=== PATIENT | male | born 1940 | race Caucasian/White ===

== ENCOUNTER 2016-10-07 12:46 | Observation (INO) ==
[2016-10-07] MEDS ORDERED: Furosemide 40 MG/4 ML VIAL IVP ONE (13:05)
--- NOTE | 2016-10-07 13:06 | Emergency Department Note ---
Disposition Clinical Impression: Atrial fibrillation with slow ventricular response, Acute on chronic renal failure Acute exacerbation of CHF (congestive heart failure) Qualifiers: Congestive heart failure type: unspecified congestive heart failure type Qualified Code(s): I50.9 - Heart failure, unspecified Disposition: Admitted As Inpatient Condition: Fair Time of Disposition: 15:02 SOB HPI - General Chief Complaint: ED Shortness of Breath/Dyspnea Stated Complaint: [place], retaining water Source: patient Limitations: no limitations Nursing Notes Reviewed: Yes Vital Signs Reviewed: Yes - History of Present Illness 76-year-old male with history of CAD status post double bypass in 1992, hypertension, hyperlipidemia, new diagnosis of atrial fibrillation, started on pelvic place on 09/12/2016 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 Patient states that he has had increased lower extremity swelling has some extra swelling on his abdomen as well. 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 History of CHF, CK D but is not on dialysis. 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 Denies fever or chills, approximately 10 pounds weight gain over the last month. Pt Subjective Complaint: shortness of breath Onset (ago): day(s) (3) Severity: moderate Consistency/Duration: intermittent Improves with: nothing Worsens with: lying flat, exertion Known history of: COPD, congestive heart failure Associated symptoms: Reports: denies other symptoms Treatment prior to arrival: none Cough present: Yes Cough Description: Voluntary Sputum production: No Sputum Amount: None - Related Data Home oxygen amount: none Previous Rx's Medication Instructions Recorded Albuterol Sulfate [Albuterol 1 puff IH Q4HR #1 hfa.aer.ad 09/12/16 Inhaler] Apixaban [Eliquis] 5 mg PO BID 30 Days 09/12/16 PredniSONE 40 mg PO DAILY 5 Days 09/12/16 Allergies Allergy/AdvReac Type Severity Reaction Status Date / Time No Known Allergies Allergy Verified 10/01/16 13:55 Review of Systems: A 14 point ROS was obtained and was negative except as per below or as documented in the HPI. Constitutional: Denies: fever, chills, weakness, weight change Eyes: Denies: eye pain, eye discharge, vision change ENT: Denies: ear pain, throat pain, hearing loss, epistaxis, congestion, Cardiovascular: Denies: chest pain, palpitations, dyspnea on exertion, edema, syncope Respiratory: dyspnea,Denies: cough, wheezes, hemoptysis, stridor Gastrointestinal: Denies: abdominal pain, nausea, vomiting. diarrhea, constipation, hematemesis, hematochezia Genitourinary: Denies: urgency, dysuria, frequency, hematuria Musculoskeletal: Denies: back pain, neck pain, arthralgia, myalgia Integumentary: leg swelling Denies: rash, abrasion, lesions Neurological: Denies: headache, weakness, numbness, paresthesias, confusion, abnormal gait Psychiatric: Denies: anxiety, depression, suicidal thoughts, homicidal thoughts , Endocrine: Denies: fatigue Hematological/Lymphatic: Denies: easy bleeding, easy bruising Allergic/Immunologic: Denies: facial swelling, urticaria All systems ED: reviewed and negative except as stated. Past Medical History - Past Medical History Attestation: Yes The following information was validated with the patient. Source: patient Medical history: Reports: coronary artery disease, diabetes, hyperlipidemia, hypertension, myocardial infarction Psychiatric history: Reports: no psych history - Social History Smoking Status: Current every day smoker Smokeless Tobacco Status: No Alcohol use: Reports: none Drug use: Reports: none Physical Exam General: alert and oriented, in NAD, appears stated age, is pleasant and cooperative to exam Head: NCAT, no lesions Eyes: sclera anicteric, conjunctiva normal, PERRLA bilaterally, EOMI Bilaterally Ears: normal inspection, external ear wnl Nose: nasal septum nondeviated, sinuses nontender Throat: good dentition, mucous membranes moist Neck: no lymphadenopathy, trachea midline no deviation, no JVD Resp: Crackles at the bases bilaterally CV: Bradycardia, diminished breaths heart sounds normal S1 and S2, no m/g/r, Pulses +2 Rad, +2 DP/PT Abdomen: Soft, NTND, no hepatosplenomegaly, no hernias, Negative Rovsing's sign , Negative Phelps's sign Back: normal inspection, no tenderness to palpation, Negative CVA tenderness bilaterally Neuro: A&O3, CN II-XII grossly intact bilaterally, no motor or sensory deficits bilaterally, gait normal, GCS 15 [id number] Ext: normal inspection, symmetric Active and Passive ROM UE and LE bilaterally , +3 pitting bilaterally Psych: normal mood, normal affect Skin: No rashes, skin warm, dry, intact - General Limitations: no limitations General appearance: alert, in no apparent distress Course Course Narrative: 76-year-old male history of CABG, nasal onset A. fib, his EKG shows A. fib with slow ventricular response rate of 49, ST segment changes relatively similar to his previous EKG last month, will get a full dyspnea workup including BNP, BMP CBC, troponin, chest x-ray and fluid diuresis Lasix, patient is on Lopressor but does not know his dose, and is compliant on his Eliquis Plan to diuresis admit to medicine for further workup. Vital Signs Temperature 98.3 F 10/07/16 12:49 Pulse Rate 51 10/07/16 12:49 Respiratory Rate 18 10/07/16 12:49 Blood Pressure 192/82 10/07/16 12:49 O2 Sat by Pulse Oximetry 96 10/07/16 12:49 Temperature 0 F L 10/07/16 15:31 Pulse Rate 51 10/07/16 14:59 Respiratory Rate 0 10/07/16 15:31 Blood Pressure 0/0 10/07/16 15:31 O2 Sat by Pulse Oximetry 98 10/07/16 14:59 Oxygen Delivery Oxygen Delivery Room Air Shortness of Breath/Dyspnea - [facility] Narrative Medical decision making narrative: Patient with atrial fibrillation, acute on chronic renal failure, acute CHF exacerbation, improved some with diuresis, added 0.4 sublingual nitroglycerin in the emergency department, patient is not on oxygen in the ED, is fairly stable. Plan for diuresis and admission hospitalist for further workup, Dr. Torres accepted, likely need echocardiography and cardiology consult - Differential Diagnosis Likely: acute exacerbation of chronic obstructive airways disease, congestive heart failure, pulmonary embolism - Medical Records Medical records reviewed: Yes I reviewed the patient's medical records. - Lab Data Lab results reviewed: Yes I reviewed the patient's lab results. Result diagrams: 10/07/16 13:39 10/07/16 13:39 Lab Results 10/07/16 10/07/16 10/07/16 Range/Units 13:39 13:39 13:39 WBC 9.3 (4.3-11.1) K/mcL RBC 4.00 L (4.19-5.50) M/mcL Hgb 12.9 (12.9-16.9) g/dL Hct 37.6 (37.5-50.1) % MCV 94.0 (83.0-100.0) fL MCH 32.3 (28.0-33.3) pg MCHC 34.3 (31.6-35.5) g/dL RDW 13.2 (11.5-14.5) % Plt Count 189 (140-400) K/mcL MPV 10.0 (9.4-12.4) fL Immature Gran % 0.2 (0-4) % Seg Neutrophils % 73.8 % Lymphocytes % 18.3 % Monocytes % 5.3 % Eosinophils % 1.6 % Basophils % 0.8 % Neutrophils # 6.8 (1.6-8.9) K/mcL Lymphocytes # 1.7 (0.6-4.6) K/mcL Monocytes # 0.5 (0.0-1.3) K/mcL Eosinophils # 0.2 (0.0-0.6) K/mcL Basophils # 0.1 (0.0-0.2) K/mcL Immature Plt Fraction 3.1 (1.1-6.1) % PT (9.4-12.1) Seconds INR APTT (26.0-36.0) Seconds Sodium 137 (136-145) mEq/L Potassium 4.2 (3.5-4.5) mEq/L Chloride 99 (98-109) mEq/L Carbon Dioxide 28 (19-29) mEq/L BUN 41 H (8-26) mg/dL Creatinine 2.80 H (0.72-1.25) mg/dL Est GFR ( Amer) 27 L (> 60) Est GFR (Non-Af Amer) 22 L (> 60) BUN/Creatinine Ratio 15 (6-26) Glucose 189 H (70-99) mg/dL Calculated Osmolality 299 (280-300) Calcium 9.5 (8.6-10.8) mg/dL Troponin I 0.02 (0-0.03) ng/mL B-Natriuretic Peptide (0-100) pg/mL Urine Color (Yellow) Urine Clarity (Clear) Urine pH (5.0-8.0) pH Units Ur Specific [place] (1.010-1.025) Urine Protein (Neg-Trace) mg/dL Urine Glucose (UA) (Normal) mg/dL Urine Ketones (Negative) mg/dL Urine Blood (Negative) Urine Nitrite (Negative) Urine Bilirubin (Negative) Urine Urobilinogen (Normal) mg/dL Ur Leukocyte Esterase (Negative) Urine Microscopic WBC (0-3) per hpf Ur Squamous Epith Cells (None-Few) per lpf Urine Bacteria (None-Few) per hpf Ur Culture Indicated? (NO) 10/07/16 10/07/16 10/07/16 Range/Units 13:39 13:39 14:12 WBC (4.3-11.1) K/mcL RBC (4.19-5.50) M/mcL Hgb (12.9-16.9) g/dL Hct (37.5-50.1) % MCV (83.0-100.0) fL MCH (28.0-33.3) pg MCHC (31.6-35.5) g/dL RDW (11.5-14.5) % Plt Count (140-400) K/mcL MPV (9.4-12.4) fL Immature Gran % (0-4) % Seg Neutrophils % % Lymphocytes % % Monocytes % % Eosinophils % % Basophils % % Neutrophils # (1.6-8.9) K/mcL Lymphocytes # (0.6-4.6) K/mcL Monocytes # (0.0-1.3) K/mcL Eosinophils # (0.0-0.6) K/mcL Basophils # (0.0-0.2) K/mcL Immature Plt Fraction (1.1-6.1) % PT 15.2 H (9.4-12.1) Seconds INR 1.4 APTT 37.0 H (26.0-36.0) Seconds Sodium (136-145) mEq/L Potassium (3.5-4.5) mEq/L Chloride (98-109) mEq/L Carbon Dioxide (19-29) mEq/L BUN (8-26) mg/dL Creatinine (0.72-1.25) mg/dL Est GFR ( Amer) (> 60) Est GFR (Non-Af Amer) (> 60) BUN/Creatinine Ratio (6-26) Glucose (70-99) mg/dL Calculated Osmolality (280-300) Calcium (8.6-10.8) mg/dL Troponin I (0-0.03) ng/mL B-Natriuretic Peptide 834 H (0-100) pg/mL Urine Color Yellow (Yellow) Urine Clarity Clear (Clear) Urine pH 7.0 (5.0-8.0) pH Units Ur Specific [place] 1.007 L (1.010-1.025) Urine Protein 100 H (Neg-Trace) mg/dL Urine Glucose (UA) Normal (Normal) mg/dL Urine Ketones Negative (Negative) mg/dL Urine Blood Negative (Negative) Urine Nitrite Negative (Negative) Urine Bilirubin Negative (Negative) Urine Urobilinogen Normal (Normal) mg/dL Ur Leukocyte Esterase Trace H (Negative) Urine Microscopic WBC 0-3 (0-3) per hpf Ur Squamous Epith Cells Few (None-Few) per lpf Urine Bacteria Few (None-Few) per hpf Ur Culture Indicated? YES A (NO) - Radiology Data Radiology results reviewed: Yes I reviewed the patient's radiology results. Chest X-Ray 10/07/16 13:05 IMPRESSION: 1. No acute cardiopulmonary disease. Specifically, no pulmonary edema. D/ / 10/07/2016 14:20:49 Bhumika Lan MD / Ayesha Turner Interpreting Provider: Bhumika Lan MD - EKG Data EKG attestation: Yes I reviewed and interpreted this EKG. Rate: Reports: bradycardia Rhythm: Reports: A.Fib (Ventricular rate 49 CT unseen, QRS 117 QTC 421) Interpretation: Reports: no acute changes (Previous EKG 09/12/2016) - Core Measures AMI Core Measures Followed: No Measure Exclusions: not indicated Critical Care Time Critical Care Time: Yes Total Critical Care Time: 30 Attestation: Critical care performed: Time is exclusive of separately billable procedures. Time includes: direct patient care, patient reassessment, coordination of patient care, interpretation of data (laboratory data, radiology data, and respiratory data), review of patient's medical records, medical consultation and documentation of patient care. Procedures included in critical care time: Procedures excluded from critical care time: Attestation Statement - Attestation Attestation: I examined this patient and my medical decision-making was reviewed with the BLEACHING MACHINE OPERATOR/PA/Advanced Practice Nurse/Resident Physician. I agree with the documented findings, disposition and treatment plan as described except to the extent set forth below. Patient presents to the emergency department with chief complaint of fluid overload. Patient has an extensive cardiac history. Recently diagnosed with A. fib and started on anticoagulation. States he has been gaining weight in his legs and swelling. He feels short of breath. On examination he appears well. He does have 3+ pitting edema bilaterally. Diffuse rails. Plan. Patient has clinically fluid overloaded. He has tried increasing his Lasix and outpatient with no success. New-onset A. fib that has not been worked up. We will admit.
[2016-10-07 13:49] LABS: Basophils # 0.1 K/mcL (0.0-0.2); Basophils % 0.8 %; Eosinophils # 0.2 K/mcL (0.0-0.6); Eosinophils % 1.6 %; Hematocrit 37.6 % (37.5-50.1); Hemoglobin 12.9 g/dL (12.9-16.9); Immature Granulocytes % 0.2 % (0-4); Immature Platelets 3.1 % (1.1-6.1); Lymphocytes # 1.7 K/mcL (0.6-4.6); Lymphocytes % 18.3 %; Mean Corpuscular HGB Conc 34.3 g/dL (31.6-35.5); Mean Corpuscular Hemoglobin 32.3 pg (28.0-33.3); Monocytes # 0.5 K/mcL (0.0-1.3); Monocytes % 5.3 %; Neutrophils # 6.8 K/mcL (1.6-8.9); Platelet Count 189 K/mcL (140-400); Red Cell Distribution Width 13.2 % (11.5-14.5); Segmented Neutrophils % 73.8 %
[2016-10-07 13:59] LABS: INR 1.4; Prothrombin Time 15.2 Seconds (9.4-12.1)
[2016-10-07 14:03] LABS: Calcium 9.5 mg/dL (8.6-10.8); Potassium 4.2 mEq/L (3.5-4.5)
[2016-10-07 14:18] LABS: Bilirubin,Urine Negative (Negative); Blood,Urine Negative (Negative); Clarity,Urine Clear (Clear); Color,Urine Yellow (Yellow); Glucose,Urine (UA) Normal (Normal); Ketones,Urine Negative (Negative); Leukocyte Esterase,Urine Trace (Negative); Nitrite,Urine Negative (Negative); Protein,Urine 100 mg/dL (Neg-Trace); Specific Gravity,Urine 1.007 (1.010-1.025); Urobilinogen,Urine Normal (Normal)
[2016-10-07 14:31] LABS: Squamous Epithelial Cell,Urine Few per lpf (None-Few)
[2016-10-07 14:33] LABS: Bacteria,Urine Few per hpf (None-Few); WBC,Urine 0-3 per hpf (0-3)
[2016-10-07] MEDS ORDERED: Nitroglycerin 0.4 MG TAB.SUBL SL PRN (14:59)
[2016-10-07 16:14] LABS: Albumin 3.4 g/dL (3.5-5.0); Bilirubin,Direct 0.2 mg/dL (0.0-0.5); Bilirubin,Indirect 0.3 mg/dL (0.0-1.2); Bilirubin,Total 0.5 mg/dL (0.2-1.2); Globulin 3.3 g/dL (2.4-3.5); Total Protein 6.7 g/dL (6.0-8.3)
[2016-10-07] MEDS ORDERED: Ondansetron 4 MG/2 ML VIAL IVP PRN (16:21)
[2016-10-07] MEDS ORDERED: Acetaminophen 325 MG TABLET PO PRN (16:21)
--- NOTE | 2016-10-07 16:21 | Internal Med History&Physical ---
<Doris Morales - Last Filed: 10/07/16 16:45> Date of Encounter: 10/07/16 Time of Encounter: 15:30 Assessment and Plan (1) Protein malnutrition Current visit: Yes Status: Chronic - Concern of protein malnutrition given reported poor appetite and proteinuria as seen on UA. - This likely causes third spacing and contributes to patient's persistent swelling of abdomen and bilateral lower extremities despite of aggressive diuresis. - Albumin 3.4. - Prealbumin pending. - Event Specialist Product Demonstrator consultation and appreciate nutrition recommendations. (2) CHF (congestive heart failure) Current visit: Yes Status: Chronic - I personally feel this is not acute exacerbation of CHF given patient has no shortness of breath, lungs don't sound wet and CXR doesn't suggest pulmonary edema. Patient's persistent swelling of abdomen and bilateral lower extremities are likely secondary third spacing associated with protein malnutrition. - BNP is relative stable compared to 4 weeks ago. - Will obtain medical records especially regarding latest echo result from [facility]. - Continue Lasix. - Fluid restriction 1.5 L. Qualifiers: Congestive heart failure type: unspecified congestive heart failure type Congestive heart failure chronicity: unspecified congestive heart failure chronicity Qualified Code(s): I50.9 - Heart failure, unspecified (3) CKD (chronic kidney disease) Current visit: Yes Status: Chronic - SCr 2.80 & eGFR 22 on initial presentation, relatively stable compared to SCr 2.56 & eGFR 24 on 09/12/16. - I personally don't think this is ABRAHAM given SCr increase less than 3 mg/dL and no decrease in urine output per patient. - Patient saw Dr. Steel in the past. - Continue to monitor renal function and electrolytes. Qualifiers: Chronic kidney disease stage: stage 4 (severe) Qualified Code(s): N18.4 - Chronic kidney disease, stage 4 (severe) (4) HTN (hypertension) Current visit: Yes Status: Chronic - BP as high as 192/82 on initial presentation. Likely rebound hypertension given patient reports not taking his BP medications yet. - Continue home regiment antihypertensive including clonidine, lisinopril and Norvasc. - Continue to monitor. Qualifiers: Hypertension type: essential hypertension Qualified Code(s): I10 - Essential (primary) hypertension (5) A-fib Current visit: Yes Status: Chronic - Likely status post ablation given constant bradycardia noted. - Continue Eliquis for anticoagulation. Qualifiers: Atrial fibrillation type: chronic Qualified Code(s): I48.2 - Chronic atrial fibrillation (6) CAD (coronary artery disease) Current visit: Yes Status: Chronic - Status post CABG. - Continue lisinopril and statin. Qualifiers: Coronary Disease-Associated Artery/Lesion type: [place] artery [place] vs. transplanted heart: [place] heart Associated angina: angina presence unspecified Qualified Code(s): I25.10 - Atherosclerotic heart disease of [place] coronary artery without angina pectoris (7) Diabetes mellitus Current visit: Yes Status: Acute - Basal and sliding scale insulin. - ADA diet. Qualifiers: Diabetes mellitus type: type 2 Diabetes mellitus complication status: with kidney complications Diabetes mellitus complication detail: with chronic kidney disease Diabetes mellitus middle or intermediate school principal insulin use: without jail use Chronic kidney disease stage: stage 4 (severe) Qualified Code(s): E11.22 - Type 2 diabetes mellitus with diabetic chronic kidney disease; N18.4 - Chronic kidney disease, stage 4 (severe) (8) DVT prophylaxis Current visit: Yes Status: Acute - Continue Eliquis. Internal Medicine - H&P: HPI Chief complaint: "I am retaining water" Admitted From: Emergency Dept Plans for Post Hospital Care: Home History of present illness: Mr. Bassett is a 76 year old male with PMH of CAD s/p CABG in 1992, CHF, A-fib on Eliquis, s/p pacemaker/defibrillator, DM on insulin, HTN, HLD, CKD. Patient presented with persistent swelling of abdomen and bilateral lower extremities for a month. Patient also reports 10-lb weight gain over a month. Patient saw his cardiology at [facility] last Saturday and his Lasix was changed from 40 mg PO BID to 80 mg BID. Patient thinks the medication change doesn't work since his urine output is about the same and "doesn't increase as he anticipated". He even tried to drink more water with the thinking that it will help him urinate more. Patient presented to ED today with concern of fluid overload and it potential effect on his breathing despite of he has been breathing without difficulty. Patient does have some nausea and poor appetite. Patient denies chest pain/discomfort, palpitation, lightheadedness, syncope, fever, chills, cough, shortness of breath. Patient was started on insulin one month ago and he states he is urinating protein. Patient states he has been compliant to all his medications. He admits drinking about 28 oz of fluid every day. Patient cannot recall when's his last echocardiogram done. Patient is full code. Past Med Surg Social Fam HX - Past Medical History Medical history: coronary artery disease (s/p CABG), diabetes, hyperlipidemia, hypertension, myocardial infarction Psychiatric history: no psych history - Past Surgical History Surgical History: coronary bypass (CABG), pacemaker/AICD - Social History Smoking Status: Current every day smoker Smokeless Tobacco Status: No Alcohol use: none Drug use: none - Family History Mother Hx Family Cardiac Disorders: Yes (HTN) Hx Family Endocrine Disorder: Yes (DM) Internal Medicine - H&P: Meds Albuterol Sulfate [Albuterol Inhaler] 1 puff IH Q4HR #1 hfa.aer.ad 09/12/16 [Rx] Apixaban [Eliquis] 5 mg PO BID 30 Days 09/12/16 [Rx] PredniSONE 40 mg PO DAILY 5 Days 09/12/16 [Rx] CloNIDine 0.1 mg PO BID 10/07/16 [History] Glimepiride 4 mg BID 10/07/16 [History] Lantus 10 units SQ DAILY 10/07/16 [History] Lasix 80 mg PO BID 10/07/16 [History] Lisinopril 40 mg PO DAILY 10/07/16 [History] Lovastatin 20 mg PO DAILY 10/07/16 [History] Norvasc 10 mg PO DAILY 10/07/16 [History] Allergies No Known Allergies Allergy (Verified 10/01/16 13:55) All Systems PM: A 10-system review of systems was performed and is negative for pertinent findings except as documented above in the HPI. - Constitutional Constitutional: anorexia, weight gain (10 lb over a month.), no chills, no fever (s) - EENT Eyes: no change in vision Ears: no decreased hearing Nose, mouth and throat: no dysphagia - Cardiovascular Cardiovascular ROS IM: as per HPI, edema, no chest pain, no lightheadedness, no palpitations, no syncope - Respiratory Respiratory: no cough, no dyspnea, no hemoptysis, no excessive phlegm production - Gastrointestinal Gastrointestinal: abdominal pain (Abdominal swelling/fullness), nausea, no diarrhea, no hematochezia, no melena, no vomiting - Genitourinary Genitourinary ROS male: no difficulty urinating, no dysuria, no hematuria - Musculoskeletal Musculoskeletal ROS IM: no arthralgias, no myalgias - Integumentary Integumentary IM: no pruritus, no rash - Neurological Neurological ROS: no focal weakness, no numbness, no tingling - Hematologic/Lymphatic Hematologic/Lymphatic: easy bruising, no easy bleeding - Constitutional Vitals: Temp Pulse Resp BP Pulse Ox 98.1 F 93 15 197/77 94 L 10/07/16 16:01 10/07/16 16:01 10/07/16 16:01 10/07/16 16:10/07/16 16:01 General appearance: Present: cooperative, A&O X 3, no acute distress, answers questions appropriately - Head Head exam: Present: atraumatic, normocephalic - Eye Eye exam: Present: PERRL, conjuntiva pink, sclera anicteric - Neck Neck exam general surgery: Present: supple, trachea midline. Absent: lymphadenopathy - Respiratory Respiratory exam: Absent: accessory muscle use, rales, rhonchi, wheezes Additional comments: Course breathing sounds - Cardiovascular Cardiovascular exam: Present: irregular rhythm, +S1, +S2. Absent: diastolic murmur, gallop, rubs, systolic murmur - GI/Abdominal GI/Abdominal exam: Present: normal bowel sounds, soft, no peritoneal signs. Absent: distended, tenderness - Extremities Exam Extremities exam: Present: pedal edema ([id number] BLE pitting edema), warm, radial pulses palpable and symetrical. Absent: calf tenderness, cyanotic - Neurological Exam Neurological exam: Present: CN II-XII intact, oriented X3, no focal deficits. Absent: pronater drift, facial droop, speech deficit - Skin Skin exam: Present: dry, intact, warm Internal Med - H&P Results - Labs CBC & Chem 7: 10/07/16 13:39 10/07/16 13:39 <Isreal Torres - Last Filed: 10/07/16 17:41> Date of Encounter: 10/07/16 Internal Medicine - H&P: HPI History of present illness: Mr. Bassett is a 76 year old male All Systems PM: A 10-system review of systems was performed and is negative for pertinent findings except as documented above in the HPI. - Constitutional Vitals: Temp Pulse Resp BP Pulse Ox 98.1 F 93 15 197/77 94 L 10/07/16 16:01 10/07/16 16:01 10/07/16 16:01 10/07/16 16:10/07/16 16:01 Internal Med - H&P Results - Labs CBC & Chem 7: 10/07/16 13:39 10/07/16 13:39 - Attending Attestation I saw and examined this patient independently. I have discussed this case with the resident Dr. Rufus Morales. I agree with the H&P, physical examination findings, assessment and plan as documented by the resident. Patient with history of CHF, has been lately no fluid retention. Additionally, the patient likely has a component of malnutrition. Proteinuria noted. We will continue with diuretic therapy and monitor electrolytes. Prealbumin levels have been requested. D/W patient.
[2016-10-07] MEDS ORDERED: Dextrose Gel 15 GM PO PRN ×2 (16:27)
[2016-10-07] MEDS ORDERED: D5% in Water 1,000 ML IV PRN (16:27)
[2016-10-07] MEDS ORDERED: *HR* Dextrose 50 % in Water (Syg) 50 ML SYRINGE IVP PRN (16:27)
[2016-10-07] MEDS: amLODIPine 5 MG TABLET PO SCH (17:49)
[2016-10-07] MEDS: Insulin LISPRO 300 UNITS/3 ML VIAL SQ SCH (17:49)
[2016-10-07] MEDS: Lisinopril 20 MG TABLET PO SCH (17:49)
[2016-10-07] MEDS: Furosemide 40 MG TABLET PO SCH (20:10)
[2016-10-07] MEDS: APIXABAN 5 MG TABLET PO SCH (20:11)
[2016-10-07] MEDS: cloNIDine HCl 0.1 MG TABLET PO SCH (20:11)
[2016-10-07] MEDS ORDERED: Insulin LISPRO 300 UNITS/3 ML VIAL SQ SCH (21:00)
[2016-10-08 05:46] LABS: Hematocrit 37.1 % (37.5-50.1); Hemoglobin 12.3 g/dL (12.9-16.9); Mean Corpuscular HGB Conc 33.2 g/dL (31.6-35.5); Mean Corpuscular Hemoglobin 31.5 pg (28.0-33.3); Mean Corpuscular Volume 94.9 fL (83.0-100.0); Mean Platelet Volume 10.6 fL (9.4-12.4); Neutrophils # 5.5 K/mcL (1.6-8.9); Platelet Count 178 K/mcL (140-400); Red Blood Count 3.91 M/mcL (4.19-5.50); Red Cell Distribution Width 13.2 % (11.5-14.5); Segmented Neutrophils % 63.4 %
[2016-10-08 05:47] LABS: Basophils # 0.1 K/mcL (0.0-0.2); Basophils % 0.6 %; Eosinophils # 0.2 K/mcL (0.0-0.6); Immature Granulocytes % 0.2 % (0-4); Lymphocytes # 2.3 K/mcL (0.6-4.6); Lymphocytes % 26.3 %; Monocytes # 0.7 K/mcL (0.0-1.3); Monocytes % 7.5 %
[2016-10-08 05:55] LABS: Calcium 8.9 mg/dL (8.6-10.8); Potassium 3.7 mEq/L (3.5-4.5)
[2016-10-08] MEDS: Furosemide 40 MG TABLET PO SCH (08:23)
[2016-10-08] MEDS: cloNIDine HCl 0.1 MG TABLET PO SCH (08:23)
[2016-10-08] MEDS: Lisinopril 20 MG TABLET PO SCH (08:23)
[2016-10-08] MEDS: amLODIPine 5 MG TABLET PO SCH (08:23)
[2016-10-08] MEDS: APIXABAN 5 MG TABLET PO SCH (08:23)
[2016-10-08] MEDS: Insulin LISPRO 300 UNITS/3 ML VIAL SQ SCH ×2 (08:24→11:30)
[2016-10-08] MEDS ORDERED: LANTUS 10 UNIT SQ SCH (09:00)
[2016-10-08] MEDS ORDERED: Insulin DETEMIR 100 UNIT/ML X5UNITS SQ SCH (09:00)
[2016-10-08 11:14] VITALS: BP 157/75
--- NOTE | 2016-10-08 14:14 | Discharge Summary ---
Date of Encounter: 10/08/16 Time of Encounter: 13:30 - Discharge Medications Prescriptions: Nitroglycerin 0.4 mg SL Q5MIN PRN #30 tab.subl PRN Reason: Chest Pain Acetaminophen [Tylenol] 650 mg PO Q6HR PRN #60 tablet PRN Reason: mild pain or fever Cyanocobalamin (B-12) [Vitamin B12] 1,000 mcg PO DAILY #90 tablet Ergocalciferol (VITAMIN D2) [Vitamin D2] 50,000 unit PO QWEEK #10 capsule Thiamine HCl 250 mg PO DAILY #90 tablet Home Medications: Albuterol Sulfate [Albuterol Inhaler] 1 puff IH Q4HR #1 hfa.aer.ad 09/12/16 [Rx] Amlodipine Besylate 10 mg PO DAILY 10/07/16 [History] CloNIDine HCl 0.1 mg PO BID 10/07/16 [History] Glimepiride [Amaryl] 4 mg PO BID 10/07/16 [History] Insulin Glargine,Hum.rec.anlog [Lantus Solostar] 10 unit SQ DAILY 10/07/16 [ History] Lisinopril [Zestril] 40 mg PO DAILY 10/07/16 [History] Lovastatin [Mevacor] 20 mg PO HS 10/07/16 [History] Acetaminophen [Tylenol] 650 mg PO Q6HR PRN #60 tablet 10/08/16 [Rx] Cyanocobalamin (B-12) [Vitamin B12] 1,000 mcg PO DAILY #90 tablet 10/08/16 [Rx] Ergocalciferol (VITAMIN D2) [Vitamin D2] 50,000 unit PO QWEEK #10 capsule [Rx] Furosemide [Lasix] 40 mg PO BID #0 10/08/16 [Rx] Metoprolol [Lopressor] 100 mg PO BID 10/08/16 [History] Nitroglycerin 0.4 mg SL Q5MIN PRN #30 tab.subl 10/08/16 [Rx] Thiamine HCl 250 mg PO DAILY #90 tablet 10/08/16 [Rx] Allergies/Adverse Reactions: Allergies No Known Allergies Allergy (Verified 10/01/16 13:55) Date of admission: 10/07/16 15:09 Primary care physician: Malik Roberts Consults: 10/07/16 16:42 Consult to Nutrition [CONS] Routine Comment: Protein malnutrit w/ proteinuria & poor PO intake Consulting Provider: NUTRITION Reason for Dietary Consult: Supplemental Nutrition - Patient Status Disposition: Home, Self-Care Condition: Good Functional capacity at discharge: independent ambulation Overall status at discharge: patient is back to baseline - Discharge Instructions Follow Up With: Malik Roberts DO [Primary Care Provider] - Additional Instructions: Follow-up with nephrology and cardiology in 1 week. Daily weight. Compression stocking lower extremities. Reported daily weight and vital sign to nephrology and cardiology. BMP checked in 1 week - Diet and Activity Activity: resume usual activities as tolerated Diet: low fat, low cholesterol, low salt diet Hospital course: Mr. Bassett is a 76 year old male - Time Spent with Patient Total time spent providing and/or coordinating discharge services: - Constitutional Vitals: Temp Pulse Resp BP Pulse Ox 97.3 F L 61 16 157/75 96 10/08/16 11:13 10/08/16 11:13 10/08/16 11:13 10/08/16 11:13 10/08/16 11:13 General appearance: Present: cooperative, A&O X 3, no acute distress, answers questions appropriately
--- NOTE | 2016-10-08 14:37 | Electrocardiograph Report ---
[facility] Test Date: 2016-10-07 Pat Name: Nino Bassett Department: 103 Room: 3B33 Gender: M Service Team Leader: [facility] [place] : 1940 Requested By: Tk Barrett Order Number: [id number] Reading MD: Michele Rosa MD Measurements Intervals [place] Rate: 49 P: TN: 0 QRS: 58 QRSD: 117 T: 209 QT: 451 QTc: 421 Interpretive Statements ATRIAL FIBRILLATION WITH SLOW VENTRICULAR RESPONSE POOR R WAVE PROGRESSION INCOMPLETE LBBB Electronically Signed On 10-08-16 14:36:16 EST by Michele Rosa MD
--- NOTE | 2016-12-29 09:34 | Event Note ---
Date of Encounter: 12/29/16 Time of Encounter: 09:31 76 y/o male placed in observation early this AM for presumed exac CHF. Pt admitted here 10/23 for similar symptoms. He normally follows with [facility]. Denies chest pain and dyspnea currently. Exam Alert. Conversant Heart reg - murmur heard Lungs clear at this time Edema bilateral lower extremities. Plan Echo results pending Creatinine monitoring Will use low dose lasix drip overnight Not sure this is overt CHF at this time Renal consult in AM
== END 2016-10-08 15:00 | disposition home or self-care (01) ==
LOC: 3BNU 12:46 → EMEROO 12:46 → 3BNU 15:50
PROVIDERS: ADMIT Internal Medicine; ATTEND Internal Medicine

== ENCOUNTER 2016-12-28 19:36 | Observation (INO) ==
[2016-12-28 21:35] LABS: Basophils # 0.1 K/mcL (0.0-0.2); Basophils % 0.9 %; Eosinophils # 0.2 K/mcL (0.0-0.6); Eosinophils % 1.8 %; Hematocrit 41.1 % (37.5-50.1); Hemoglobin 13.9 g/dL (12.9-16.9); Immature Granulocytes % 0.4 % (0-4); Lymphocytes # 2.7 K/mcL (0.6-4.6); Lymphocytes % 26.5 %; Mean Corpuscular HGB Conc 33.8 g/dL (31.6-35.5); Mean Corpuscular Hemoglobin 31.7 pg (28.0-33.3); Mean Corpuscular Volume 93.6 fL (83.0-100.0); Mean Platelet Volume 9.8 fL (9.4-12.4); Monocytes # 0.7 K/mcL (0.0-1.3); Monocytes % 6.7 %; Neutrophils # 6.5 K/mcL (1.6-8.9); Platelet Count 219 K/mcL (140-400); Red Blood Count 4.39 M/mcL (4.19-5.50); Red Cell Distribution Width 13.2 % (11.5-14.5); Segmented Neutrophils % 63.7 %
[2016-12-28 21:48] LABS: Calcium 10.2 mg/dL (8.6-10.8); Potassium 4.1 mEq/L (3.5-4.5)
--- NOTE | 2016-12-28 22:06 | Emergency Department Note ---
START Narrative - START START: I examined this patient and my medical decision-making was reviewed with the JAVA CORE DEVELOPER/PA/Advanced Practice Nurse/Resident Physician. I agree with the documented findings, disposition and treatment plan as described except to the extent set forth below. ED attending note: Patient seen with emergency medicine resident Dr. Henry. Please see a copy of his note for details of the H&P, evaluation, management and disposition of this patient. We independently had [id number] contact with the patient Briefly: Recently discharged from [facility] with CHF. Set 30 pound weight gain over the past month with dyspnea on exertion. He has atrial fibrillation and bibasilar rales. Patient did diuresis and screening labs. EKG shows A. fib with rate control. Provided 40 minutes critical care services to this patient. Disposition pending.
[2016-12-28] MEDS ORDERED: Furosemide 80 MG in 0.9 % Sodium Chloride 50 ML IVPB ONE (22:11)
[2016-12-28] MEDS ORDERED: Furosemide 100 MG/10 ML VIAL IVP ONE (22:15)
--- NOTE | 2016-12-28 22:31 | Emergency Department Note ---
Disposition Clinical Impression: CHF (congestive heart failure) Qualifiers: Congestive heart failure type: unspecified congestive heart failure type Congestive heart failure chronicity: acute on chronic Qualified Code(s): I50.9 - Heart failure, unspecified Fluid overload Qualifiers: Hypervolemia type: unspecified Qualified Code(s): E87.70 - Fluid overload, unspecified Chronic kidney disease Qualifiers: Chronic kidney disease stage: unspecified stage Qualified Code(s): N18.9 - Chronic kidney disease, unspecified Disposition: Admitted As Inpatient Condition: Good Time of Disposition: 00:38 SOB HPI - General Chief Complaint: ED Shortness of Breath/Dyspnea Stated Complaint: "LINWOOD/Swelling" Time Seen by Provider: 12/28/16 21:10 Source: patient Limitations: no limitations Nursing Notes Reviewed: Yes Vital Signs Reviewed: Yes - History of Present Illness Pt Subjective Complaint: shortness of breath Onset (ago): day(s) (3-4 days) Severity: moderate Consistency/Duration: constant Improves with: rest, upright position Worsens with: lying flat, movement Known history of: congestive heart failure - Related Data Home Medications Medication Instructions Recorded Confirmed Amlodipine Besylate 10 mg PO DAILY 10/07/16 12/28/16 CloNIDine HCl 0.1 mg PO TID 10/07/16 12/28/16 Glimepiride [Amaryl] 4 mg PO BID 10/07/16 12/28/16 Insulin Glargine,Hum.rec.anlog 10 unit SQ DAILY 10/07/16 12/28/16 [Lantus Solostar] Lisinopril [Zestril] 40 mg PO DAILY 10/07/16 12/28/16 Lovastatin [Mevacor] 20 mg PO HS 10/07/16 12/28/16 Metoprolol [Lopressor] 100 mg PO BID 10/08/16 12/28/16 Albuterol Sulfate [Albuterol 2 puff IH Q4HR PRN 12/28/16 12/28/16 Inhaler] Apixaban [Eliquis] 2.5 mg PO BID 12/28/16 12/28/16 Furosemide [Lasix] 80 mg PO BID 12/28/16 12/28/16 HydrALAZINE 25 mg PO BID 12/28/16 12/28/16 Omeprazole [PriLOSEC] 20 mg PO DAILY 12/28/16 12/28/16 Previous Rx's Medication Instructions Recorded Acetaminophen [Tylenol] 650 mg PO Q6HR PRN #60 tablet 10/08/16 Cyanocobalamin (B-12) [Vitamin B12] 1,000 mcg PO DAILY #90 tablet 10/08/16 Ergocalciferol (VITAMIN D2) 50,000 unit PO QWEEK #10 capsule 10/08/16 [Vitamin D2] Nitroglycerin 0.4 mg SL Q5MIN PRN #30 tab.subl 10/08/16 Thiamine HCl 250 mg PO DAILY #90 tablet 10/08/16 Allergies Allergy/AdvReac Type Severity Reaction Status Date / Time No Known Allergies Allergy Verified 12/28/16 19:49 All systems ED: reviewed and negative except as stated. Cardiovascular: Reports: dyspnea on exertion, orthopnea. Denies: chest pain, palpitations Respiratory: Reports: dyspnea. Denies: wheezes Gastrointestinal: Denies: nausea, vomiting, diarrhea Genitourinary: Denies: dysuria Musculoskeletal: Denies: back pain, neck pain Neurological: Denies: headache Past Medical History - Past Medical History Attestation: Yes The following information was validated with the patient. Source: patient Medical history: Reports: coronary artery disease, diabetes, hyperlipidemia, hypertension, myocardial infarction Surgical history: Reports: coronary bypass (CABG), pacemaker/AICD Psychiatric history: Reports: no psych history - Social History Smoking Status: Current every day smoker Smokeless Tobacco Status: No Alcohol use: Reports: none Drug use: Reports: none Physical Exam - General Limitations: no limitations General appearance: alert - Respiratory Respiratory exam: Present: normal lung sounds bilaterally. Absent: respiratory distress, wheezes, accessory muscle use - Cardiovascular Cardiovascular exam: Present: regular rate, normal rhythm, normal heart sounds - Abdominal Exam Abdominal exam: Present: soft, Non-Tender, normal bowel sounds. Absent: tenderness, distention, guarding, rebound, rigidity - Extremities Exam Extremities exam: Present: normal inspection, full ROM, pedal edema (Bilateral pitting edema up to the mid shaft of the thigh) - Neurological Exam Neurological exam: Present: alert, oriented X3, CN II-XII intact - Skin Skin exam: Present: warm, dry, intact, normal color Course Course Narrative: Patient seen and examined the time of arrival. See history of present illness. 76-year-old male presents here today with what he describes as 30 pound weight gain over the last week and a half. He was just discharged from the hospital within the last week for similar issue. He has a previous CABG and defibrillator in place. He does not have heart failure according to him. Patient was concerned and decided to come the emergency room because his legs were getting more swollen and is having shortness of breath with exertion. Patient denies any other significant medical history this time. He denies any medication changes. He has not had any fevers chills nausea vomiting or diarrhea. Denies chest pain headache vision changes. His main complaint is shortness of breath and swelling. Patient has +3 pitting edema up to the mid thigh. Lungs are clear. Mild anasarca in the abdomen. Patient also has history of poor nutritional status. Some of this could be secondary to poor oncotic pressure. Patient did have EKG chest x-ray labs including BNP and troponin ordered. Patient will also be provided a first dose of Lasix here in the emergency room. Disposition will most likely be admission to the hospital. Patient is in no distress at this time resting comfortably in the bed as long as he does not exert himself. - Reevaluation(s) Reevaluation #1: Patient showing focal signs of fluid overload secondary to poorly controlled congestive heart failure. He also has been on Lasix chronically. He might have resistance to this medication this time. Patient initially refused chest x -ray. Hospitalist did not feel comfortable admitting the patient had chest x- ray completed. We are waiting for that imaging study to be completed this time and he will have admission process completed that point. Patient stable resting comfortably in the bed Time: 00:38 Reevaluation #2: Chest x-ray stable. Patient to be admitted for failure of antibiotic regimen. No other acute issues at this time. Hospitalist accepted without any issue. Patient stable and in good medical condition of the time of admission process been completed. Time: 01:26 Vital Signs Temperature 98.7 F 12/28/16 19:49 Pulse Rate 69 12/28/16 19:49 Respiratory Rate 20 12/28/16 19:49 Blood Pressure 178/77 12/28/16 19:49 O2 Sat by Pulse Oximetry 96 12/28/16 19:49 Temperature 98.7 F 12/28/16 19:49 Pulse Rate 63 12/29/16 00:15 Respiratory Rate 20 12/29/16 01:17 Blood Pressure 167/89 12/29/16 01:17 O2 Sat by Pulse Oximetry 97 12/29/16 00:15 Oxygen Delivery Oxygen Delivery Room Air Shortness of Breath/Dyspnea - MDM Narrative Medical decision making narrative: Fluid overload, exertional dyspnea, CHF - Medical Records Medical records reviewed: Yes I reviewed the patient's medical records. - Lab Data Lab results reviewed: Yes I reviewed the patient's lab results. Result diagrams: 12/28/16 21:28 12/28/16 21:28 Lab Results 12/28/16 12/28/16 12/28/16 Range/Units 21:28 21:28 21:28 WBC 10.1 (4.3-11.1) K/mcL RBC 4.39 (4.19-5.50) M/mcL Hgb 13.9 (12.9-16.9) g/dL Hct 41.1 (37.5-50.1) % MCV 93.6 (83.0-100.0) fL MCH 31.7 (28.0-33.3) pg MCHC 33.8 (31.6-35.5) g/dL RDW 13.2 (11.5-14.5) % Plt Count 219 (140-400) K/mcL MPV 9.8 (9.4-12.4) fL Immature Gran % 0.4 (0-4) % Seg Neutrophils % 63.7 % Lymphocytes % 26.5 % Monocytes % 6.7 % Eosinophils % 1.8 % Basophils % 0.9 % Neutrophils # 6.5 (1.6-8.9) K/mcL Lymphocytes # 2.7 (0.6-4.6) K/mcL Monocytes # 0.7 (0.0-1.3) K/mcL Eosinophils # 0.2 (0.0-0.6) K/mcL Basophils # 0.1 (0.0-0.2) K/mcL Sodium 138 (136-145) mEq/L Potassium 4.1 (3.5-4.5) mEq/L Chloride 100 (98-109) mEq/L Carbon Dioxide 24 (19-29) mEq/L BUN 55 H (8-26) mg/dL Creatinine 3.44 H (0.72-1.25) mg/dL Est GFR ( Amer) 21 L (> 60) Est GFR (Non-Af Amer) 17 L (> 60) BUN/Creatinine Ratio 16 (6-26) Glucose 245 H (70-99) mg/dL Calculated Osmolality 309 H (280-300) Calcium 10.2 (8.6-10.8) mg/dL Troponin I 0.03 (0-0.03) ng/mL B-Natriuretic Peptide (0-100) pg/mL 12/28/16 Range/Units 21:28 WBC (4.3-11.1) K/mcL RBC (4.19-5.50) M/mcL Hgb (12.9-16.9) g/dL Hct (37.5-50.1) % MCV (83.0-100.0) fL MCH (28.0-33.3) pg MCHC (31.6-35.5) g/dL RDW (11.5-14.5) % Plt Count (140-400) K/mcL MPV (9.4-12.4) fL Immature Gran % (0-4) % Seg Neutrophils % % Lymphocytes % % Monocytes % % Eosinophils % % Basophils % % Neutrophils # (1.6-8.9) K/mcL Lymphocytes # (0.6-4.6) K/mcL Monocytes # (0.0-1.3) K/mcL Eosinophils # (0.0-0.6) K/mcL Basophils # (0.0-0.2) K/mcL Sodium (136-145) mEq/L Potassium (3.5-4.5) mEq/L Chloride (98-109) mEq/L Carbon Dioxide (19-29) mEq/L BUN (8-26) mg/dL Creatinine (0.72-1.25) mg/dL Est GFR ( Amer) (> 60) Est GFR (Non-Af Amer) (> 60) BUN/Creatinine Ratio (6-26) Glucose (70-99) mg/dL Calculated Osmolality (280-300) Calcium (8.6-10.8) mg/dL Troponin I (0-0.03) ng/mL B-Natriuretic Peptide 982 H (0-100) pg/mL - Radiology Data Radiology results reviewed: Yes I reviewed the patient's radiology results. - EKG Data EKG attestation: Yes I reviewed and interpreted this EKG. Rate: Reports: normal Rhythm: Reports: A.Fib Brethren/QRS: Reports: normal When compared to previous EKG there are: no significant changes (04/27/05) Interpretation: Reports: no acute changes, unchanged when compared to prior tracing (date)
--- NOTE | 2016-12-29 02:21 | Internal Med History&Physical ---
Date of Encounter: 12/29/16 Time of Encounter: 02:16 Assessment and Plan (1) Fluid overload Current visit: Yes Status: Acute Patient with history of CHF, he is non-tachycardic, no hypoxemic, chest x-ray did not reveal signs of pulmonary edema. However his BNP is elevated. Will check input and output and monitor the patient closely. We will obtain and monitor kidney function tests and electrolytes. Upon reviewing patient's medications he is on amlodipine which could potentially cause edema lower extremities. We will hold amlodipine for now. Oxygen therapy as needed. Trend troponin. Qualifiers: Hypervolemia type: unspecified Qualified Code(s): E87.70 - Fluid overload, unspecified (2) HTN (hypertension) Current visit: No Status: Chronic Uncontrolled hypertension, we will resume home medications. Avoid JAMAL inhibitor in the setting of acute kidney injury. Qualifiers: Hypertension type: essential hypertension Qualified Code(s): I10 - Essential (primary) hypertension (3) Acute on chronic renal failure Current visit: No Status: Acute Patient with history of chronic kidney disease. Avoid nephrotoxic agents. Monitor kidney function tests. (4) Diabetes mellitus Current visit: No Status: Acute Monitor fingerstick. Insulin therapy. Qualifiers: Diabetes mellitus type: type 2 Diabetes mellitus complication status: with kidney complications Diabetes mellitus complication detail: with chronic kidney disease Diabetes mellitus computer terminal operator insulin use: without computer terminal operator use Chronic kidney disease stage: stage 4 (severe) Qualified Code(s): E11.22 - Type 2 diabetes mellitus with diabetic chronic kidney disease; N18.4 - Chronic kidney disease, stage 4 (severe) (5) DVT prophylaxis Current visit: No Status: Acute Patient on eliquis due to history of atrial fibrillation (6) A-fib Current visit: No Status: Chronic Continue with rate control medications. Anticoagulation with eliquis. Qualifiers: Atrial fibrillation type: chronic Qualified Code(s): I48.2 - Chronic atrial fibrillation (7) CHF (congestive heart failure) Current visit: Yes Status: Chronic Obtain echo. Qualifiers: Congestive heart failure type: unspecified congestive heart failure type Congestive heart failure chronicity: acute on chronic Qualified Code(s): I50.9 - Heart failure, unspecified Internal Medicine - H&P: HPI Chief complaint: fluid retention Admitted From: Emergency Dept Plans for Post Hospital Care: Home History of present illness: Mr. Bassett is a 76 year old male with PMH of CAD s/p CABG in 1992, CHF, A-fib on Eliquis, s/p pacemaker/defibrillator, DM on insulin, HTN, HLD, CKD. The patient states that 3 months ago was started on insulin and has been gaining weight ever since. Additionally he is on Lasix 80 mg twice a day however he has gained around 30 pounds in the last 6 weeks. He went to see a primary care physician recently and was recommended to obtain a chest x-ray for further evaluation. The patient denies shortness of breath at rest, fever, chills, however has dyspnea on exertion. Recently, he has noticed swelling in both lower extremities and increase in abdominal girth. He was evaluated in our emergency department and his blood work was essentially unremarkable however he has some elevation in the brain natriuretic peptide and worsening kidney function. Chest x-ray did not reveal pulmonary edema. He has been hypertensive since he presented to our emergency department. He did receive a dose of 80 mg Lasix via IV in the ED. He was admitted for further management and workup. Initial troponin was negative. Past Med Surg Social Fam HX - Past Medical History Medical history: coronary artery disease, diabetes, hyperlipidemia, hypertension , myocardial infarction Psychiatric history: no psych history - Past Surgical History Surgical History: coronary bypass (CABG), pacemaker/AICD - Social History Smoking Status: Current every day smoker Smokeless Tobacco Status: No Alcohol use: none Drug use: none - Family History Mother Hx Family Cardiac Disorders: Yes (HTN) Hx Family Endocrine Disorder: Yes (DM) Internal Medicine - H&P: Meds Amlodipine Besylate 10 mg PO DAILY 10/07/16 [History] CloNIDine HCl 0.1 mg PO TID 10/07/16 [History] Glimepiride [Amaryl] 4 mg PO BID 10/07/16 [History] Insulin Glargine,Hum.rec.anlog [Lantus Solostar] 10 unit SQ DAILY 10/07/16 [ History] Lisinopril [Zestril] 40 mg PO DAILY 10/07/16 [History] Lovastatin [Mevacor] 20 mg PO HS 10/07/16 [History] Acetaminophen [Tylenol] 650 mg PO Q6HR PRN #60 tablet 10/08/16 [Rx] Cyanocobalamin (B-12) [Vitamin B12] 1,000 mcg PO DAILY #90 tablet 10/08/16 [Rx] Ergocalciferol (VITAMIN D2) [Vitamin D2] 50,000 unit PO QWEEK #10 capsule [Rx] Metoprolol [Lopressor] 100 mg PO BID 10/08/16 [History] Nitroglycerin 0.4 mg SL Q5MIN PRN #30 tab.subl 10/08/16 [Rx] Thiamine HCl 250 mg PO DAILY #90 tablet 10/08/16 [Rx] Albuterol Sulfate [Albuterol Inhaler] 2 puff IH Q4HR PRN 12/28/16 [History] Apixaban [Eliquis] 2.5 mg PO BID 12/28/16 [History] Furosemide [Lasix] 80 mg PO BID 12/28/16 [History] HydrALAZINE 25 mg PO BID 12/28/16 [History] Omeprazole [PriLOSEC] 20 mg PO DAILY 12/28/16 [History] Allergies No Known Allergies Allergy (Verified 12/28/16 19:49) All Systems PM: A 10-system review of systems was performed and is negative for pertinent findings except as documented above in the HPI. - Constitutional Constitutional: as per HPI, no chills, no fever(s), no night sweats - EENT Eyes: as per HPI, no change in vision, no discharge, no pain, no photophobia Ears: as per HPI, no ear discharge, no ear pain, no tinnitus Nose, mouth and throat: as per HPI, no dysphagia, no nasal discharge, no neck pain, no sore throat - Breasts Breasts: as per HPI - Cardiovascular Cardiovascular ROS IM: as per HPI, dyspnea, dyspnea on exertion, edema, irregular heart rhythm, no chest pain, no diaphoresis, no lightheadedness, no palpitations, no syncope - Respiratory Respiratory: as per HPI, cough, dyspnea, dyspnea on exertion, no wheezing, no excessive phlegm production - Gastrointestinal Gastrointestinal: as per HPI, no abdominal pain, no diarrhea, no hematemesis, no hematochezia, no melena, no nausea, no vomiting - Genitourinary Genitourinary ROS male: as per HPI - Musculoskeletal Musculoskeletal ROS IM: as per HPI, no numbness, no tingling - Integumentary Integumentary IM: as per HPI, no rash, no unusual bruising - Neurological Neurological ROS: as per HPI, no confusion, no convulsions, no focal weakness, no numbness, no tingling, no tremor(s) - Psychiatric Psychiatric: as per HPI - Endocrine Endocrine IM: as per HPI - Hematologic/Lymphatic Hematologic/Lymphatic: as per HPI, no easy bruising - Allergic/Immunologic Allergic/Immunologic: as per HPI - Constitutional Vitals: Temp Pulse Resp BP Pulse Ox 98.7 F 63 20 167/89 97 12/28/16 19:49 12/29/16 00:15 12/29/16 01:17 12/29/16 01:17 12/29/16 00:15 General appearance: Present: cooperative, A&O X 3, pleasant, no acute distress - Head Head exam: Present: atraumatic, normocephalic - Eye Eye exam: Present: PERRL, conjuntiva pink, sclera anicteric Pupils: Present: PERRL - Neck Neck exam general surgery: Present: supple, trachea midline. Absent: lymphadenopathy - Respiratory Respiratory exam: Present: CTAB. Absent: accessory muscle use, rales, rhonchi, wheezes - Cardiovascular Cardiovascular exam: Present: irregular rhythm, +S1, +S2. Absent: diastolic murmur, gallop, rubs, systolic murmur - GI/Abdominal GI/Abdominal exam: Present: normal bowel sounds, soft, no peritoneal signs. Absent: distended, tenderness - Extremities Exam Extremities exam: Present: pedal edema, warm, radial pulses palpable and symetrical. Absent: calf tenderness, cyanotic - Neurological Exam Neurological exam: Present: CN II-XII intact, oriented X3, no focal deficits. Absent: pronater drift, facial droop, speech deficit - Skin Skin exam: Present: dry, intact Internal Med - H&P Results - Labs CBC & Chem 7: 12/28/16 21:28 12/28/16 21:28 - Impressions ITS Impressions Chest X-Ray 12/29/16 22:47 IMPRESSION: 1. No active pulmonary disease. 2. Cardiomegaly without overt failure. D/ / Javier Mccollum MD / Javier Mccollum MD Interpreting Provider: Javier Mccollum MD
[2016-12-29] MEDS ORDERED: Naloxone 0.4 MG/ML INJ IVP PRN (02:29)
[2016-12-29] MEDS ORDERED: Acetaminophen 325 MG TABLET PO PRN ×2 (02:29→09:37)
[2016-12-29] MEDS ORDERED: Ondansetron 4 MG/2 ML VIAL IVP PRN (02:29)
[2016-12-29] MEDS ORDERED: Dextrose Gel 15 GM PO PRN ×2 (02:33)
[2016-12-29] MEDS ORDERED: *HR* Dextrose 50 % in Water (Syg) 50 ML SYRINGE IVP PRN (02:33)
[2016-12-29] MEDS ORDERED: D5% in Water 1,000 ML IVC PRN (02:33)
[2016-12-29] MEDS ORDERED: Insulin LISPRO 300 UNITS/3 ML VIAL SQ ONE (04:01)
[2016-12-29] MEDS: Metoprolol 100 MG TABLET PO SCH ×3 (04:35→20:14)
[2016-12-29] MEDS: Insulin LISPRO 300 UNITS/3 ML VIAL SQ SCH ×5 (04:35→20:13)
[2016-12-29 07:00] LABS: Basophils # 0.1 K/mcL (0.0-0.2); Basophils % 0.6 %; Eosinophils # 0.2 K/mcL (0.0-0.6); Eosinophils % 2.3 %; Hematocrit 36.9 % (37.5-50.1); Hemoglobin 12.5 g/dL (12.9-16.9); Immature Granulocytes % 0.4 % (0-4); Lymphocytes # 2.3 K/mcL (0.6-4.6); Lymphocytes % 24.3 %; Mean Corpuscular HGB Conc 33.9 g/dL (31.6-35.5); Mean Corpuscular Volume 94.4 fL (83.0-100.0); Mean Platelet Volume 10.1 fL (9.4-12.4); Monocytes # 0.8 K/mcL (0.0-1.3); Monocytes % 8.6 %; Neutrophils # 6.1 K/mcL (1.6-8.9); Platelet Count 182 K/mcL (140-400); Red Blood Count 3.91 M/mcL (4.19-5.50); Red Cell Distribution Width 13.4 % (11.5-14.5); Segmented Neutrophils % 63.8 %
[2016-12-29 07:16] LABS: Albumin 3.3 g/dL (3.5-5.0); Albumin/Globulin Ratio 0.9 (1.1-2.2); Bilirubin,Direct 0.2 mg/dL (0.0-0.5); Bilirubin,Indirect 0.1 mg/dL (0.0-1.2); Bilirubin,Total 0.3 mg/dL (0.2-1.2); Calcium 9.7 mg/dL (8.6-10.8); Globulin 3.5 g/dL (2.4-3.5); Magnesium 1.8 mg/dL (1.6-2.6); Potassium 3.5 mEq/L (3.5-4.5); Total Protein 6.8 g/dL (6.0-8.3)
[2016-12-29 07:36] LABS: Thyroid Stimulating Hormone 3.152 mcIU/mL (0.350-4.840)
[2016-12-29] MEDS ORDERED: hydrALAZINE 25 MG TABLET PO SCH ×2 (08:00→21:00)
[2016-12-29] MEDS ORDERED: Cyanocobalamin (B-12) 1,000 MCG TABLET PO SCH (09:00)
[2016-12-29] MEDS: APIXABAN 2.5 MG TABLET PO SCH ×2 (09:13→20:14)
[2016-12-29] MEDS: cloNIDine HCl 0.1 MG TABLET PO SCH ×3 (09:13→20:14)
[2016-12-29] MEDS ORDERED: Furosemide 240 MG in D5% in Water 96 ML IVC SCH (09:36)
[2016-12-29] MEDS ORDERED: Nitroglycerin 0.4 MG TAB.SUBL SL PRN (09:37)
[2016-12-29 09:58] LABS: Bilirubin,Urine Negative (Negative); Blood,Urine Trace (Negative); Clarity,Urine Cloudy (Clear); Color,Urine Yellow (Yellow); Glucose,Urine (UA) Normal (Normal); Ketones,Urine Negative (Negative); Leukocyte Esterase,Urine Small (Negative); Nitrite,Urine Negative (Negative); PH,Urine 6.5 pH Units (5.0-8.0); Protein,Urine 100 mg/dL (Neg-Trace); Specific Gravity,Urine 1.012 (1.010-1.025); Urobilinogen,Urine Normal (Normal)
[2016-12-29 10:01] LABS: Bacteria,Urine Many per hpf (None-Few); Hyaline Casts,Urine None Seen per lpf (None-Few); RBC,Urine 0-3 per hpf (0-3); Squamous Epithelial Cell,Urine None Seen per lpf (None-Few); WBC,Urine 15-30 per hpf (0-3)
--- NOTE | 2016-12-29 10:48 | ECHO - Doppler Report ---
Echocardiogram Name: Nino Bassett Date of Study: 12/29/2016 Date: 1940 Ht: 66.0 in Medical Record#: [id number] Age: 76 Wt: 165.0 lb Gender: Male BSA: 1.84 Order #: [id number] Location: [facility] Room #: 2A45 Reading Physician: Dre Lopez MD, [facility] Waiter/Waitress Take Out: Agueda Garcia Ordering Physician: Isreal Torres MD Primary Physician: Malik Roberts DO Indications: Congestive heart failure Impressions: Mild LV systolic dysfunction, LVEF 45%. There are regional wall motion abnormalities, see diagram below. Atypical septal motion consistent with prior cardiac surgery. Indeterminate diastolic function due to atrial fibrillation. Normal right ventricular size. Mild RV hypokinesis. A device lead was visualized in the right atrium and right ventricle. Mildly dilated left atrium. Mildly dilated right atrium. Mild tricuspid regurgitation. Mild pulmonary hypertension. Estimated RVSP =38 mmHg. Left Ventricular Wall Motion: Rest Echo Findings The mid inferior, basal inferior and basal inferior lateral carreon were hypokinetic. All other wall segments showed normal motion. Findings: Study Quality * Suboptimal echo windows. ECG Findings * Atrial fibrillation. Left Ventricle * Mild LV systolic dysfunction, LVEF 45%. There are regional wall motion abnormalities, see diagram below. * Atypical septal motion consistent with prior cardiac surgery. * Normal LV chamber size and wall thickness. * Indeterminate diastolic function due to atrial fibrillation. Right Ventricle * Normal right ventricular size. Mild RV hypokinesis. Device lead * A device lead was visualized in the right atrium and right ventricle. Left Atrium * Mildly dilated left atrium. Right Atrium * Mildly dilated right atrium. Aorta * Normally sized aortic root. Pericardium * There is no pericardial effusion present. IVC * The IVC is not dilated. Aortic Valve * Trileaflet aortic valve. * Moderately sclerotic aortic valve leaflets. * No aortic stenosis. * No aortic regurgitation. Mitral Valve * Mild mitral annular calcification * No mitral stenosis. * Trace mitral regurgitation. Tricuspid Valve * Normal tricuspid valve structure. * No tricuspid stenosis. * Mild tricuspid regurgitation. * Mild pulmonary hypertension. Estimated RVSP =38 mmHg. Pulmonic Valve * Pulmonic valve not well visualized. * No pulmonic stenosis. * Trace pulmonic regurgitation. History Hypertension Diabetes Hypercholesteremia History of Smoking Years 60 Packs 1 History of CAD/PTCA Myocardial Infarction Coronary Artery Bypass Graft Congestive Heart Failure Pacer/ICD Implant Measurements: BP: 164/ 64 2D Normal Values RVIDd: 2.80 cm IVSd: 1.00 cm 0.6 - 1.0 cm LVIDd: 4.60 cm 3.7 - 5.6 cm LVPWd: 1.00 cm 0.6 - 1.1 cm LVIDs: 3.50 cm 1.5 - 3.6 cm AO: 2.80 cm < 4.0 cm LA volume: 64 Tricuspid Valve TV Regurg Peak Grad: 33.00mmHg TV Regurg Peak Rafy: 2.88m/sec Updated by Dre Lopez MD, [facility] on 12/29/2016 10:41:30 AM electronically signed on 12/29/2016 10:42:13 AM with status of Final Wall Motion [place]: 1=Normal, 2=Hypokinesis, 3=Akinesis, 4=Dyskinesis, 5=Aneurysmal, 6=Hyperkinetic, X=Not Visualized (Blank)=Missing
[2016-12-29] MEDS ORDERED: Furosemide 40 MG/4 ML VIAL IVP ONE ×2 (11:05→15:29)
[2016-12-29 11:48] LABS: Protein/Creatinine Ratio,Urine 3.81 mg/mg (0-0.20)
[2016-12-29] MEDS ORDERED: Albumin 25% 12.5gm/50mL 12.5 GM/50 ML IV.SOLN IVPB ONE (15:29)
[2016-12-29] MEDS ORDERED: Furosemide 100 MG/10 ML VIAL IVP SCH (17:30)
[2016-12-29] MEDS ORDERED: levoFLOXacin 250 MG TABLET PO SCH (19:00)
[2016-12-29] MEDS ORDERED: Loratadine 10 MG TABLET PO PRN (23:09)
[2016-12-30 05:07] VITALS: BP 158/68
--- NOTE | 2016-12-30 08:36 | Discharge Summary ---
Date of Encounter: 12/30/16 Time of Encounter: 08:34 - Discharge Diagnosis (1) Acute exacerbation of CHF (congestive heart failure) Priority: Primary Status: Acute Qualifiers: Congestive heart failure type: systolic Qualified Code(s): I50.23 - Acute on chronic systolic (congestive) heart failure (2) CKD (chronic kidney disease) Priority: Primary Status: Chronic Qualifiers: Chronic kidney disease stage: stage 4 (severe) Qualified Code(s): N18.4 - Chronic kidney disease, stage 4 (severe) (3) Diabetes mellitus Priority: Secondary Status: Acute Qualifiers: Diabetes mellitus type: type 2 Diabetes mellitus complication status: with kidney complications Diabetes mellitus complication detail: with chronic kidney disease Diabetes mellitus long term care social worker insulin use: without fpc use Chronic kidney disease stage: stage 4 (severe) Qualified Code(s): E11.22 - Type 2 diabetes mellitus with diabetic chronic kidney disease; N18.4 - Chronic kidney disease, stage 4 (severe) (4) HTN (hypertension) Priority: Secondary Status: Chronic Qualifiers: Hypertension type: essential hypertension Qualified Code(s): I10 - Essential (primary) hypertension (5) A-fib Priority: Secondary Status: Chronic Qualifiers: Atrial fibrillation type: chronic Qualified Code(s): I48.2 - Chronic atrial fibrillation (6) CAD (coronary artery disease) Priority: Secondary Status: Chronic Qualifiers: Coronary Disease-Associated Artery/Lesion type: [place] artery [place] vs. transplanted heart: [place] heart Associated angina: angina presence unspecified Qualified Code(s): I25.10 - Atherosclerotic heart disease of [place] coronary artery without angina pectoris (7) Protein malnutrition Priority: Secondary Status: Chronic - Discharge Medications Home Medications: Amlodipine Besylate 10 mg PO DAILY 10/07/16 [History] CloNIDine HCl 0.1 mg PO TID 10/07/16 [History] Glimepiride [Amaryl] 4 mg PO BID 10/07/16 [History] Insulin Glargine,Hum.rec.anlog [Lantus Solostar] 10 unit SQ DAILY 10/07/16 [ History] Lisinopril [Zestril] 40 mg PO DAILY 10/07/16 [History] Lovastatin [Mevacor] 20 mg PO HS 10/07/16 [History] Acetaminophen [Tylenol] 650 mg PO Q6HR PRN #60 tablet 10/08/16 [Rx] Cyanocobalamin (B-12) [Vitamin B12] 1,000 mcg PO DAILY #90 tablet 10/08/16 [Rx] Ergocalciferol (VITAMIN D2) [Vitamin D2] 50,000 unit PO QWEEK #10 capsule [Rx] Metoprolol [Lopressor] 100 mg PO BID 10/08/16 [History] Nitroglycerin 0.4 mg SL Q5MIN PRN #30 tab.subl 10/08/16 [Rx] Thiamine HCl 250 mg PO DAILY #90 tablet 10/08/16 [Rx] Albuterol Sulfate [Albuterol Inhaler] 2 puff IH Q4HR PRN 12/28/16 [History] Apixaban [Eliquis] 2.5 mg PO BID 12/28/16 [History] Furosemide [Lasix] 80 mg PO BID 12/28/16 [History] HydrALAZINE 25 mg PO BID 12/28/16 [History] Omeprazole [PriLOSEC] 20 mg PO DAILY 12/28/16 [History] Allergies/Adverse Reactions: Allergies No Known Allergies Allergy (Verified 12/28/16 19:49) Procedures/tests Complete & Pending: Procedures Performed prior 72 hours Category Date Time Status EV echocardiogram Routine Y 12/29/16 02:33 Completed Date of admission: 12/29/16 00:46 Primary care physician: Malik Roberts Consults: 12/29/16 02:29 Consult to Nurse Navigator [CONS] Routine Comment: Discharging clinician: Alvin Medina Anticipated date of discharge: 12/30/16 - Patient Status Disposition: Left Against Medical Advice Condition: Fair Functional capacity at discharge: independent ambulation Overall status at discharge: patient is progressing back to baseline - Discharge Instructions Follow Up With: Malik Roberts DO [Primary Care Provider] - - Diet and Activity Activity: increase activity as tolerated Diet: advance to your usual diet Hospital course: Mr. Bassett is a 76 year old male with hx CKD 4 and systolic CHF presented to ED due to increased swelling. He was placed in observation. Mr Bassett was placed on observation on med tele. He originally received IV Lasix in ED and had little results. He was very upset that he did not have more frequent Lasix to increase output (despite worsening renal failure). He said she sees gastroenterology manager at [facility] and is being prepped for dialysis. After long discussion yesterday he was given IV albumin and Lasix. Today his weight is down 3.5kg and he was negative fluid balance. He was at the nurse's station dressed insisting on leaving at 0830 (while staff was dealing with another emergency on the floor). At that point in time he left AMA. He needs no new prescriptions and can follow up with his usual physicians. - Time Spent with Patient Total time spent providing and/or coordinating discharge services: - Constitutional Vitals: Temp Pulse Resp BP Pulse Ox 97.7 F 56 17 158/68 95 12/30/16 05:06 12/30/16 05:06 12/30/16 05:06 12/30/16 05:06 12/30/16 05:06 General appearance: Present: cooperative, A&O X 3, no acute distress - Head Head exam: Present: normocephalic - Eye Eye exam: Present: conjuntiva pink - Neurological Exam Neurological exam: Present: alert, oriented X3
[2016-12-30] MEDS ORDERED: Thiamine (B-1) 100 MG TABLET PO SCH (09:00)
[2016-12-30] MEDS ORDERED: Insulin DETEMIR 100 UNIT/ML X5UNITS SQ SCH (09:00)
--- NOTE | 2016-12-30 21:36 | Electrocardiograph Report ---
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
== END 2016-12-30 09:38 | disposition left against medical advice (07) ==
LOC: EMEROO 19:36 → 2ANU 19:36
PROVIDERS: ADMIT Internal Medicine; ATTEND Internal Medicine

== ENCOUNTER 2017-07-16 00:45 | Observation (INO) ==
[2017-07-16 01:12] LABS: Basophils % 0.5 %; Eosinophils # 0.1 K/mcL (0.0-0.6); Eosinophils % 2.1 %; Hematocrit 31.5 % (37.5-50.1); Hemoglobin 10.8 g/dL (12.9-16.9); Immature Granulocytes % 0.3 % (0-4); Lymphocytes # 1.7 K/mcL (0.6-4.6); Lymphocytes % 28.3 %; Mean Corpuscular HGB Conc 34.3 g/dL (31.6-35.5); Mean Corpuscular Hemoglobin 32.6 pg (28.0-33.3); Mean Corpuscular Volume 95.2 fL (83.0-100.0); Mean Platelet Volume 9.2 fL (9.4-12.4); Monocytes # 0.5 K/mcL (0.0-1.3); Monocytes % 8.5 %; Neutrophils # 3.7 K/mcL (1.6-8.9); Platelet Count 147 K/mcL (140-400); Red Blood Count 3.31 M/mcL (4.19-5.50); Segmented Neutrophils % 60.3 %
[2017-07-16 01:24] LABS: Bilirubin,Urine Negative (Negative); Blood,Urine Negative (Negative); Clarity,Urine Cloudy (Clear); Color,Urine Yellow (Yellow); Glucose,Urine (UA) Normal (Normal); Ketones,Urine Negative (Negative); Leukocyte Esterase,Urine Negative (Negative); Nitrite,Urine Negative (Negative); Protein,Urine 100 mg/dL (Neg-Trace); Specific Gravity,Urine 1.017 (1.010-1.025); Urobilinogen,Urine Normal (Normal)
[2017-07-16 01:26] LABS: Albumin 3.6 g/dL (3.5-5.0); Albumin/Globulin Ratio 0.9 (1.1-2.2); Bilirubin,Direct 0.1 mg/dL (0.0-0.5); Bilirubin,Indirect 0.3 mg/dL (0.0-1.2); Bilirubin,Total 0.4 mg/dL (0.2-1.2); Calcium 9.3 mg/dL (8.6-10.8); Globulin 3.8 g/dL (2.4-3.5); Potassium 4.2 mEq/L (3.5-4.5); Total Protein 7.4 g/dL (6.0-8.3)
[2017-07-16 01:35] LABS: Bacteria,Urine Moderate per hpf (None-Few); Squamous Epithelial Cell,Urine Moderate per lpf (None-Few)
--- NOTE | 2017-07-16 02:50 | Emergency Department Note ---
Disposition Clinical Impression: Diarrhea Qualifiers: Diarrhea type: unspecified type Qualified Code(s): R19.7 - Diarrhea, unspecified GI bleed Qualifiers: GI bleed type/associated pathology: unspecified gastrointestinal hemorrhage type Qualified Code(s): K92.2 - Gastrointestinal hemorrhage, unspecified Disposition: Admitted As Inpatient Condition: Fair Referrals: Malik Roberts DO [Primary Care Provider] - Forms: ED Satisfaction Letter, Work/School Release Time of Disposition: 05:28 Abdominal Pain HPI - General Chief Complaint: ED Abdominal Pain Stated Complaint: Constipation x1 wk Time Seen by Provider: 07/16/17 02:17 Source: patient Mode of arrival: private vehicle Limitations: no limitations Nursing Notes Reviewed: Yes Vital Signs Reviewed: Yes - History of Present Illness Pt Subjective Complaint: other (black stool) Onset (ago): day(s) (4) Consistency: intermittent Location: diffuse Pain Severity: none Pain Scale: 0 Quality: cramping Radiation: none Migration to: no migration Improves with: nothing Worsens with: nothing Context: other (on Eliquis, had urinary retention last week; went to [facility] and had a catheter placed. The next day he had several episodes of diarrhea which were black and. ) - Related Data Home Medications Medication Instructions Recorded Confirmed Amlodipine Besylate 10 mg PO DAILY 10/07/16 12/28/16 Glimepiride [Amaryl] 4 mg PO BID 10/07/16 12/28/16 Insulin Glargine,Hum.rec.anlog 10 unit SQ DAILY 10/07/16 12/28/16 [Lantus Solostar] Lisinopril [Zestril] 40 mg PO DAILY 10/07/16 12/28/16 Lovastatin [Mevacor] 20 mg PO HS 10/07/16 12/28/16 cloNIDine HCl [CloNIDine HCl] 0.1 mg PO TID 10/07/16 12/28/16 Metoprolol [Lopressor] 100 mg PO BID 10/08/16 12/28/16 Albuterol Sulfate [Albuterol 2 puff IH Q4HR PRN 12/28/16 12/28/16 Inhaler] Apixaban [Eliquis] 2.5 mg PO BID 12/28/16 12/28/16 Furosemide [Lasix] 80 mg PO BID 12/28/16 12/28/16 Omeprazole [PriLOSEC] 20 mg PO DAILY 12/28/16 12/28/16 hydrALAZINE [HydrALAZINE] 25 mg PO BID 12/28/16 12/28/16 Previous Rx's Medication Instructions Recorded Acetaminophen [Tylenol] 650 mg PO Q6HR PRN #60 tablet 10/08/16 Cyanocobalamin (B-12) [Vitamin B12] 1,000 mcg PO DAILY #90 tablet 10/08/16 Ergocalciferol (VITAMIN D2) 50,000 unit PO QWEEK #10 capsule 10/08/16 [Vitamin D2] Nitroglycerin 0.4 mg SL Q5MIN PRN #30 tab.subl 10/08/16 Thiamine HCl 250 mg PO DAILY #90 tablet 10/08/16 Allergies Allergy/AdvReac Type Severity Reaction Status Date / Time No Known Allergies Allergy Verified 12/28/16 19:49 Abdominal Pain PMH - Past Medical History Medical history: Reports: coronary artery disease, diabetes, hyperlipidemia, hypertension, myocardial infarction Male Surgical History: Reports: angioplasty/stent, coronary bypass (CABG) Psychiatric history: Reports: no psych history - Social History Smoking status: Current every day smoker Alcohol use: Reports: none Drug use: Reports: none Physical Exam - General Limitations: no limitations General appearance: alert, in no apparent distress - Head Head exam: atraumatic, normocephalic, normal inspection - Eye Eye exam: Present: normal appearance, PERRL. Absent: scleral icterus, conjunctival injection, periorbital swelling - ENT ENT exam: normal exam, normal oropharynx, mucous membranes moist - Neck Neck exam: Present: normal inspection, full ROM, trachea midline - Chest Chest inspection: Present: normal inspection - Respiratory Respiratory exam: Present: normal lung sounds bilaterally. Absent: respiratory distress - Cardiovascular Cardiovascular exam: Present: regular rate, normal rhythm - Abdominal Exam Abdominal exam: Present: soft, Non-Tender, hyperactive bowel sounds. Absent: distention, guarding, rebound, rigidity, organomegaly, Phelps's sign, tenderness at McBurney's Point, mass, pulsatile mass - Rectal Exam Patient Care Secretary present during exam: Yes (CASIE Fregoso) Rectal exam: Present: normal rectal tone, other (dark stool - sent to lab for occult blood testing) - Extremities Exam Extremities exam: Present: normal inspection, full ROM, normal capillary refill. Absent: pedal edema, calf tenderness - Expanded Lower Extremity Exam Neurovascular/Tendon exam: Present: normal capillary refill. Absent: pulse deficit, motor deficit, sensory deficit, extremity cold to touch, pallor Gait: observed and normal - Back Exam Back exam: Present: normal inspection - Neurological Exam Neurological exam: Present: alert, oriented X3, CN II-XII intact, normal gait - Psychiatric Psychiatric exam: Present: normal affect, normal mood - Skin Skin exam: Present: warm, dry, intact, normal color Course Course Narrative: Patient presents for evaluation of "black stool". He states that last week he had an episode of urinary retention, so he went to [facility]. A James catheter was placed to drain the bladder. The catheter was then removed and he was discharged to home. The next morning he had several loose bowel movements that were dark in color. This was concerning to him. However, he did not seek treatment at that time. He had no additional bowel movements until yesterday when he passed a very small amount of stool. It was solid and also black. This morning he did not have any additional bowel movements and was concerned about this, so he came in for evaluation. He denies lightheadedness, dizziness , vertigo, syncope, fever, chills, nausea or vomiting. He denies abdominal pain or distention, extremity weakness, numbness or tingling. On rectal exam he has dark colored stool. It is solid. This was sent to the lab for occult blood testing and was found to be negative. Patient had a CT of the abdomen and pelvis done. This was read by the radiologist as no acute abdominal or pelvic abnormality. Cholelithiasis without acute abnormality. Aortoiliac plaque causing stenosis which may be hemodynamically significant. Patient has no complaints of paresthesias or discoloration of the extremities. He is ambulatory without assistance. He has 2+ DP and PT pulses in the feet bilaterally. Repeat abdominal exam is still benign. He has no tenderness to palpation. Since the rectal exam, he has had three episodes of watery brown stool. He was able to provide a sample to send to the lab. A GI panel has been ordered. The patient has stable normal vitals with no abdominal pain and no abdominal tenderness. No acute abnormalities seen on the CT, no occult blood in the stool , no sign of, extremity ischemia. He is stable for outpatient follow-up with GI. The case was discussed with Dr. ARMENDARIZ. He has had [id number] him with the patient and agrees with the assessment and plan Prior to discharge, the GI panel results became available. This sample of stool is positive for occult blood. This is unusual as the previous sample was obtained just prior to the episode of diarrhea. The hospitalist was contacted for admission. Patient was accepted. No additional medications or orders were requested. This new plan was discussed with Dr. Armendariz. He agrees with the plan Vital Signs Temperature 98.0 F 07/16/17 00:47 Pulse Rate 64 07/16/17 00:47 Respiratory Rate 20 07/16/17 00:47 Blood Pressure 169/66 07/16/17 00:47 O2 Sat by Pulse Oximetry 100 07/16/17 00:47 Temperature 98.0 F 07/16/17 00:47 Pulse Rate 53 07/16/17 06:39 Respiratory Rate 20 07/16/17 06:39 Blood Pressure 156/70 07/16/17 06:39 O2 Sat by Pulse Oximetry 99 07/16/17 06:39 Oxygen Delivery Oxygen Delivery Room Air Abdominal Pain - Lab Data Result diagrams: 07/16/17 01:04 07/16/17 01:04 Lab Results 07/16/17 07/16/17 07/16/17 Range/Units 01:04 01:04 01:16 WBC 6.1 (4.3-11.1) K/mcL RBC 3.31 L (4.19-5.50) M/mcL Hgb 10.8 L (12.9-16.9) g/dL Hct 31.5 L (37.5-50.1) % MCV 95.2 (83.0-100.0) fL MCH 32.6 (28.0-33.3) pg MCHC 34.3 (31.6-35.5) g/dL RDW 15.0 H (11.5-14.5) % Plt Count 147 (140-400) K/mcL MPV 9.2 L (9.4-12.4) fL Immature Gran % 0.3 (0-4) % Seg Neutrophils % 60.3 % Lymphocytes % 28.3 % Monocytes % 8.5 % Eosinophils % 2.1 % Basophils % 0.5 % Neutrophils # 3.7 (1.6-8.9) K/mcL Lymphocytes # 1.7 (0.6-4.6) K/mcL Monocytes # 0.5 (0.0-1.3) K/mcL Eosinophils # 0.1 (0.0-0.6) K/mcL Basophils # 0.0 (0.0-0.2) K/mcL Sodium 138 (136-145) mEq/L Potassium 4.2 (3.5-4.5) mEq/L Chloride 98 (98-109) mEq/L Carbon Dioxide 28 (19-29) mEq/L BUN 40 H (8-26) mg/dL Creatinine 2.74 H (0.72-1.25) mg/dL Est GFR ( Amer) 27 L (> 60) Est GFR (Non-Af Amer) 23 L (> 60) BUN/Creatinine Ratio 15 (6-26) Glucose 102 H (70-99) mg/dL Calculated Osmolality 296 (280-300) Calcium 9.3 (8.6-10.8) mg/dL Total Bilirubin 0.4 (0.2-1.2) mg/dL Direct Bilirubin 0.1 (0.0-0.5) mg/dL Indirect Bilirubin 0.3 (0.0-1.2) mg/dL AST 26 (5-34) Units/L ALT 25 (0-55) Units/L Alkaline Phosphatase 106 (38-126) Units/L Serum Total Protein 7.4 (6.0-8.3) g/dL Albumin 3.6 (3.5-5.0) g/dL Globulin 3.8 H (2.4-3.5) g/dL Albumin/Globulin Ratio 0.9 L (1.1-2.2) Lipase 72 (8-78) Units/L Urine Color Yellow (Yellow) Urine Clarity Cloudy A (Clear) Urine pH 6.0 (5.0-8.0) pH Units Ur Specific [place] 1.017 (1.010-1.025) Urine Protein 100 H (Neg-Trace) mg/dL Urine Glucose (UA) Normal (Normal) mg/dL Urine Ketones Negative (Negative) mg/dL Urine Blood Negative (Negative) Urine Nitrite Negative (Negative) Urine Bilirubin Negative (Negative) Urine Urobilinogen Normal (Normal) mg/dL Ur Leukocyte Esterase Negative (Negative) Urine Microscopic RBC 5-15 H (0-3) per hpf Urine Microscopic WBC 3-5 H (0-3) per hpf Ur Squamous Epith Cells Moderate H (None-Few) per lpf Urine Bacteria Moderate H (None-Few) per hpf Ur Culture Indicated? NO (NO) Stool Occult Blood (Negative) Stl C. cayetanensis PCR (Not detect) Stool Rotavirus A PCR (Not detect) Stl Adenov F 40/41 PCR (Not detect) Stool Astrovirus (PCR) (Not detect) Stool Campylobacter PCR (Not detect) Stl C. diff Tox A/B PCR (Not detect) Stool Cryptosporidium PCR (Not detect) Stl Sh Tox Pr E STEC PCR (Not detect) Stool E coli O157 PCR (Not detect) Stl Enterotoxigenic E PCR (Not detect) Stool EPEC (PCR) (Not detect) Stool EAEC (PCR) (Not detect) Stl E. histolytica PCR (Not detect) Stool Giardia Lamblia PCR (Not detect) Stool Salmonella PCR (Not detect) Stool Sapovirus (PCR) (Not detect) Stl P. shigelloides PCR (Not detect) Stl Shigella/EIEC PCR (Not detect) St Y.enterocolitica PCR (Not detect) Stool Vibrio (PCR) (Not detect) Stl Vibrio cholerae PCR (Not detect) Stl Norovirus GI/GII PCR (Not detect) Stl GI Panel (PCR) Com Blood Type Antibody Screen 07/16/17 07/16/17 07/16/17 Range/Units 03:11 03:58 05:10 WBC (4.3-11.1) K/mcL RBC (4.19-5.50) M/mcL Hgb (12.9-16.9) g/dL Hct (37.5-50.1) % MCV (83.0-100.0) fL MCH (28.0-33.3) pg MCHC (31.6-35.5) g/dL RDW (11.5-14.5) % Plt Count (140-400) K/mcL MPV (9.4-12.4) fL Immature Gran % (0-4) % Seg Neutrophils % % Lymphocytes % % Monocytes % % Eosinophils % % Basophils % % Neutrophils # (1.6-8.9) K/mcL Lymphocytes # (0.6-4.6) K/mcL Monocytes # (0.0-1.3) K/mcL Eosinophils # (0.0-0.6) K/mcL Basophils # (0.0-0.2) K/mcL Sodium (136-145) mEq/L Potassium (3.5-4.5) mEq/L Chloride (98-109) mEq/L Carbon Dioxide (19-29) mEq/L BUN (8-26) mg/dL Creatinine (0.72-1.25) mg/dL Est GFR ( Amer) (> 60) Est GFR (Non-Af Amer) (> 60) BUN/Creatinine Ratio (6-26) Glucose (70-99) mg/dL Calculated Osmolality (280-300) Calcium (8.6-10.8) mg/dL Total Bilirubin (0.2-1.2) mg/dL Direct Bilirubin (0.0-0.5) mg/dL Indirect Bilirubin (0.0-1.2) mg/dL AST (5-34) Units/L ALT (0-55) Units/L Alkaline Phosphatase (38-126) Units/L Serum Total Protein (6.0-8.3) g/dL Albumin (3.5-5.0) g/dL Globulin (2.4-3.5) g/dL Albumin/Globulin Ratio (1.1-2.2) Lipase (8-78) Units/L Urine Color (Yellow) Urine Clarity (Clear) Urine pH (5.0-8.0) pH Units Ur Specific [place] (1.010-1.025) Urine Protein (Neg-Trace) mg/dL Urine Glucose (UA) (Normal) mg/dL Urine Ketones (Negative) mg/dL Urine Blood (Negative) Urine Nitrite (Negative) Urine Bilirubin (Negative) Urine Urobilinogen (Normal) mg/dL Ur Leukocyte Esterase (Negative) Urine Microscopic RBC (0-3) per hpf Urine Microscopic WBC (0-3) per hpf Ur Squamous Epith Cells (None-Few) per lpf Urine Bacteria (None-Few) per hpf Ur Culture Indicated? (NO) Stool Occult Blood Positive A (Negative) Stl C. cayetanensis PCR Not detected (Not detect) Stool Rotavirus A PCR Not detected (Not detect) Stl Adenov F 40/41 PCR Not detected (Not detect) Stool Astrovirus (PCR) Not detected (Not detect) Stool Campylobacter PCR Not detected (Not detect) Stl C. diff Tox A/B PCR Not detected (Not detect) Stool Cryptosporidium PCR Not detected (Not detect) Stl Sh Tox Pr E STEC PCR Not detected (Not detect) Stool E coli O157 PCR Not detected (Not detect) Stl Enterotoxigenic E PCR Not detected (Not detect) Stool EPEC (PCR) Not detected (Not detect) Stool EAEC (PCR) Not detected (Not detect) Stl E. histolytica PCR Not detected (Not detect) Stool Giardia Lamblia PCR Not detected (Not detect) Stool Salmonella PCR Not detected (Not detect) Stool Sapovirus (PCR) Not detected (Not detect) Stl P. shigelloides PCR Not detected (Not detect) Stl Shigella/EIEC PCR Not detected (Not detect) St Y.enterocolitica PCR Not detected (Not detect) Stool Vibrio (PCR) Not detected (Not detect) Stl Vibrio cholerae PCR Not detected (Not detect) Stl Norovirus GI/GII PCR Not detected (Not detect) Stl GI Panel (PCR) Com See below Blood Type A POSITIVE Antibody Screen NEGATIVE Attestation Statement - Attestation Attestation: I, Chester Armendariz, examined this patient and my medical decision-making was reviewed with the DIRECTOR OF NATIONAL SALES/PA/Advanced Practice Nurse/Resident Physician. I agree with the documented findings, disposition and treatment plan as described except to the extent set forth below. 77-year-old male presents with concerns of increasing weakness and multiple episodes of dark stool. Patient denies recent trauma. He takes Eliquis. Patient has a decreased hemoglobin compared to his baseline. Initial occults testing of his stool was negative for blood however stool sample was sent down for further evaluation which returned positive for occult blood. Patient will be admitted to the hospital for further care and evaluation.
--- NOTE | 2017-07-16 06:38 | Emergency Department Note ---
Disposition Clinical Impression: Diarrhea Qualifiers: Diarrhea type: unspecified type Qualified Code(s): R19.7 - Diarrhea, unspecified GI bleed Qualifiers: GI bleed type/associated pathology: unspecified gastrointestinal hemorrhage type Qualified Code(s): K92.2 - Gastrointestinal hemorrhage, unspecified Disposition: Admitted As Inpatient Condition: Fair Time of Disposition: 06:39 Abdominal Pain HPI - General Chief Complaint: ED Abdominal Pain Stated Complaint: Constipation x1 wk Time Seen by Provider: 07/16/17 02:17 Source: patient Mode of arrival: private vehicle - History of Present Illness Pt Subjective Complaint: other (black stool) Location: diffuse Pain Severity: none Pain Scale: 0 Quality: cramping Migration to: no migration Improves with: nothing Worsens with: nothing Context: other (on Eliquis, had urinary retention last week; went to [facility] and had a catheter placed. The next day he had several episodes of diarrhea which were black and. ) - Related Data Home Medications Medication Instructions Recorded Confirmed Amlodipine Besylate 10 mg PO DAILY 10/07/16 07/16/17 Glimepiride [Amaryl] 4 mg PO BID 10/07/16 07/16/17 Insulin Glargine,Hum.rec.anlog 10 unit SQ DAILY 10/07/16 07/16/17 [Lantus Solostar] Lisinopril [Zestril] 40 mg PO DAILY 10/07/16 07/16/17 Lovastatin [Mevacor] 20 mg PO HS 10/07/16 07/16/17 cloNIDine HCl [CloNIDine HCl] 0.1 mg PO TID 10/07/16 07/16/17 Metoprolol [Lopressor] 100 mg PO BID 10/08/16 07/16/17 Albuterol Sulfate [Albuterol 2 puff IH Q4HR PRN 12/28/16 07/16/17 Inhaler] Apixaban [Eliquis] 2.5 mg PO BID 12/28/16 07/16/17 Furosemide [Lasix] 80 mg PO TID 12/28/16 07/16/17 Omeprazole [PriLOSEC] 20 mg PO DAILY 12/28/16 07/16/17 hydrALAZINE [HydrALAZINE] 25 mg PO BID 12/28/16 07/16/17 Mirtazapine [Remeron] 15 mg PO HS 07/16/17 07/16/17 Previous Rx's Medication Instructions Recorded Acetaminophen [Tylenol] 650 mg PO Q6HR PRN #60 tablet 10/08/16 Cyanocobalamin (B-12) [Vitamin B12] 1,000 mcg PO DAILY #90 tablet 10/08/16 Ergocalciferol (VITAMIN D2) 50,000 unit PO QWEEK #10 capsule 10/08/16 [Vitamin D2] Nitroglycerin 0.4 mg SL Q5MIN PRN #30 tab.subl 10/08/16 Thiamine HCl 250 mg PO DAILY #90 tablet 10/08/16 Allergies Allergy/AdvReac Type Severity Reaction Status Date / Time No Known Allergies Allergy Verified 12/28/16 19:49 Abdominal Pain PMH - Past Medical History Medical history: Reports: coronary artery disease, diabetes, hyperlipidemia, hypertension, myocardial infarction Male Surgical History: Reports: angioplasty/stent, coronary bypass (CABG) Psychiatric history: Reports: no psych history - Social History Smoking status: Current every day smoker Alcohol use: Reports: none Drug use: Reports: none Physical Exam - General Limitations: no limitations General appearance: alert, in no apparent distress Course Course Narrative: 0600: I have assumed care of this patient from Gregoria Roberts PA-C due to mid- level shift change. Please see Gregoria's documentation for any care performed prior to my arrival. Briefly, this is a alert and oriented pleasant 77-year- old male who presented for evaluation of constipation and "black stool". Bedside guaiac stool was negative however the patient subsequently had 3 episodes of dark colored loose stool. A sample was sent to the lab, and found to be guaiac positive. He is on Eliquis, and for this reason, we will admit to the hospitalist service for further evaluation. 0635: I spoke with Dr. Cole of the hospitalist service, who has accepted the patient for admission to his service. 0720: The patient was concerned because he has a 2:[address] Maki regarding lower extremity edema. I spoke with Dr. Maki, he states that he will likely not see the patient in the hospital unless there is an acute issue that arises. He requests that he be notified by the hospitalist should such an instance occur. Vital Signs Temperature 98.0 F 07/16/17 00:47 Pulse Rate 64 07/16/17 00:47 Respiratory Rate 20 07/16/17 00:47 Blood Pressure 169/66 07/16/17 00:47 O2 Sat by Pulse Oximetry 100 07/16/17 00:47 Temperature 98.0 F 07/16/17 00:47 Pulse Rate 53 07/16/17 06:39 Respiratory Rate 20 07/16/17 07:04 Blood Pressure 156/72 07/16/17 07:04 O2 Sat by Pulse Oximetry 99 07/16/17 06:39 Oxygen Delivery Oxygen Delivery Room Air Abdominal Pain - Medical Records Medical records reviewed: Yes I reviewed the patient's medical records. - Lab Data Lab results reviewed: Yes I reviewed the patient's lab results. Lab results narrative: Laboratory Last Values WBC 6.1 K/mcL (4.3-11.1) 07/16/17 01:04 RBC 3.31 M/mcL (4.19-5.50) L 07/16/17 01:04 Hgb 10.8 g/dL (12.9-16.9) L 07/16/17 01:04 Hct 31.5 % (37.5-50.1) L 07/16/17 01:04 MCV 95.2 fL (83.0-100.0) 07/16/17 01:04 MCH 32.6 pg (28.0-33.3) 07/16/17 01:04 MCHC 34.3 g/dL (31.6-35.5) 07/16/17 01:04 RDW 15.0 % (11.5-14.5) H 07/16/17 01:04 Plt Count 147 K/mcL (140-400) 07/16/17 01:04 MPV 9.2 fL (9.4-12.4) L 07/16/17 01:04 Immature Gran % 0.3 % (0-4) 07/16/17 01:04 Seg Neutrophils % 60.3 % 07/16/17 01:04 Lymphocytes % 28.3 % 07/16/17 01:04 Monocytes % 8.5 % 07/16/17 01:04 Eosinophils % 2.1 % 07/16/17 01:04 Basophils % 0.5 % 07/16/17 01:04 Neutrophils # 3.7 K/mcL (1.6-8.9) 07/16/17 01:04 Lymphocytes # 1.7 K/mcL (0.6-4.6) 07/16/17 01:04 Monocytes # 0.5 K/mcL (0.0-1.3) 07/16/17 01:04 Eosinophils # 0.1 K/mcL (0.0-0.6) 07/16/17 01:04 Basophils # 0.0 K/mcL (0.0-0.2) 07/16/17 01:04 Sodium 138 mEq/L (136-145) 07/16/17 01:04 Potassium 4.2 mEq/L (3.5-4.5) 07/16/17 01:04 Chloride 98 mEq/L (98-109) 07/16/17 01:04 Carbon Dioxide 28 mEq/L (19-29) 07/16/17 01:04 BUN 40 mg/dL (8-26) H 07/16/17 01:04 Creatinine 2.74 mg/dL (0.72-1.25) H 07/16/17 01:04 Est GFR ( Amer) 27 (> 60) L 07/16/17 01:04 Est GFR (Non-Af Amer) 23 (> 60) L 07/16/17 01:04 BUN/Creatinine Ratio 15 (6-26) 07/16/17 01:04 Glucose 102 mg/dL (70-99) H 07/16/17 01:04 Calculated Osmolality 296 (280-300) 07/16/17 01:04 Calcium 9.3 mg/dL (8.6-10.8) 07/16/17 01:04 Total Bilirubin 0.4 mg/dL (0.2-1.2) 07/16/17 01:04 Direct Bilirubin 0.1 mg/dL (0.0-0.5) 07/16/17 01:04 Indirect Bilirubin 0.3 mg/dL (0.0-1.2) 07/16/17 01:04 AST 26 Units/L (5-34) 07/16/17 01:04 ALT 25 Units/L (0-55) 07/16/17 01:04 Alkaline Phosphatase 106 Units/L (38-126) 07/16/17 01:04 Serum Total Protein 7.4 g/dL (6.0-8.3) 07/16/17 01:04 Albumin 3.6 g/dL (3.5-5.0) 07/16/17 01:04 Globulin 3.8 g/dL (2.4-3.5) H 07/16/17 01:04 Albumin/Globulin Ratio 0.9 (1.1-2.2) L 07/16/17 01:04 Lipase 72 Units/L (8-78) 07/16/17 01:04 Urine Color Yellow (Yellow) 07/16/17 01:16 Urine Clarity Cloudy (Clear) A 07/16/17 01:16 Urine pH 6.0 pH Units (5.0-8.0) 07/16/17 01:16 Ur Specific [place] 1.017 (1.010-1.025) 07/16/17 01:16 Urine Protein 100 mg/dL (Neg-Trace) H 07/16/17 01:16 Urine Glucose (UA) Normal mg/dL (Normal) 07/16/17 01:16 Urine Ketones Negative mg/dL (Negative) 07/16/17 01:16 Urine Blood Negative (Negative) 07/16/17 01:16 Urine Nitrite Negative (Negative) 07/16/17 01:16 Urine Bilirubin Negative (Negative) 07/16/17 01:16 Urine Urobilinogen Normal mg/dL (Normal) 07/16/17 01:16 Ur Leukocyte Esterase Negative (Negative) 07/16/17 01:16 Urine Microscopic RBC 5-15 per hpf (0-3) H 07/16/17 01:16 Urine Microscopic WBC 3-5 per hpf (0-3) H 07/16/17 01:16 Ur Squamous Epith Cells Moderate per lpf (None-Few) H 07/16/17 01:16 Urine Bacteria Moderate per hpf (None-Few) H 07/16/17 01:16 Ur Culture Indicated? NO (NO) 07/16/17 01:16 Stool Occult Blood Positive (Negative) A 07/16/17 03:58 Blood Type A POSITIVE 07/16/17 03:11 Antibody Screen NEGATIVE 07/16/17 03:11 Result diagrams: 07/16/17 01:04 07/16/17 01:04 Lab Results 07/16/17 07/16/17 07/16/17 Range/Units 01:04 01:04 01:16 WBC 6.1 (4.3-11.1) K/mcL RBC 3.31 L (4.19-5.50) M/mcL Hgb 10.8 L (12.9-16.9) g/dL Hct 31.5 L (37.5-50.1) % MCV 95.2 (83.0-100.0) fL MCH 32.6 (28.0-33.3) pg MCHC 34.3 (31.6-35.5) g/dL RDW 15.0 H (11.5-14.5) % Plt Count 147 (140-400) K/mcL MPV 9.2 L (9.4-12.4) fL Immature Gran % 0.3 (0-4) % Seg Neutrophils % 60.3 % Lymphocytes % 28.3 % Monocytes % 8.5 % Eosinophils % 2.1 % Basophils % 0.5 % Neutrophils # 3.7 (1.6-8.9) K/mcL Lymphocytes # 1.7 (0.6-4.6) K/mcL Monocytes # 0.5 (0.0-1.3) K/mcL Eosinophils # 0.1 (0.0-0.6) K/mcL Basophils # 0.0 (0.0-0.2) K/mcL Sodium 138 (136-145) mEq/L Potassium 4.2 (3.5-4.5) mEq/L Chloride 98 (98-109) mEq/L Carbon Dioxide 28 (19-29) mEq/L BUN 40 H (8-26) mg/dL Creatinine 2.74 H (0.72-1.25) mg/dL Est GFR ( Amer) 27 L (> 60) Est GFR (Non-Af Amer) 23 L (> 60) BUN/Creatinine Ratio 15 (6-26) Glucose 102 H (70-99) mg/dL Calculated Osmolality 296 (280-300) Calcium 9.3 (8.6-10.8) mg/dL Total Bilirubin 0.4 (0.2-1.2) mg/dL Direct Bilirubin 0.1 (0.0-0.5) mg/dL Indirect Bilirubin 0.3 (0.0-1.2) mg/dL AST 26 (5-34) Units/L ALT 25 (0-55) Units/L Alkaline Phosphatase 106 (38-126) Units/L Serum Total Protein 7.4 (6.0-8.3) g/dL Albumin 3.6 (3.5-5.0) g/dL Globulin 3.8 H (2.4-3.5) g/dL Albumin/Globulin Ratio 0.9 L (1.1-2.2) Lipase 72 (8-78) Units/L Urine Color Yellow (Yellow) Urine Clarity Cloudy A (Clear) Urine pH 6.0 (5.0-8.0) pH Units Ur Specific [place] 1.017 (1.010-1.025) Urine Protein 100 H (Neg-Trace) mg/dL Urine Glucose (UA) Normal (Normal) mg/dL Urine Ketones Negative (Negative) mg/dL Urine Blood Negative (Negative) Urine Nitrite Negative (Negative) Urine Bilirubin Negative (Negative) Urine Urobilinogen Normal (Normal) mg/dL Ur Leukocyte Esterase Negative (Negative) Urine Microscopic RBC 5-15 H (0-3) per hpf Urine Microscopic WBC 3-5 H (0-3) per hpf Ur Squamous Epith Cells Moderate H (None-Few) per lpf Urine Bacteria Moderate H (None-Few) per hpf Ur Culture Indicated? NO (NO) Stool Occult Blood (Negative) Stl C. cayetanensis PCR (Not detect) Stool Rotavirus A PCR (Not detect) Stl Adenov F 40/41 PCR (Not detect) Stool Astrovirus (PCR) (Not detect) Stool Campylobacter PCR (Not detect) Stl C. diff Tox A/B PCR (Not detect) Stool Cryptosporidium PCR (Not detect) Stl Sh Tox Pr E STEC PCR (Not detect) Stool E coli O157 PCR (Not detect) Stl Enterotoxigenic E PCR (Not detect) Stool EPEC (PCR) (Not detect) Stool EAEC (PCR) (Not detect) Stl E. histolytica PCR (Not detect) Stool Giardia Lamblia PCR (Not detect) Stool Salmonella PCR (Not detect) Stool Sapovirus (PCR) (Not detect) Stl P. shigelloides PCR (Not detect) Stl Shigella/EIEC PCR (Not detect) St Y.enterocolitica PCR (Not detect) Stool Vibrio (PCR) (Not detect) Stl Vibrio cholerae PCR (Not detect) Stl Norovirus GI/GII PCR (Not detect) Stl GI Panel (PCR) Com Blood Type Antibody Screen 07/16/17 07/16/17 07/16/17 Range/Units 03:11 03:58 05:10 WBC (4.3-11.1) K/mcL RBC (4.19-5.50) M/mcL Hgb (12.9-16.9) g/dL Hct (37.5-50.1) % MCV (83.0-100.0) fL MCH (28.0-33.3) pg MCHC (31.6-35.5) g/dL RDW (11.5-14.5) % Plt Count (140-400) K/mcL MPV (9.4-12.4) fL Immature Gran % (0-4) % Seg Neutrophils % % Lymphocytes % % Monocytes % % Eosinophils % % Basophils % % Neutrophils # (1.6-8.9) K/mcL Lymphocytes # (0.6-4.6) K/mcL Monocytes # (0.0-1.3) K/mcL Eosinophils # (0.0-0.6) K/mcL Basophils # (0.0-0.2) K/mcL Sodium (136-145) mEq/L Potassium (3.5-4.5) mEq/L Chloride (98-109) mEq/L Carbon Dioxide (19-29) mEq/L BUN (8-26) mg/dL Creatinine (0.72-1.25) mg/dL Est GFR ( Amer) (> 60) Est GFR (Non-Af Amer) (> 60) BUN/Creatinine Ratio (6-26) Glucose (70-99) mg/dL Calculated Osmolality (280-300) Calcium (8.6-10.8) mg/dL Total Bilirubin (0.2-1.2) mg/dL Direct Bilirubin (0.0-0.5) mg/dL Indirect Bilirubin (0.0-1.2) mg/dL AST (5-34) Units/L ALT (0-55) Units/L Alkaline Phosphatase (38-126) Units/L Serum Total Protein (6.0-8.3) g/dL Albumin (3.5-5.0) g/dL Globulin (2.4-3.5) g/dL Albumin/Globulin Ratio (1.1-2.2) Lipase (8-78) Units/L Urine Color (Yellow) Urine Clarity (Clear) Urine pH (5.0-8.0) pH Units Ur Specific [place] (1.010-1.025) Urine Protein (Neg-Trace) mg/dL Urine Glucose (UA) (Normal) mg/dL Urine Ketones (Negative) mg/dL Urine Blood (Negative) Urine Nitrite (Negative) Urine Bilirubin (Negative) Urine Urobilinogen (Normal) mg/dL Ur Leukocyte Esterase (Negative) Urine Microscopic RBC (0-3) per hpf Urine Microscopic WBC (0-3) per hpf Ur Squamous Epith Cells (None-Few) per lpf Urine Bacteria (None-Few) per hpf Ur Culture Indicated? (NO) Stool Occult Blood Positive A (Negative) Stl C. cayetanensis PCR Not detected (Not detect) Stool Rotavirus A PCR Not detected (Not detect) Stl Adenov F 40/41 PCR Not detected (Not detect) Stool Astrovirus (PCR) Not detected (Not detect) Stool Campylobacter PCR Not detected (Not detect) Stl C. diff Tox A/B PCR Not detected (Not detect) Stool Cryptosporidium PCR Not detected (Not detect) Stl Sh Tox Pr E STEC PCR Not detected (Not detect) Stool E coli O157 PCR Not detected (Not detect) Stl Enterotoxigenic E PCR Not detected (Not detect) Stool EPEC (PCR) Not detected (Not detect) Stool EAEC (PCR) Not detected (Not detect) Stl E. histolytica PCR Not detected (Not detect) Stool Giardia Lamblia PCR Not detected (Not detect) Stool Salmonella PCR Not detected (Not detect) Stool Sapovirus (PCR) Not detected (Not detect) Stl P. shigelloides PCR Not detected (Not detect) Stl Shigella/EIEC PCR Not detected (Not detect) St Y.enterocolitica PCR Not detected (Not detect) Stool Vibrio (PCR) Not detected (Not detect) Stl Vibrio cholerae PCR Not detected (Not detect) Stl Norovirus GI/GII PCR Not detected (Not detect) Stl GI Panel (PCR) Com See below Blood Type A POSITIVE Antibody Screen NEGATIVE - Radiology Data Radiology results reviewed: Yes I reviewed the patient's radiology results. Abdomen/Pelvis CT 07/16/17 02:41 IMPRESSION: 1. Mild diffuse colonic stool burden. No evidence of obstruction or significant inflammatory process. No CT evidence of appendicitis. 2. Cholelithiasis with no acute features. 3. Nonobstructive left-sided nephrolithiasis. 4. Mild prostatomegaly. 5. Severe aortoiliac plaque disease. Narrowing of the distal aortic lumen probably hemodynamically significant. D/ / Aaron Isaac MD / Aaron Isaac MD Interpreting Provider: Aaron Isaac MD
[2017-07-16 06:42] LABS: Adenovirus F 40/41 PCR Not detected (Not detect); Astrovirus PCR Not detected (Not detect); C.difficile Toxin A/B by PCR Not detected (Not detect); Campylobacter by PCR Not detected (Not detect); Cryptosporidium by PCR Not detected (Not detect); Cyclospora cayetanensis PCR Not detected (Not detect); E. coli O157 by PCR Not detected (Not detect); Entamoeba histolytica PCR Not detected (Not detect); Enteroaggregative E.coli(EAEC) Not detected (Not detect); Enteropathogenic E.coli(EPEC) Not detected (Not detect); Enterotoxigenic E.coli (ETEC) Not detected (Not detect); Giardia lamblia PCR Not detected (Not detect); Norovirus GI/GII PCR Not detected (Not detect); Plesiomonas shigelloides PCR Not detected (Not detect); Rotavirus A PCR Not detected (Not detect); Salmonella PCR Not detected (Not detect); Sapovirus PCR Not detected (Not detect); Shig/EnteroinvasiveE coli EIEC Not detected (Not detect); Shigalike tox-prod E coli STEC Not detected (Not detect); Vibrio PCR Not detected (Not detect); Vibrio cholerae PCR Not detected (Not detect); Yersinia enterocolitica PCR Not detected (Not detect)
[2017-07-16] MEDS ORDERED: *HR* Propofol 200 MG/20 ML VIAL IVP ONE (06:50)
[2017-07-16] MEDS ORDERED: Lidocaine -MPF 2% 5 ML VIAL INFILT ONE (06:50)
[2017-07-16] MEDS ORDERED: Naloxone 0.4 MG/ML INJ IVP PRN (07:31)
[2017-07-16] MEDS ORDERED: D5% in Water 1,000 ML IVC PRN (07:34)
[2017-07-16] MEDS ORDERED: *HR* Dextrose 50 % in Water (Syg) 50 ML SYRINGE IVP PRN (07:34)
[2017-07-16] MEDS ORDERED: Dextrose Gel 15 GM PO PRN ×2 (07:34)
--- NOTE | 2017-07-16 07:55 | Internal Med History&Physical ---
Date of Encounter: 07/16/17 Time of Encounter: 07:52 Assessment and Plan (1) Melena Current visit: Yes Status: Acute Mr. Bassett is a 77 year old male with PMH CAD, end-stage renal disease, diabetes , A. fib on Eliquis and hypertension presented to [facility] on 07/16/2017 with complaints of black stool. He was placed in observation status for monitoring of Hgb and GI evaluation. 1. Melena: patient reports black stool for 2-3 days prior to presentation. With intermittent bradycardia but hemodynamically stable. Hgb 10.8; baseline appears to be between 12-13. No previous history of GI bleeding. Occult stool positive and ER. Keep nothing by mouth, monitor H&H, transfuse for Hgb less than 8, hold home Eliquis, IV PPI, IV fluids, consult GI 2. A-fib: per hx; s/p pacemaker/defibrillator. Telemetry showing A. fib with HRs in 40s-50s. Holding eliquis with possible GI bleed. Hold home BB. May need reduction in BB. Will order pacer interrogation. Cardiology consulted 3. Loose stool: Patient reports 5-6 loose stools and ER. Recently treated with ATB for UTI. Stool for C. difficile pending. 4. CAD: hx CABG 1992. Asymptomatic, denies chest pain. EKG without acute ST changes. Holding Eliquis with possible GI bleed and holding BB with bradycardia. ABD CT showed severe aortoiliac plaque disease, narrowing of the distal aortic lumen, probably hemodynamically significant (new finding since 2015). Vascular Surgery consulted. Continue statin 5. History of urinary retention: Patient reports being recently admitted at [facility] for urinary retention; had a James catheter placed at that time which has since been removed. ABD CT with mild prostatomegaly. Not oliguric. Check PVR with bladder scan. 6. ESRD: on HD. Cr 2.7. Nephrology consulted 7. Hypertension: per hx. On multiple BP medications. SBPs in 150s on arrival. Continue home amlodipine, hold home clonidine, hydralazine as to not drop blood pressure too low with possible GI bleed. Holding BB with bradycardia. Monitor BP and titrate/resume home BP medication PRN and as BP allows. 8. Diabetes: per hx. holding home oral hypoglycemics. SSI. Monitor blood sugar and titrate PRN 9. CHF: per hx. Has PPM/defibrillator. 12/2016 TTE with EF 45%. Appears compensated. Continue JAMAL, Lasix. 10. DVT prophylaxis: SCDs (2) ESRD (end stage renal disease) on dialysis Current visit: Yes Status: Acute (3) H/O urinary retention Current visit: Yes Status: Acute (4) Atrial fibrillation with slow ventricular response Current visit: No Status: Acute (5) CAD (coronary artery disease) Current visit: No Status: Chronic Qualifiers: Coronary Disease-Associated Artery/Lesion type: [place] artery [place] vs. transplanted heart: [place] heart Associated angina: angina presence unspecified Qualified Code(s): I25.10 - Atherosclerotic heart disease of [place] coronary artery without angina pectoris (6) Diabetes mellitus Current visit: No Status: Acute Qualifiers: Diabetes mellitus type: type 2 Diabetes mellitus complication status: with kidney complications Diabetes mellitus complication detail: with chronic kidney disease Diabetes mellitus solid die cutter insulin use: without solid die cutter use Chronic kidney disease stage: stage 4 (severe) Qualified Code(s): E11.22 - Type 2 diabetes mellitus with diabetic chronic kidney disease; N18.4 - Chronic kidney disease, stage 4 (severe); N18.4 - Chronic kidney disease, stage 4 ( severe); N18.4 - Chronic kidney disease, stage 4 (severe); N18.4 - Chronic kidney disease, stage 4 (severe) (7) DVT prophylaxis Current visit: No Status: Acute (8) HTN (hypertension) Current visit: No Status: Chronic Qualifiers: Hypertension type: essential hypertension Qualified Code(s): I10 - Essential (primary) hypertension Internal Medicine - H&P: HPI Chief complaint: black stools Admitted From: Home History of present illness: Mr. Bassett is a 77 year old male with PMH CAD, end-stage renal disease, diabetes , A. fib on Eliquis and hypertension presented to [facility] on 07/16/2017 with complaints of black stool. He was placed in observation status for monitoring of Hgb and GI evaluation. Information obtained from chart review and patient report. Patient says he was recently admitted to [facility] and was found to have urinary retention and UTI. He was treated with antibiotic and James catheter placement. James catheter was removed a few days later. He has been doing well since then until the past couple days when he noticed black stools. Stools initially solid and formed now he reports loose stool. Says he had 5-6 bowel movements in the emergency room. Denies abdominal pain, has an appetite wants to eat. No SOB, no chest pain, no lightheadedness or dizziness. Past Med Surg Social Fam HX - Past Medical History Medical history: coronary artery disease, diabetes, hyperlipidemia, hypertension , myocardial infarction Psychiatric history: no psych history - Past Surgical History Surgical History: coronary bypass (CABG), pacemaker/AICD - Social History Smoking Status: Current every day smoker Smokeless Tobacco Status: No Alcohol use: none Drug use: none - Family History Mother Hx Family Cardiac Disorders: Yes (HTN) Hx Family Endocrine Disorder: Yes (DM) Internal Medicine - H&P: Meds Amlodipine Besylate 10 mg PO DAILY 10/07/16 [History] Glimepiride [Amaryl] 4 mg PO BID 10/07/16 [History] Insulin Glargine,Hum.rec.anlog [Lantus Solostar] 10 unit SQ DAILY 10/07/16 [ History] Lisinopril [Zestril] 40 mg PO DAILY 10/07/16 [History] Lovastatin [Mevacor] 20 mg PO HS 10/07/16 [History] cloNIDine HCl [CloNIDine HCl] 0.1 mg PO TID 10/07/16 [History] Acetaminophen [Tylenol] 650 mg PO Q6HR PRN #60 tablet 10/08/16 [Rx] Cyanocobalamin (B-12) [Vitamin B12] 1,000 mcg PO DAILY #90 tablet 10/08/16 [Rx] Ergocalciferol (VITAMIN D2) [Vitamin D2] 50,000 unit PO QWEEK #10 capsule [Rx] Metoprolol [Lopressor] 100 mg PO BID 10/08/16 [History] Nitroglycerin 0.4 mg SL Q5MIN PRN #30 tab.subl 10/08/16 [Rx] Thiamine HCl 250 mg PO DAILY #90 tablet 10/08/16 [Rx] Albuterol Sulfate [Albuterol Inhaler] 2 puff IH Q4HR PRN 12/28/16 [History] Apixaban [Eliquis] 2.5 mg PO BID 12/28/16 [History] Furosemide [Lasix] 80 mg PO TID 12/28/16 [History] Omeprazole [PriLOSEC] 20 mg PO DAILY 12/28/16 [History] hydrALAZINE [HydrALAZINE] 25 mg PO BID 12/28/16 [History] Mirtazapine [Remeron] 15 mg PO HS 07/16/17 [History] 3 Allergy/AdvReac Type Severity Reaction Status Date / Time No Known Allergies Allergy Verified 12/28/16 19:49 All Systems PM: A 10-system review of systems was performed and is negative for pertinent findings except as documented above in the HPI. - Constitutional Constitutional: no chills, no fever(s), no night sweats - EENT Eyes: no change in vision, no discharge, no pain, no photophobia Ears: no ear discharge, no ear pain, no tinnitus Nose, mouth and throat: no dysphagia, no nasal discharge, no neck pain, no sore throat - Cardiovascular Cardiovascular ROS IM: no chest pain, no diaphoresis, no dyspnea, no lightheadedness, no palpitations, no syncope - Respiratory Respiratory: no cough, no dyspnea, no wheezing, no excessive phlegm production - Gastrointestinal Gastrointestinal: loose stools, melena, no abdominal pain, no diarrhea, no hematemesis, no hematochezia, no nausea, no vomiting - Musculoskeletal Musculoskeletal ROS IM: no numbness, no tingling - Integumentary Integumentary IM: no rash, no unusual bruising - Neurological Neurological ROS: no confusion, no convulsions, no focal weakness, no numbness, no tingling, no tremor(s) - Hematologic/Lymphatic Hematologic/Lymphatic: no easy bruising - Constitutional Vitals: Temp Pulse Resp BP Pulse Ox 98.0 F 55 16 158/69 98 07/16/17 00:47 07/16/17 07:37 07/16/17 07:37 07/16/17 07:37 07/16/17 07:37 General appearance: Present: A&O X 3, no acute distress - Head Head exam: Present: atraumatic, normocephalic - Eye Eye exam: Present: PERRL, conjuntiva pink, sclera anicteric Pupils: Present: PERRL - Neck Neck exam general surgery: Present: supple, trachea midline. Absent: lymphadenopathy - Respiratory Respiratory exam: Present: rhonchi. Absent: accessory muscle use, rales, wheezes - Cardiovascular Cardiovascular exam: Present: bradycardia, irregular rhythm, +S1, +S2. Absent: diastolic murmur, gallop, rubs, systolic murmur - GI/Abdominal GI/Abdominal exam: Present: normal bowel sounds, soft, no peritoneal signs. Absent: distended, tenderness - Extremities Exam Extremities exam: Present: pedal edema, warm, radial pulses palpable and symmetrical. Absent: calf tenderness, cyanotic Additional comments: Bilateral lower extremity edema - Neurological Exam Neurological exam: Present: CN II-XII intact, oriented X3, no focal deficits. Absent: pronater drift, facial droop, speech deficit - Skin Skin exam: Present: dry, intact Internal Med - H&P Results - Labs CBC & Chem 7: 07/16/17 01:04 07/16/17 01:04
[2017-07-16] MEDS: Pantoprazole 40 MG VIAL IVP SCH (09:23)
[2017-07-16] MEDS: Thiamine (B-1) 100 MG TABLET PO SCH (09:23)
[2017-07-16] MEDS: amLODIPine 5 MG TABLET PO SCH (09:23)
[2017-07-16] MEDS: 0.9 % Sodium Chloride 1,000 ML IVC SCH ×2 (09:24→23:17)
--- NOTE | 2017-07-16 10:13 | Anesthesia Evaluation PreOp ---
Date of Encounter: 07/16/17 Time of Encounter: 10:11 - Past History Planned Operation: EGD Cardiac History: CHF, HTN, Arrhythmia (afib), Cardiac Surgery (CABG 1992), Pacemaker/ICD, Other (CAD) Pulmonary History: Smoker Other Medical History: Renal (ESRD on HD), Diabetes Type II, Other (Melana) Anesthesia History: No Prior Anesthetic Complications, Past Anesthesia (CABG 93) Alcohol Use: none Drug use: none Medications and Allergies Amlodipine Besylate 10 mg PO DAILY 10/07/16 [History] Glimepiride [Amaryl] 4 mg PO BID 10/07/16 [History] Insulin Glargine,Hum.rec.anlog [Lantus Solostar] 10 unit SQ DAILY 10/07/16 [ History] Lisinopril [Zestril] 40 mg PO DAILY 10/07/16 [History] Lovastatin [Mevacor] 20 mg PO HS 10/07/16 [History] cloNIDine HCl [CloNIDine HCl] 0.1 mg PO TID 10/07/16 [History] Acetaminophen [Tylenol] 650 mg PO Q6HR PRN #60 tablet 10/08/16 [Rx] Cyanocobalamin (B-12) [Vitamin B12] 1,000 mcg PO DAILY #90 tablet 10/08/16 [Rx] Ergocalciferol (VITAMIN D2) [Vitamin D2] 50,000 unit PO QWEEK #10 capsule [Rx] Metoprolol [Lopressor] 100 mg PO BID 10/08/16 [History] Nitroglycerin 0.4 mg SL Q5MIN PRN #30 tab.subl 10/08/16 [Rx] Thiamine HCl 250 mg PO DAILY #90 tablet 10/08/16 [Rx] Albuterol Sulfate [Albuterol Inhaler] 2 puff IH Q4HR PRN 12/28/16 [History] Apixaban [Eliquis] 2.5 mg PO BID 12/28/16 [History] Furosemide [Lasix] 80 mg PO TID 12/28/16 [History] Omeprazole [PriLOSEC] 20 mg PO DAILY 12/28/16 [History] hydrALAZINE [HydrALAZINE] 25 mg PO BID 12/28/16 [History] Mirtazapine [Remeron] 15 mg PO HS 07/16/17 [History] 3 Allergy/AdvReac Type Severity Reaction Status Date / Time No Known Allergies Allergy Verified 12/28/16 19:49 Anesthesia Results - Labs 07/16/17 01:04 07/16/17 01:04 - Imaging EKG: report reviewed (ATRIAL FIBRILLATION MODERATE IVCD POOR R-WAVE PROGRESSION MODERATE T-WAVE ABNORMALITY, CONSIDER INFEROLATERAL ISCHEMIA) Additional studies: echo: Impressions: Mild LV systolic dysfunction, LVEF 45%. There are regional wall motion abnormalities, see diagram below. Atypical septal motion consistent with prior cardiac surgery. Indeterminate diastolic function due to atrial fibrillation. Normal right ventricular size. Mild RV hypokinesis. A device lead was visualized in the right atrium and right ventricle. Mildly dilated left atrium. Mildly dilated right atrium. Mild tricuspid regurgitation. Mild pulmonary hypertension. Estimated RVSP =38 mmHg. Anesthesia Exam Selected Entries 07/16/17 07:37 Pulse Rate 55 Respiratory Rate 16 Blood Pressure 158/69 O2 Sat by Pulse Oximetry 98 Oxygen Delivery Method Room Air Weight: 65kg - HEENT Pupil (Motor): EOMI Mallampati: II Teeth: Missing, Edentulous (upper), Poor dentition (lower) Oral Opening: Greater than 3 - CAR ATTENDANT LOC: Oriented CAR ATTENDANT Motor: Normal RUE, Normal LUE, Normal RLE, Normal LLE, Normal Face CAR ATTENDANT Sensory: Normal: RUE, LUE, RLE, LLE, Face - Cardiac Rhythm: Irregular Murmur: None - Pulmonary Breath Sounds: bilateral Clear Respiratory Effort: Symmetrical Anesthesia Assess/Plan ASA Score: 4 Modified Sherron Scale for Level of Consciousness: Cooperative, oriented, and tranquil Anesthetic Plan: MAC Monitoring Plan: Standard Monitors Recovery Plan: Other (discussed MAC agrees to proceed)
--- NOTE | 2017-07-16 10:33 | Gastroenterology Consult Note ---
<Cheryl Blackburn - Last Filed: 07/16/17 11:18> Date of Encounter: 07/16/17 Time of Encounter: 09:30 - Assessment and plan (1) Melena Current Visit: Yes Status: Acute Assessment and plan: Pt presents with 6 month history of black stools. Hemoglobin is 10.8, baseline ~ 13. He is on eliquis for CAD. He needs EGD to rule out upper GI bleed as cause for anemia. (2) ESRD (end stage renal disease) on dialysis Current Visit: Yes Status: Acute Assessment and plan: Pt had hemodialysis yesterday. Request for nephrology progress note sent. (3) CAD (coronary artery disease) Current Visit: No Status: Chronic Assessment and plan: Pt on eliquis, followed by cardiology. Qualifiers: Coronary Disease-Associated Artery/Lesion type: [place] artery [place] vs. transplanted heart: [place] heart Associated angina: angina presence unspecified Qualified Code(s): I25.10 - Atherosclerotic heart disease of [place] coronary artery without angina pectoris - Time Spent With Patient Total time spent is greater than 50% in coordination of care (as documented) at patient's floor/unit and/or counseling patient: GI History of Present Illness - Data of Consult Patient: new to practice Consult date: 07/16/17 Requesting Physician: Tova Bullock MD - Consult Narrative Reason for consult: melena History of present illness: Mr. Bassett is a 77 year old male who originally presented with constipation for approximately 5 days. While in the ER he had 5-6 bowel movements, black in color and hemoccult was positive. He reports intermittent black stools for the past 6 months. He has a PMH of CAD, end-stage renal disease, diabetes, and hypertension. He has a surgical history of CABG and AICD/pacemaker placement. He denies any abdominal pain, nausea or vomiting, or fever. He denies weight loss or loss of appetite. He reports has recently been started on hemodialysis and had treatment yesterday. He denies SOB, no chest pain, no lightheadedness or dizziness. Labs show a HGB 10.8, plt, 147, BUN 40, CREAT 2.74, T bili 0.4, albumin 3.6, AST 26, ALT 25. Stool studies negative exceppt for occult blood. CT abdomen showed1. Mild diffuse colonic stool burden. No evidence of obstruction or significant inflammatory process. No CT evidence of appendicitis.2. Cholelithiasis with no acute features.3. Nonobstructive left- sided nephrolithiasis.4. Mild prostatomegaly.5. Severe aortoiliac plaque disease. Narrowing of the distal aortic lumen probably hemodynamically significant. Colonoscopy: 5-6 years ago EGD: never NSAIDS/ASA: none Anticoagulants: eliquis Past Med Surg Social Fam HX - Past Medical History Medical history: coronary artery disease, diabetes, hyperlipidemia, hypertension , myocardial infarction Psychiatric history: no psych history - Past Surgical History Surgical History: coronary bypass (CABG), pacemaker/AICD - Social History Smoking Status: Current every day smoker Packs per day: 1-2 CIGS Smokeless Tobacco Status: No Alcohol use: none Drug use: none - Family History Mother Adopted: [place]: ANA PAULA Family Member Ethnicity: Non- Living Status: Age at : 69 Cause of : HEART FAILURE Hx Family Cardiac Disorders: Yes (HTN) Hx Family Respiratory Disorders: No Hx Family Cancer: Yes Hx Family Genitourinary Disorders: No Hx Family Endocrine Disorder: Yes (DM) Hx Family Musculoskeletal Disorders: No Hx Family Neuromuscular Disorders: No Hx Family Neurologic Disorders: No Hx Family HEENT Disorders: No Hx Family Autoimmune Disorders: No Hx Family Reproductive Disorders: No Hx Family Psychosocial Disorders: No Hx Family Medical Disorders: No Review of Systems: GI: as per MANZANITA GENERAL: denies fever or chills EYES: denies yellow discoloration ENT: denies pain with swallowing or difficulty swallowing CARDIO: denies chest pain, palpitations RESP: mild Shortness of breath with exertion : denies change in color of urine NEURO: denies any weakness HEME: Denies any bruising MS: chronic joint pain, DERM: denies rash or itching PSYCH: Denies history of anxiety or depression - Constitutional Vitals: Temp Pulse Resp BP Pulse Ox 98.0 F 55 16 158/69 98 07/16/17 00:47 07/16/17 07:37 07/16/17 07:37 07/16/17 07:37 07/16/17 07:37 Exam: CONSTITUTIONAL:~alert, no acute distress.~HEAD:~normocephalic.~EYES:~no jaundice.~NECK:~no obvious swelling.~HEART:~regular rate and rhythm, murmur noted.~LUNGS:~fair air exchange bilaterally~ABDOMEN:~non distended, soft, minimal tenderness bilateral lower quadrantes, no masses pulpable, no organomegaly.~RECTAL EXAM:~Deferred.~EXTREMITIES:~no clubbing, cyanosis, trace BLE edema.~SKIN:~ pallor noted, no stigmata of chronic liver disease.~NEUROLOGIC :~no obvious focal defect.~~~~ Results - Labs CBC & Chem 7: 07/16/17 01:04 07/16/17 01:04 Labs: Last Result Calcium 9.3 mg/dL (8.6-10.8) 07/16/17 01:04 Stool Occult Blood Positive (Negative) A 07/16/17 03:58 Entire Visit Hgb 10.8 g/dL (12.9-16.9) L 07/16/17 01:04 Hct 31.5 % (37.5-50.1) L 07/16/17 01:04 Total Bilirubin 0.4 mg/dL (0.2-1.2) 07/16/17 01:04 AST 26 Units/L (5-34) 07/16/17 01:04 ALT 25 Units/L (0-55) 07/16/17 01:04 Lipase 72 Units/L (8-78) 07/16/17 01:04 Consult Discharge Plan - Plan Referrals: Malik Roberts DO [Primary Care Provider] - 07/25/17 1:30 pm <Anuj Thomas - Last Filed: 07/17/17 11:51> Date of Encounter: 07/16/17 Time of Encounter: 13:00 - Time Spent With Patient Total time spent is greater than 50% in coordination of care (as documented) at patient's floor/unit and/or counseling patient: GI History of Present Illness - Data of Consult Requesting Physician: Christa Alvarez MD - Consult Narrative History of present illness: Mr. Bassett is a 77 year old male - Constitutional Vitals: Temp Pulse Resp BP Pulse Ox 97.3 F L 64 16 151/56 96 07/17/17 11:23 07/17/17 11:23 07/17/17 11:23 07/17/17 11:23 07/17/17 11:23 Results - Labs CBC & Chem 7: 07/17/17 01:21 07/17/17 01:21 Labs: Last Result Calcium 9.0 mg/dL (8.6-10.8) 07/17/17 01:21 Stool Occult Blood Positive (Negative) A 07/16/17 03:58 Entire Visit Hgb 9.4 g/dL (12.9-16.9) L 07/17/17 01:21 Hct 28.2 % (37.5-50.1) L 07/17/17 01:21 Total Bilirubin 0.5 mg/dL (0.2-1.2) 07/17/17 01:21 AST 24 Units/L (5-34) 07/17/17 01:21 ALT 24 Units/L (0-55) 07/17/17 01:21 Lipase 72 Units/L (8-78) 07/16/17 01:04 - Attending Attestation 77 year old male with intermittent black stools over the past 6 months. No past history of peptic ulcer disease or family hx of GI malignancy. Will plan EGD today and colonoscopy tomorrow. Further recommendations after EGD. I personally examined and interviewed Mr. Bassett. Anuj Thomas MD
--- NOTE | 2017-07-16 11:42 | Cardiology Consult Note ---
Date of Encounter: 07/16/17 Time of Encounter: 11:45 Assessment and Plan (1) Melena Current Visit: Yes Status: Acute (2) Atrial fibrillation with slow ventricular response Current Visit: No Status: Acute (3) CHF (congestive heart failure) Current Visit: No Status: Chronic Per Cardiology: Echo 12/2016: Impressions: Mild LV systolic dysfunction, LVEF 45%. There are regional wall motion abnormalities, see diagram below. Atypical septal motion consistent with prior cardiac surgery. Indeterminate diastolic function due to atrial fibrillation. Normal right ventricular size. Mild RV hypokinesis. A device lead was visualized in the right atrium and right ventricle. Mildly dilated left atrium. Mildly dilated right atrium. Mild tricuspid regurgitation. Mild pulmonary hypertension. Estimated RVSP =38 mmHg. Left Ventricular Wall Motion: Rest Echo Findings The mid inferior, basal inferior and basal inferior lateral carreon were hypokinetic. All other wall segments showed normal motion. Qualifiers: Congestive heart failure type: unspecified congestive heart failure type Congestive heart failure chronicity: acute on chronic Qualified Code(s): I50.9 - Heart failure, unspecified (4) Chronic kidney disease Current Visit: No Status: Acute Qualifiers: Chronic kidney disease stage: unspecified stage Qualified Code(s): N18.9 - Chronic kidney disease, unspecified Discussion w patient/family: The assessment and plan as outlined above was discussed with the patient and/or family members who expressed understanding and agreement. All questions were answered. Thank you for involving us in the care of your patient. Please call with any questions. History of Present Illness Consult date: 07/16/17 Requesting physician: Sheela Dhaliwal Consult reason: Bradycardia, Pacer malfunction? History of present illness: Mr. Bassett is a 77 year old male Past Med Surg Social Fam HX - Past Medical History Attestation: Yes The following information was validated with the patient. Source: patient, old records reviewed Medical history: coronary artery disease, diabetes, hyperlipidemia, hypertension , myocardial infarction Psychiatric history: no psych history - Past Surgical History Surgical History: coronary bypass (CABG), pacemaker/AICD - Social History Smoking Status: Current every day smoker Packs per day: 1-2 CIGS Smokeless Tobacco Status: No Alcohol use: none Drug use: none - Family History Mother Adopted: [place]: ANA PAULA Family Member Ethnicity: Non- Living Status: Age at : 69 Cause of : HEART FAILURE Hx Family Cardiac Disorders: Yes (HTN) Hx Family Respiratory Disorders: No Hx Family Cancer: Yes Hx Family Genitourinary Disorders: No Hx Family Endocrine Disorder: Yes (DM) Hx Family Musculoskeletal Disorders: No Hx Family Neuromuscular Disorders: No Hx Family Neurologic Disorders: No Hx Family HEENT Disorders: No Hx Family Autoimmune Disorders: No Hx Family Reproductive Disorders: No Hx Family Psychosocial Disorders: No Hx Family Medical Disorders: No Medications and Allergies Amlodipine Besylate 10 mg PO DAILY 10/07/16 [History] Glimepiride [Amaryl] 4 mg PO BID 10/07/16 [History] Insulin Glargine,Hum.rec.anlog [Lantus Solostar] 10 unit SQ DAILY 10/07/16 [ History] Lisinopril [Zestril] 40 mg PO DAILY 10/07/16 [History] Lovastatin [Mevacor] 20 mg PO HS 10/07/16 [History] cloNIDine HCl [CloNIDine HCl] 0.1 mg PO TID 10/07/16 [History] Acetaminophen [Tylenol] 650 mg PO Q6HR PRN #60 tablet 10/08/16 [Rx] Cyanocobalamin (B-12) [Vitamin B12] 1,000 mcg PO DAILY #90 tablet 10/08/16 [Rx] Ergocalciferol (VITAMIN D2) [Vitamin D2] 50,000 unit PO QWEEK #10 capsule [Rx] Metoprolol [Lopressor] 100 mg PO BID 10/08/16 [History] Nitroglycerin 0.4 mg SL Q5MIN PRN #30 tab.subl 10/08/16 [Rx] Thiamine HCl 250 mg PO DAILY #90 tablet 10/08/16 [Rx] Albuterol Sulfate [Albuterol Inhaler] 2 puff IH Q4HR PRN 12/28/16 [History] Apixaban [Eliquis] 2.5 mg PO BID 12/28/16 [History] Furosemide [Lasix] 80 mg PO TID 12/28/16 [History] Omeprazole [PriLOSEC] 20 mg PO DAILY 12/28/16 [History] hydrALAZINE [HydrALAZINE] 25 mg PO BID 12/28/16 [History] Mirtazapine [Remeron] 15 mg PO HS 07/16/17 [History] 3 Allergy/AdvReac Type Severity Reaction Status Date / Time No Known Allergies Allergy Verified 12/28/16 19:49 All Systems Review: A 10-system review of systems was performed and is negative for pertinent findings except as documented above in the HPI. - Cardiovascular Cardiovascular: as per HPI Physical Examination Vital Signs, Last 4 Hours Temp Pulse Resp BP Pulse Ox 07/16/17 11:04 97.7 F 62 17 146/82 91 07/16/17 10:13 50 16 146/66 94 07/16/17 08:04 46 Results 07/16/17 01:04 07/16/17 01:04 Laboratory Tests 12/29/16 12/29/16 07/16/17 06:30 06:30 01:04 Hgb 12.5 L 10.8 L Hct 36.9 L 31.5 L Creatinine 3.31 H Est GFR (Non-Af Amer) 18 L AST ALT Stool Occult Blood 07/16/17 07/16/17 01:04 03:58 Hgb Hct Creatinine 2.74 H Est GFR (Non-Af Amer) 23 L AST 26 ALT 25 Stool Occult Blood Positive A ITS Impressions Abdomen/Pelvis CT 07/16/17 02:41 IMPRESSION: 1. Mild diffuse colonic stool burden. No evidence of obstruction or significant inflammatory process. No CT evidence of appendicitis. 2. Cholelithiasis with no acute features. 3. Nonobstructive left-sided nephrolithiasis. 4. Mild prostatomegaly. 5. Severe aortoiliac plaque disease. Narrowing of the distal aortic lumen probably hemodynamically significant. D/ : / 07/16/2017 07:44:24 Aaron Isaac MD / corrina Interpreting Provider: Aaron Isaac MD Active Medications Albuterol Sulfate (Albuterol Inhaler) 2 puff IH [id number] PRN PRN Reason: Shortness Of Breath Stop: 01/15/18 08:01 Amlodipine Besylate (Norvasc) 10 mg PO DAILY SANDRA Stop: 01/15/18 09:01 Last Admin: 07/16/17 09:23 Dose: 10 mg Dextrose/Water (Dextrose 50% (Syg)) 25 ml IVP AD PRN PRN Reason: Hypoglycemia Stop: 01/15/18 07:35 Furosemide (Lasix) 80 mg PO TID SANDRA Stop: 01/16/18 09:01 Glucagon (Glucagen) 1 mg IM ONCE PRN PRN Reason: Hypoglycemia Stop: 01/15/18 07:35 Glucose (Gluctose) 15 gm PO ONCE PRN PRN Reason: Hypoglycemia Stop: 01/15/18 07:35 Glucose (Gluctose) 30 gm PO ONCE PRN PRN Reason: Hypoglycemia Stop: 01/15/18 07:35 Sodium Chloride (0.9 % Sodium Chloride) 1,000 mls @ 75 mls/hr IVC .[id number] SANDRA Stop: 01/15/18 07:46 Last Admin: 07/16/17 09:24 Dose: 75 mls/hr Dextrose (Dextrose 5%) 1,000 mls @ 100 mls/hr IVC .Q10H PRN PRN Reason: HYPOGLYCEMIA Stop: 01/15/18 07:35 Insulin Human Lispro (Humalog) 0 units SQ TIDAC SANDRA PRN Reason: Protocol Stop: 01/15/18 11:31 Insulin Human Lispro (Humalog) 0 units SQ HS SANDRA PRN Reason: Protocol Stop: 01/15/18 21:01 Lisinopril (Zestril) 40 mg PO DAILY [facility] Stop: 01/16/18 09:01 Mirtazapine (Remeron) 15 mg PO HS [facility] Stop: 01/15/18 21:01 Naloxone HCl (Narcan) 0.4 mg IVP Q2MIN PRN PRN Reason: Opioid Reversal Stop: 01/15/18 07:32 Pantoprazole Sodium (Protonix) 40 mg IVP DAILY [facility] Stop: 01/15/18 09:01 Last Admin: 07/16/17 09:23 Dose: 40 mg Simvastatin (Zocor) 10 mg PO HS [facility] Stop: 01/15/18 21:01 Thiamine HCl (Vitamin B-1) 250 mg PO DAILY [facility] Stop: 01/15/18 09:01 Last Admin: 07/16/17 09:23 Dose: 250 mg - Imaging and Cardiology Echo: report reviewed - EKG Interpretation EKG results cardiology: other Consult Discharge Plan - Plan Referrals: Malik Roberts DO [Primary Care Provider] - 07/25/17 1:30 pm
[2017-07-16] MEDS: Insulin LISPRO 300 UNITS/3 ML VIAL SQ SCH ×3 (12:00→21:40)
--- NOTE | 2017-07-16 12:22 | Event Note ---
Date of Encounter: 07/16/17 Time of Encounter: 12:15 - Cardiology Event Note Cardiology initially consulted for concerns of pacemaker malfunction and request for interrogation. Per patient, he does not have pacemaker and has ICD only. Previous records reviewed from outside facility noted in [facility] and no history of pacemaker noted. 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 Appears to be admitted for melena and pending EGD today (on Eliquis for afib-- on hold). Has Hx CAD and CABG. Discussed with primary service, consult cancelled for now. Please consult cardiology if needed.
[2017-07-16] MEDS ORDERED: Tetracaine/Benzocaine/Butamben 200MG/SPRAY (100SPY/BOT) MM ONE (12:48)
--- NOTE | 2017-07-16 12:58 | Event Note ---
Date of Encounter: 07/16/17 Time of Encounter: 12:57 I attempted to see the patient for a renal consult. Medical record was reviewed. The patient is not in his room. Currently he is away for testing. I will try to see him later today.
[2017-07-16] MEDS ORDERED: Polyethylene Glycol 3350 255 GM POWDER PO ONE (15:08)
[2017-07-16 15:27] LABS: Hematocrit 32.8 % (37.5-50.1); Hemoglobin 10.7 g/dL (12.9-16.9)
[2017-07-16] MEDS ORDERED: Melatonin 3 MG TABLET PO PRN (15:56)
--- NOTE | 2017-07-16 16:54 | Electrocardiograph Report ---
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
[2017-07-16] MEDS ORDERED: SODIUM CHLORIDE/NAHCO3/KCL/PEG 4,000 ML SOLN.RECON PO ONE (18:00)
[2017-07-16] MEDS: Mirtazapine 15 MG TABLET PO SCH (21:34)
--- NOTE | 2017-07-16 22:22 | Vascular/Endovasc Consult Note ---
Date of Encounter: 07/16/17 Time of Encounter: 10:30 Assessment and Plan (1) Atherosclerosis of [place] arteries of extremities with intermittent claudication, bilateral legs Status: Chronic The patient reports bilateral lower extremity calf claudication. He denies rest pain, ulceration or gangrene. He has a diminished pulse exam. His CT reveals evidence of distal aortic stenosis. The pathophysiology and natural history of peripheral vascular disease was discussed with the patient and all questions were answered. The patient has no evidence of limb threatening ischemia. The patient will be scheduled for an ankle brachial index. (2) Diabetes mellitus Status: Chronic Qualifiers: Diabetes mellitus type: type 2 Diabetes mellitus complication status: with kidney complications Diabetes mellitus complication detail: with chronic kidney disease Diabetes mellitus project asst insulin use: without project asst use Chronic kidney disease stage: stage 4 (severe) Qualified Code(s): E11.22 - Type 2 diabetes mellitus with diabetic chronic kidney disease; N18.4 - Chronic kidney disease, stage 4 (severe); N18.4 - Chronic kidney disease, stage 4 ( severe); N18.4 - Chronic kidney disease, stage 4 (severe); N18.4 - Chronic kidney disease, stage 4 (severe) (3) A-fib Status: Chronic Qualifiers: Atrial fibrillation type: chronic Qualified Code(s): I48.2 - Chronic atrial fibrillation (4) CAD (coronary artery disease) Status: Chronic Qualifiers: Coronary Disease-Associated Artery/Lesion type: [place] artery [place] vs. transplanted heart: [place] heart Associated angina: angina presence unspecified Qualified Code(s): I25.10 - Atherosclerotic heart disease of [place] coronary artery without angina pectoris (5) Chronic kidney disease Status: Acute Qualifiers: Chronic kidney disease stage: on chronic dialysis Qualified Code(s): N18.6 - End stage renal disease; Z99.2 - Dependence on renal dialysis; Z99.2 - Dependence on renal dialysis; Z99.2 - Dependence on renal dialysis; Z99.2 - Dependence on renal dialysis (6) GI bleed Status: Acute Qualifiers: GI bleed type/associated pathology: unspecified gastrointestinal hemorrhage type Qualified Code(s): K92.2 - Gastrointestinal hemorrhage, unspecified - History of Present Illness Consult date: 07/16/17 Requesting physician: Sheela Dhaliwal Consult reason: Aortic Stenosis Chief complaint: Claudication History of present illness: Mr. Bassett is a 77 year old male with a history of atrial fibrillation, coronary artery disease, chronic kidney disease, hypertension and diabetes who reports several days of melena. He was seen in the ER and admitted to [facility] for further evaluation. The patient is chronically anticoagulate with Eliquis. As part of his evaluation, he underwent a CT scan which revealed aortic stenosis. Vascular surgery was consulted for further evaluation. The patient reports symptoms of bilateral calf pain with ambulation. He denies rest pain, ulceration or gangrene. He denies chest pain or shortness of breath. Past Med Surg Social Fam HX - Past Medical History Medical history: coronary artery disease, diabetes, hyperlipidemia, hypertension , myocardial infarction Psychiatric history: no psych history - Past Surgical History Surgical History: coronary bypass (CABG), pacemaker/AICD - Social History Smoking Status: Current every day smoker Packs per day: 1-2 CIGS Smokeless Tobacco Status: No Alcohol use: none Drug use: none - Family History Mother Adopted: [place]: ANA PAULA Family Member Ethnicity: Non- Living Status: Age at : 69 Cause of : HEART FAILURE Hx Family Cardiac Disorders: Yes (HTN) Hx Family Respiratory Disorders: No Hx Family Cancer: Yes Hx Family Genitourinary Disorders: No Hx Family Endocrine Disorder: Yes (DM) Hx Family Musculoskeletal Disorders: No Hx Family Neuromuscular Disorders: No Hx Family Neurologic Disorders: No Hx Family HEENT Disorders: No Hx Family Autoimmune Disorders: No Hx Family Reproductive Disorders: No Hx Family Psychosocial Disorders: No Hx Family Medical Disorders: No Medications and Allergies Amlodipine Besylate 10 mg PO DAILY 10/07/16 [History] Glimepiride [Amaryl] 4 mg PO BID 10/07/16 [History] Insulin Glargine,Hum.rec.anlog [Lantus Solostar] 10 unit SQ DAILY 10/07/16 [ History] Lisinopril [Zestril] 40 mg PO DAILY 10/07/16 [History] Lovastatin [Mevacor] 20 mg PO HS 10/07/16 [History] cloNIDine HCl [CloNIDine HCl] 0.1 mg PO TID 10/07/16 [History] Acetaminophen [Tylenol] 650 mg PO Q6HR PRN #60 tablet 10/08/16 [Rx] Cyanocobalamin (B-12) [Vitamin B12] 1,000 mcg PO DAILY #90 tablet 10/08/16 [Rx] Ergocalciferol (VITAMIN D2) [Vitamin D2] 50,000 unit PO QWEEK #10 capsule [Rx] Metoprolol [Lopressor] 100 mg PO BID 10/08/16 [History] Nitroglycerin 0.4 mg SL Q5MIN PRN #30 tab.subl 10/08/16 [Rx] Thiamine HCl 250 mg PO DAILY #90 tablet 10/08/16 [Rx] Albuterol Sulfate [Albuterol Inhaler] 2 puff IH Q4HR PRN 12/28/16 [History] Furosemide [Lasix] 80 mg PO TID 12/28/16 [History] Omeprazole [PriLOSEC] 20 mg PO DAILY 12/28/16 [History] hydrALAZINE [HydrALAZINE] 25 mg PO BID 12/28/16 [History] Mirtazapine [Remeron] 15 mg PO HS 07/16/17 [History] 3 Allergy/AdvReac Type Severity Reaction Status Date / Time No Known Allergies Allergy Verified 12/28/16 19:49 All Systems Review: A 10-system review of systems was performed and is negative for pertinent findings except as documented above in the HPI. - Constitutional Constitutional: no chills, no fatigue, no fever(s) - Cardiovascular Cardiovascular: palpitations, no chest pain at rest, no dyspnea at rest Exam Vital Signs, Last 4 Hours Temp Pulse Resp BP Pulse Ox 07/16/17 19:04 97.6 F 55 16 172/67 97 General: Present: Conversant, No Apparent Distress HEENT: Present: Atraumatic, Trachea midline, Pupils equal Neck: Absent: JVD, Lymphadenopathy, Left Carotid bruit, Right Carotid bruit Cardiac: Present: Irregular Rhythm Lungs: Present: Normal Breath Sounds, No Wheeze, Rales, Rhonchi Neuro: Present: Alert and responsive, No focal deficits noted, Motor nerves grossly intact, Sensory nerves grossly intact Abdomen: Present: Soft, Non-tender. Absent: Masses Vascular: Present: Normal capillary refill, Pulse, absent (pedal pulses absent bilaterally), Edema (trace bilateral lower extremity). Absent: Cyanosis Skin: Present: No rashes noted on visualized skin Consult Discharge Plan - Plan Additional Instructions: Follow up with your primary care physician within five days after your discharge from the hospital. continue to hold your home dose of Eliquis until your follow up with your primary care physician. continue all other medications as prescribed by your primary care physician. Referrals: Malik Roberts, [Primary Care Provider] - 07/22/17 1:30 pm
[2017-07-17] MEDS ORDERED: Acetaminophen 325 MG TABLET PO PRN
[2017-07-17 01:37] LABS: Hematocrit 28.2 % (37.5-50.1); Hemoglobin 9.4 g/dL (12.9-16.9); Mean Corpuscular HGB Conc 33.3 g/dL (31.6-35.5); Mean Corpuscular Hemoglobin 31.6 pg (28.0-33.3); Mean Corpuscular Volume 94.9 fL (83.0-100.0); Platelet Count 133 K/mcL (140-400); Red Blood Count 2.97 M/mcL (4.19-5.50); Red Cell Distribution Width 14.8 % (11.5-14.5)
[2017-07-17 01:51] LABS: Albumin 3.4 g/dL (3.5-5.0); Albumin/Globulin Ratio 1.2 (1.1-2.2); Bilirubin,Total 0.5 mg/dL (0.2-1.2); Globulin 2.8 g/dL (2.4-3.5); Potassium 3.9 mEq/L (3.5-4.5); Total Protein 6.2 g/dL (6.0-8.3)
[2017-07-17] MEDS: Insulin LISPRO 300 UNITS/3 ML VIAL SQ SCH ×4 (07:44→21:01)
[2017-07-17] MEDS: Thiamine (B-1) 100 MG TABLET PO SCH (07:53)
[2017-07-17] MEDS: Lisinopril 20 MG TABLET PO SCH (07:54)
[2017-07-17] MEDS: amLODIPine 5 MG TABLET PO SCH (07:54)
[2017-07-17] MEDS: Pantoprazole 40 MG VIAL IVP SCH (07:54)
--- NOTE | 2017-07-17 08:41 | Nephrology Consult Note ---
Date of Encounter: 07/17/17 Time of Encounter: 08:39 Assessment and Plan (1) ESRD (end stage renal disease) on dialysis Current Visit: Yes Status: Acute Patient will undergo usual dialysis today. I believe is also scheduled for a colonoscopy today. Hemoglobin is 9.4. Go ahead and get him started on Aranesp and also check some iron studies. 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; Z79.4 - care home (current) use of insulin; 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 He receives dialysis in [place] every Saturday. He is cared for by one of the [facility] nephrologists. Patient was admitted with a several week history of melena and dark colored stools. He says in general he has not been feeling well. Hemoglobin was 10.7 and today is down to 9.4. He is scheduled for a colonoscopy later today. Stool guaiacs have been positive. Patient does have intermittent shortness of breath especially when he gains too much fluid. He denies any chest pain. He does note a decrease in energy level and overall decrease in his sense of well-being. Past Med Surg Social Fam HX - Past Medical History Medical history: coronary artery disease, diabetes, hyperlipidemia, hypertension , myocardial infarction Psychiatric history: no psych history - Past Surgical History Surgical History: coronary bypass (CABG), pacemaker/AICD - Social History Smoking Status: Current every day smoker Packs per day: 1-2 CIGS Smokeless Tobacco Status: No Alcohol use: none Drug use: none - Family History Mother Adopted: [place]: ANA PAULA Family Member Ethnicity: Non- Living Status: Age at : 69 Cause of : HEART FAILURE Hx Family Cardiac Disorders: Yes (HTN) Hx Family Respiratory Disorders: No Hx Family Cancer: Yes Hx Family Genitourinary Disorders: No Hx Family Endocrine Disorder: Yes (DM) Hx Family Musculoskeletal Disorders: No Hx Family Neuromuscular Disorders: No Hx Family Neurologic Disorders: No Hx Family HEENT Disorders: No Hx Family Autoimmune Disorders: No Hx Family Reproductive Disorders: No Hx Family Psychosocial Disorders: No Hx Family Medical Disorders: No Medications and Allergies Amlodipine Besylate 10 mg PO DAILY 10/07/16 [History] Glimepiride [Amaryl] 4 mg PO BID 10/07/16 [History] Insulin Glargine,Hum.rec.anlog [Lantus Solostar] 10 unit SQ DAILY 10/07/16 [ History] Lisinopril [Zestril] 40 mg PO DAILY 10/07/16 [History] Lovastatin [Mevacor] 20 mg PO HS 10/07/16 [History] cloNIDine HCl [CloNIDine HCl] 0.1 mg PO TID 10/07/16 [History] Acetaminophen [Tylenol] 650 mg PO Q6HR PRN #60 tablet 10/08/16 [Rx] Cyanocobalamin (B-12) [Vitamin B12] 1,000 mcg PO DAILY #90 tablet 10/08/16 [Rx] Ergocalciferol (VITAMIN D2) [Vitamin D2] 50,000 unit PO QWEEK #10 capsule [Rx] Metoprolol [Lopressor] 100 mg PO BID 10/08/16 [History] Nitroglycerin 0.4 mg SL Q5MIN PRN #30 tab.subl 10/08/16 [Rx] Thiamine HCl 250 mg PO DAILY #90 tablet 10/08/16 [Rx] Albuterol Sulfate [Albuterol Inhaler] 2 puff IH Q4HR PRN 12/28/16 [History] Apixaban [Eliquis] 2.5 mg PO BID 12/28/16 [History] Furosemide [Lasix] 80 mg PO TID 12/28/16 [History] Omeprazole [PriLOSEC] 20 mg PO DAILY 12/28/16 [History] hydrALAZINE [HydrALAZINE] 25 mg PO BID 12/28/16 [History] Mirtazapine [Remeron] 15 mg PO HS 07/16/17 [History] 3 Allergy/AdvReac Type Severity Reaction Status Date / Time No Known Allergies Allergy Verified 12/28/16 19:49 Review of Systems Constitutional: as per HPI, weakness Eyes: bilateral: blurred vision (patient denies), diplopia (patient denies) Nose, mouth and throat: no dizziness, no headache(s) Cardiovascular: dyspnea on exertion Respiratory: dyspnea on exertion Gastrointestinal: melena, no abdominal pain, no change in bowel habits Musculoskeletal: no muscle weakness, no numbness Integumentary: no hirsutism, no striae Neurological: as per HPI, weakness Psychiatric: no depression, no difficulty concentrating Endocrine: as per HPI Hematologic/Lymphatic: no easy bruising, no lymphadenopathy Exam - Vital Signs Vital signs: Initial Vital Signs Temp Pulse Resp BP Pulse Ox 98.0 F 64 20 169/66 100 07/16/17 00:47 07/16/17 00:47 07/16/17 00:47 07/16/17 00:47 07/16/17 00:47 Vital Signs - Last 8 Hours Temp Pulse Resp BP Pulse Ox 07/17/17 07:39 97.4 F L 65 17 180/76 95 07/17/17 05:11 97.5 F L 65 16 159/60 96 Intake and Output 07/16/17 07/17/17 07/17/17 23:59 07:59 15:59 Intake Total 2550 / 2550 750 / 750 Output Total 300 / 300 Balance 2250 / 2250 750 / 750 Intake: IV Fluids 1000 / 1000 600 / 600 0.9 % Sodium Chloride 1,000 ML 1000 / 1000 600 / 600 @ 75 mls/hr IVC .[id number] [facility] Rx #:[id number] Oral 1550 / 1550 150 / 150 Output: Urine 300 / 300 Other: Meal Clear liquid diet Stool Size Moderate Small Stool Consistency liquid liquid Stool Color Yellow Yellow Pale Pale # Voids 1 1 # Bowel Movements 2 1 Weight 65.3 kg Blood Glucose* 218 85 Patient Weight 07/17/17 23:59 Weight 65.3 kg - General Appearance Exam: Patient is alert and oriented. He is in no acute distress. Lungs breath sounds otherwise clear. Heart regular rhythm. Abdomen demonstrates several bowel sounds abridge masses or megaly tenderness. There is some mild lower extremity swelling. There is a tunnel dialysis catheter in the right chest. Results - Lab Results 07/17/17 01:21 07/17/17 01:21 Most recent lab results Calcium 9.0 mg/dL (8.6-10.8) 07/17/17 01:21 Consult Discharge Plan - Plan Referrals: Malik Roberts DO [Primary Care Provider] - 07/25/17 1:30 pm
[2017-07-17] MEDS ORDERED: 0.9 % Sodium Chloride 250 ML IVC PRN (08:43)
[2017-07-17] MEDS ORDERED: cloNIDine HCl 0.1 MG TABLET PO SCH (09:00)
[2017-07-17] MEDS ORDERED: Furosemide 40 MG TABLET PO SCH (09:00)
[2017-07-17] MEDS: cloNIDine HCl 0.1 MG TABLET PO SCH ×3 (10:38→21:00)
[2017-07-17] MEDS ORDERED: *HR* Propofol 200 MG/20 ML VIAL IVP ONE (10:45)
[2017-07-17] MEDS ORDERED: Lidocaine -MPF 2% 5 ML VIAL INFILT ONE (10:45)
[2017-07-17 11:50] LABS: Hepatitis B Surface Antibody 0.63 mIU/mL; Hepatitis B Surface Antigen Nonreactive (Nonreactive)
[2017-07-17] MEDS: 0.9 % Sodium Chloride 1,000 ML IVC SCH (11:59)
--- NOTE | 2017-07-17 12:41 | Internal Med Progress Note ---
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 Treated with Argon Plasma coagulation Scheduled for Colonoscopy today (07/17/17) H&H low but acceptable Holding Eliquis will continue to closely monitor continue IV PPI (2) GI bleed Current Visit: Yes Status: Acute Assessment and plan: as listed above Qualifiers: GI bleed type/associated pathology: unspecified gastrointestinal hemorrhage type Qualified Code(s): K92.2 - Gastrointestinal hemorrhage, unspecified (3) A-fib Current Visit: No Status: Chronic Assessment and plan: Noted to be bradycardic holding BB holding anticoagulation given GI Bleed continue tele monitoring Qualifiers: Atrial fibrillation type: chronic Qualified Code(s): I48.2 - Chronic atrial fibrillation (4) Atherosclerosis of [place] arteries of extremities with intermittent claudication, bilateral legs Current Visit: Yes Status: Chronic Assessment and plan: Vascular consultation appreciated awaiting JONATHAN studies (5) CAD (coronary artery disease) Current Visit: No Status: Chronic Assessment and plan: holding ASA continue statin no signs of angina present at this time Qualifiers: Coronary Disease-Associated Artery/Lesion type: [place] artery [place] vs. transplanted heart: [place] heart Associated angina: angina presence unspecified Qualified Code(s): I25.10 - Atherosclerotic heart disease of [place] coronary artery without angina pectoris (6) CHF (congestive heart failure) Current Visit: No Status: Chronic Assessment and plan: No signs of acute exacerbation present will continue home medications Qualifiers: Congestive heart failure type: unspecified congestive heart failure type Congestive heart failure chronicity: acute on chronic Qualified Code(s): I50.9 - Heart failure, unspecified (7) Diabetes mellitus Current Visit: No Status: Chronic Assessment and plan: Holding oral antihyperglycemic agents continue sliding scale insulin algorithm as needed monitor FS and BG Qualifiers: Diabetes mellitus type: type 2 Diabetes mellitus complication status: with kidney complications Diabetes mellitus complication detail: with chronic kidney disease Diabetes mellitus rn advanced insulin use: without rn advanced use Chronic kidney disease stage: stage 4 (severe) Qualified Code(s): E11.22 - Type 2 diabetes mellitus with diabetic chronic kidney disease; N18.4 - Chronic kidney disease, stage 4 (severe); N18.4 - Chronic kidney disease, stage 4 ( severe); N18.4 - Chronic kidney disease, stage 4 (severe); N18.4 - Chronic kidney disease, stage 4 (severe) (8) ESRD (end stage renal disease) on dialysis Current Visit: Yes Status: Chronic Assessment and plan: Nephrology on board and consultation appreciated continue HD as per outpatient schedule (MWF) scheduled for HD today (07/17/17) (9) HTN (hypertension) Current Visit: No Status: Chronic Assessment and plan: Noted to be hypertensive this morning Restarted pt's home dose of clonidine continue Amlodipine and Lisinopril will closely monitor BP Qualifiers: Hypertension type: essential hypertension Qualified Code(s): I10 - Essential (primary) hypertension (10) DVT prophylaxis Current Visit: No Status: Acute Assessment and plan: SCD - Subjective Interval history: Patient seen and examined at bedside. Resting in bed and denies any pain at this time. Scheduled for colonoscopy today. 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 Treated with Argon Plasma coagulation Scheduled for HD today (history of ESRD on HD MWF) - Constitutional Vitals: Temp Pulse Resp BP Pulse Ox 97.3 F L 64 16 151/56 96 07/17/17 11:23 07/17/17 11:23 07/17/17 11:23 07/17/17 11:23 07/17/17 11:23 General appearance: Present: cooperative, A&O X 3, pleasant, no acute distress - Head Head exam: Present: atraumatic, normocephalic - Eye Eye exam: Present: conjuntiva pink, sclera anicteric - Respiratory Respiratory exam: Present: CTAB. Absent: accessory muscle use, rales, rhonchi, wheezes - Cardiovascular Cardiovascular exam: Present: RRR, +S1, +S2. Absent: diastolic murmur, gallop, rubs, systolic murmur - GI/Abdominal GI/Abdominal exam: Present: normal bowel sounds, soft, no peritoneal signs. Absent: distended, tenderness - Extremities Exam Extremities exam: Present: pedal edema (trace pedal edema bilaterally), warm, radial pulses palpable and symmetrical. Absent: calf tenderness - Neurological Exam Neurological exam: Present: alert, oriented X3 - Psychiatric Psychiatric exam: Present: normal affect, normal mood Internal Medicine: Result - Labs CBC & Chem 7: 07/17/17 01:21 07/17/17 01:21 Labs: Short CBC 07/16/17 07/17/17 Range/Units 15:10 01:21 WBC 6.5 (4.3-11.1) K/mcL Hgb 10.7 L 9.4 L (12.9-16.9) g/dL Hct 32.8 L 28.2 L (37.5-50.1) % Plt Count 133 L (140-400) K/mcL BMP 07/17/17 01:21 Sodium 136 Potassium 3.9 Chloride 104 Carbon Dioxide 23 BUN 40 H Creatinine 2.59 H Glucose 78 Calcium 9.0 Liver Function 07/17/17 Range/Units 01:21 Total Bilirubin 0.5 (0.2-1.2) mg/dL AST 24 (5-34) Units/L ALT 24 (0-55) Units/L Alkaline Phosphatase 84 (38-126) Units/L Albumin 3.4 L (3.5-5.0) g/dL - VTE Documentation of Mechanical Device: Intermittent pneumatic compression device Consult Discharge Plan - Plan Referrals: aMlik Roberts DO [Primary Care Provider] - 07/25/17 1:30 pm
[2017-07-17] MEDS ORDERED: 0.9 % Sodium Chloride 500 ML IVC SCH (13:15)
[2017-07-17 15:33] LABS: Hematocrit 30.2 % (37.5-50.1); Hemoglobin 10.2 g/dL (12.9-16.9)
[2017-07-17] MEDS: Furosemide 40 MG TABLET PO SCH (18:58)
[2017-07-17] MEDS ORDERED: 0.9 % Sodium Chloride 2,000 ML ONE (19:06)
[2017-07-17] MEDS: Mirtazapine 15 MG TABLET PO SCH (21:00)
[2017-07-17 21:28] LABS: % Iron Saturation 12 % (20-55); Iron 42 mcg/dL (65-175); Transferrin 247 mg/dL (174-364)
[2017-07-17 21:54] LABS: Ferritin 320 ng/ml (22-275)
--- NOTE | 2017-07-18 00:53 | Arterial Study Report ---
LE Arterial Physiologic Study Patient Name:Nino Bassett Order Number:[id number] Procedure Date:07/17/2017 Date:1940ge:77 yrs Gender:Male Lt BP:162 / mmHg Location:[facility] Room #: 2A48 [employer]:Agueda Garcia RDCS Referring MD:Nino aMki MD Reading MD:Bogdan Duke MD , FACS Primary Indications:PVD w/claudication Risk Factors Yes/No Hypertension Diabetes Smoking Current Hx of CAD/PTCA Impressions: 1) Right lower extremity waveform demonstrates normal hemodynamics. 2) Right Ankle Brachial Index is normal. 3) Overall Impression: Arterial hemodynamics are well maintained at rest. 1) Left lower extremity waveform demonstrates mildly diminished hemodynamics. 2) Left Ankle Brachial Index demonstrates mildly occlusive disease. Recommendations: After imaging the patient returned to their room. Findings LE Arterial Physiologic Exam: PVR: Right: The PVR waveforms are mildly diminished in the right . Left: The PVR waveforms are mildly diminished in the left . Prior Study: No prior study available for comparison. Segmental Pressures Side Location Pressure Index Result Right Posterior Tibial 157 0.97 Normal Right Dorsalis Pedis 147 0.91 Mildly Diminished Left Posterior Tibial 136 0.84 Mildly Diminished Left Dorsalis Pedis 111 0.69 Moderately Diminished Ankle Brachial Index Right Systolic Diastolic JONATHAN Brachial 0.97 Dorsalis Pedis 147 0.91 Posterior Tibial 157 0.97 Left Systolic Diastolic JONATHAN Brachial 162 0.84 Dorsalis Pedis 111 0.69 Posterior Tibial 136 0.84 Updated by Bogdan Duke MD, FACS on 07/18/2017 12:45:18 AM with Status of Final Bogdan Duke MD electronically signed on 07/18/2017 12:45:47 AM with status of Final
--- NOTE | 2017-07-18 06:30 | Vascular/Endovas Progress Note ---
Date of Encounter: 07/17/17 Time of Encounter: 17:10 - Assessment and plan (1) Atherosclerosis of [place] arteries of extremities with intermittent claudication, bilateral legs Current Visit: Yes Status: Chronic The patient has a history of peripheral vascular disease. He reports bilateral lower extremity calf claudication. He denies rest pain, ulceration or gangrene. He has a diminished pulse exam. His CT revealed evidence of distal aortic stenosis. He has no signs of acute limb ischemia. His ABIs were rescheduled today because he was in dialysis. (2) Diabetes mellitus Current Visit: No Status: Chronic Qualifiers: Diabetes mellitus type: type 2 Diabetes mellitus complication status: with kidney complications Diabetes mellitus complication detail: with chronic kidney disease Diabetes mellitus termite treater helper insulin use: without termite treater helper use Chronic kidney disease stage: stage 4 (severe) Qualified Code(s): E11.22 - Type 2 diabetes mellitus with diabetic chronic kidney disease; N18.4 - Chronic kidney disease, stage 4 (severe); N18.4 - Chronic kidney disease, stage 4 ( severe); N18.4 - Chronic kidney disease, stage 4 (severe); N18.4 - Chronic kidney disease, stage 4 (severe) (3) A-fib Current Visit: No Status: Chronic Qualifiers: Atrial fibrillation type: chronic Qualified Code(s): I48.2 - Chronic atrial fibrillation (4) CAD (coronary artery disease) Current Visit: No Status: Chronic Qualifiers: Coronary Disease-Associated Artery/Lesion type: [place] artery [place] vs. transplanted heart: [place] heart Associated angina: angina presence unspecified Qualified Code(s): I25.10 - Atherosclerotic heart disease of [place] coronary artery without angina pectoris (5) Chronic kidney disease Current Visit: No Status: Acute Qualifiers: Chronic kidney disease stage: on chronic dialysis Qualified Code(s): N18.6 - End stage renal disease; Z99.2 - Dependence on renal dialysis; Z99.2 - Dependence on renal dialysis; Z99.2 - Dependence on renal dialysis; Z99.2 - Dependence on renal dialysis (6) GI bleed Current Visit: Yes Status: Acute Qualifiers: GI bleed type/associated pathology: unspecified gastrointestinal hemorrhage type Qualified Code(s): K92.2 - Gastrointestinal hemorrhage, unspecified - Subjective Interval history: The patient is seen in dialysis today. He states that he is feeling better today. He denies any acute leg pain or swelling. He denies chest pain or shortness of breath. Vital Signs, Last 4 Hours Temp Pulse Resp BP Pulse Ox 07/18/17 03:34 98.3 F 76 16 167/78 97 - Physical Examination General: Present: Conversant, No Apparent Distress HEENT: Present: Pupils equal Cardiac: Present: Irregular Rhythm Lungs: Present: Normal Breath Sounds, No Wheeze, Rales, Rhonchi Neuro: Present: Alert and responsive Vascular: Present: Normal capillary refill, Pulse, diminished. Absent: Cyanosis , Edema Abdomen: Present: Soft, Non-tender - VTE Documentation of Mechanical Device: Intermittent pneumatic compression device Results 07/17/17 15:08 07/17/17 01:21 Lab Results, Last 24 hours 07/17/17 15:08 Hgb 10.2 L Hct 30.2 L Consult Discharge Plan - Plan Referrals: Malik Roberts DO [Primary Care Provider] - 07/25/17 1:30 pm
[2017-07-18 08:00] VITALS: BP 163/70
[2017-07-18] MEDS: Thiamine (B-1) 100 MG TABLET PO SCH (08:36)
[2017-07-18] MEDS: Furosemide 40 MG TABLET PO SCH (08:36)
[2017-07-18] MEDS: cloNIDine HCl 0.1 MG TABLET PO SCH (08:36)
[2017-07-18] MEDS: Insulin LISPRO 300 UNITS/3 ML VIAL SQ SCH (08:36)
[2017-07-18] MEDS: Pantoprazole 40 MG VIAL IVP SCH (08:36)
[2017-07-18] MEDS: Lisinopril 20 MG TABLET PO SCH (08:37)
[2017-07-18] MEDS: amLODIPine 5 MG TABLET PO SCH (08:37)
--- NOTE | 2017-07-18 09:51 | Nephrology Progress Note ---
Date of Encounter: 07/18/17 Time of Encounter: 09:30 - Assessment and Plan (1) ESRD (end stage renal disease) on dialysis Current Visit: Yes Status: Chronic S/P colonoscopy with negative findings. Will dialyze tomorrow in [facility] unit, keeping MWF schedule. Subjective Interval history: Sleeping. Easily arousable. Denies abdominal discomfort. States to be discharged home today. Objective - Vital Signs Vital signs: Vital Signs Temp Pulse Resp BP Pulse Ox 07/18/17 07:59 98.2 F 89 17 163/70 98 07/18/17 03:34 98.3 F 76 16 167/78 97 07/18/17 00:32 98.3 F 72 16 169/69 96 07/17/17 19:11 99.8 F H 105 16 170/72 95 07/17/17 18:50 98.4 F 18 163/71 07/17/17 18:30 169/71 07/17/17 18:00 141/75 07/17/17 17:30 148/68 07/17/17 17:00 152/61 07/17/17 16:30 152/53 07/17/17 16:00 157/79 07/17/17 15:30 171/68 07/17/17 15:00 97.5 F L 17 178/69 07/17/17 13:04 98 F 59 18 142/76 96 07/17/17 11:23 97.3 F L 64 16 151/56 96 07/17/17 10:35 60 163/64 Intake and Output 07/17/17 07/18/17 07/18/17 23:59 07:59 15:59 Intake Total 0 / 0 240 / 240 Output Total 3600 / 3600 Balance -3600 / -3600 240 / 240 Intake: Oral 0 / 0 240 / 240 Output: Urine 0 / 0 Total Dialysis (HD) Output 3600 / 3600 Other: Weight 65.2 kg Blood Glucose* 283 166 Hemodialysis Net Fluid Removed 3000 (mL) Patient Weight 07/18/17 23:59 Weight 65.2 kg - General Appearance General appearance: Present: well-developed, well-nourished, appears started age EENT: Present: mucous membranes moist Neck: Present: no JVD Respiratory: Present: clear Cardiology: Present: no edema, regular rate, regular rhythm Gastrointestinal: Present: normoactive bowel sounds, no tenderness Integumentary: Present: warm and dry Neurologic: Present: alert and oriented x3 Psychiatric: Present: mood/affect appropriate, cooperative - Lab 07/17/17 15:08 07/17/17 01:21 Most recent lab results Calcium 9.0 mg/dL (8.6-10.8) 07/17/17 01:21 - VTE Documentation of Mechanical Device: Intermittent pneumatic compression device Consult Discharge Plan - Plan Referrals: Malik Roberts DO [Primary Care Provider] - 07/25/17 1:30 pm
--- NOTE | 2017-07-18 10:44 | Discharge Summary ---
Date of Encounter: 07/18/17 Time of Encounter: 10:41 - Discharge Diagnosis (1) Melena Priority: Primary Status: Acute (2) GI bleed Priority: Primary Status: Acute Qualifiers: GI bleed type/associated pathology: unspecified gastrointestinal hemorrhage type Qualified Code(s): K92.2 - Gastrointestinal hemorrhage, unspecified (3) A-fib Priority: Secondary Status: Chronic Qualifiers: Atrial fibrillation type: chronic Qualified Code(s): I48.2 - Chronic atrial fibrillation (4) Atherosclerosis of [place] arteries of extremities with intermittent claudication, bilateral legs Priority: Secondary Status: Chronic (5) CAD (coronary artery disease) Priority: Secondary Status: Chronic Qualifiers: Coronary Disease-Associated Artery/Lesion type: [place] artery [place] vs. transplanted heart: [place] heart Associated angina: angina presence unspecified Qualified Code(s): I25.10 - Atherosclerotic heart disease of [place] coronary artery without angina pectoris (6) CHF (congestive heart failure) Priority: Secondary Status: Chronic Qualifiers: Congestive heart failure type: unspecified congestive heart failure type Congestive heart failure chronicity: acute on chronic Qualified Code(s): I50.9 - Heart failure, unspecified (7) Diabetes mellitus Priority: Secondary Status: Chronic Qualifiers: Diabetes mellitus type: type 2 Diabetes mellitus complication status: with kidney complications Diabetes mellitus complication detail: with chronic kidney disease Diabetes mellitus jail insulin use: without termite control service representative use Chronic kidney disease stage: stage 4 (severe) Qualified Code(s): E11.22 - Type 2 diabetes mellitus with diabetic chronic kidney disease; N18.4 - Chronic kidney disease, stage 4 (severe); N18.4 - Chronic kidney disease, stage 4 ( severe); N18.4 - Chronic kidney disease, stage 4 (severe); N18.4 - Chronic kidney disease, stage 4 (severe) (8) ESRD (end stage renal disease) on dialysis Priority: Secondary Status: Chronic (9) HTN (hypertension) Priority: Secondary Status: Chronic Qualifiers: Hypertension type: essential hypertension Qualified Code(s): I10 - Essential (primary) hypertension (10) DVT prophylaxis Priority: Secondary Status: Acute - Discharge Medications Home Medications: Amlodipine Besylate 10 mg PO DAILY 10/07/16 [History] Glimepiride [Amaryl] 4 mg PO BID 10/07/16 [History] Insulin Glargine,Hum.rec.anlog [Lantus Solostar] 10 unit SQ DAILY 10/07/16 [ History] Lisinopril [Zestril] 40 mg PO DAILY 10/07/16 [History] Lovastatin [Mevacor] 20 mg PO HS 10/07/16 [History] cloNIDine HCl [CloNIDine HCl] 0.1 mg PO TID 10/07/16 [History] Acetaminophen [Tylenol] 650 mg PO Q6HR PRN #60 tablet 10/08/16 [Rx] Cyanocobalamin (B-12) [Vitamin B12] 1,000 mcg PO DAILY #90 tablet 10/08/16 [Rx] Ergocalciferol (VITAMIN D2) [Vitamin D2] 50,000 unit PO QWEEK #10 capsule [Rx] Metoprolol [Lopressor] 100 mg PO BID 10/08/16 [History] Nitroglycerin 0.4 mg SL Q5MIN PRN #30 tab.subl 10/08/16 [Rx] Thiamine HCl 250 mg PO DAILY #90 tablet 10/08/16 [Rx] Albuterol Sulfate [Albuterol Inhaler] 2 puff IH Q4HR PRN 12/28/16 [History] Furosemide [Lasix] 80 mg PO TID 12/28/16 [History] Omeprazole [PriLOSEC] 20 mg PO DAILY 12/28/16 [History] hydrALAZINE [HydrALAZINE] 25 mg PO BID 12/28/16 [History] Mirtazapine [Remeron] 15 mg PO HS 07/16/17 [History] Allergies/Adverse Reactions: 3 Allergy/AdvReac Type Severity Reaction Status Date / Time No Known Allergies Allergy Verified 12/28/16 19:49 Procedures/tests Complete & Pending: Procedures Performed prior 72 hours Category Date Time Status ECG 12 lead ECG [ECG] Routine Y 07/16/17 07:59 Completed EV ankle brachial index Routine Y 07/17/17 06:40 Completed Date of admission: 07/16/17 06:49 Primary care physician: Malik Roberts Consults: 07/16/17 07:57 Consult to Gastroenterology [CONS] Routine Consulting Provider: Gastroenterology Tonya Reason for Consult: melena Call Completed: Yes Consult to Nephrology [CONS] Routine Consulting Provider: Kidney & HTN Spclst YESY Reason for Consult: ESRD on HD Call Completed: Yes 07/16/17 10:36 Consult to Vascular Surgery [CONS] Routine Consulting Provider: Vascular Surgery Tonya Reason for Consult: CAD with severe aortoiliac plaque disease on ABD CT Call Completed: Yes 07/17/17 08:45 Consult to Dialysis [CONS] ONCE Discharging clinician: Christa Alvarez Anticipated date of discharge: 07/18/17 - Patient Status Disposition: Home, Self-Care Condition: Good Functional capacity at discharge: independent ambulation Overall status at discharge: patient is back to baseline - Discharge Instructions Follow Up With: Malik Roberts DO [Primary Care Provider] - 07/22/17 1:30 pm Additional Instructions: Follow up with your primary care physician within five days after your discharge from the hospital. continue to hold your home dose of Eliquis until your follow up with your primary care physician. continue all other medications as prescribed by your primary care physician. - Diet and Activity Activity: resume usual activities as tolerated Diet: diabetic diet, low salt diet Hospital course: Mr. Bassett is a 77 year old male with PMH of ESRD on HD, DM, Afib, HTN, CAD who was admitted for melena. He had EGD and colonoscopy which was negative for any acute bleed. 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 Treated with Argon Plasma coagulation. Colonoscopy was negative for any bleed. Pt also had HD as per his outpatient HD schedule. He was agitated this morning and rushing to leave the hospital. Pt was educated to hold his eliquis until his follow up with his PCP. Pt demonstrates understanding of his diagnosis and agrees with the discharge care and plan. - Time Spent with Patient Total time spent providing and/or coordinating discharge services: Less than 30 minutes - Constitutional Vitals: Temp Pulse Resp BP Pulse Ox 98.2 F 89 17 163/70 98 07/18/17 07:59 07/18/17 07:59 07/18/17 07:59 07/18/17 07:59 07/18/17 07:59 General appearance: Present: cooperative, A&O X 3, pleasant, no acute distress - VTE Documentation of Mechanical Device: Intermittent pneumatic compression device
== END 2017-07-18 10:46 | disposition home or self-care (01) ==
LOC: EMEROO 00:45 → 2NNU 00:45 → SUATTDRO 06:49 → 2NNU 07:23 → 2ANU 11:11
PROVIDERS: ADMIT Family Medicine; ATTEND Internal Medicine

== ENCOUNTER 2017-11-23 09:40 | Observation (INO) ==
--- NOTE | 2017-11-23 10:00 | Emergency Department Note ---
Disposition Clinical Impression: NSTEMI (non-ST elevated myocardial infarction), UTI (urinary tract infection), Acute pyelonephritis, [id number] kidney injury Disposition: Admitted As Inpatient Condition: Fair General Adult HPI - General Chief complaint: ED Chest Pain Stated complaint: "chest feels hot" Time Seen by Provider: 11/23/17 09:52 Source: patient Limitations: no limitations - History of Present Illness Pain Scale: 0 - Related Data Home Medications Medication Instructions Recorded Confirmed Amlodipine Besylate 10 mg PO DAILY 10/07/16 07/16/17 Glimepiride [Amaryl] 4 mg PO BID 10/07/16 07/16/17 Insulin Glargine,Hum.rec.anlog 10 unit SQ DAILY 10/07/16 07/16/17 [Lantus Solostar] Lisinopril [Zestril] 40 mg PO DAILY 10/07/16 07/16/17 Lovastatin [Mevacor] 20 mg PO HS 10/07/16 07/16/17 cloNIDine HCl [CloNIDine HCl] 0.1 mg PO TID 10/07/16 07/16/17 Metoprolol [Lopressor] 100 mg PO BID 10/08/16 07/16/17 Albuterol Sulfate [Albuterol 2 puff IH Q4HR PRN 12/28/16 07/16/17 Inhaler] Furosemide [Lasix] 80 mg PO TID 12/28/16 07/16/17 Omeprazole [PriLOSEC] 20 mg PO DAILY 12/28/16 07/16/17 hydrALAZINE [HydrALAZINE] 25 mg PO BID 12/28/16 07/16/17 Mirtazapine [Remeron] 15 mg PO HS 07/16/17 07/16/17 Previous Rx's Medication Instructions Recorded Acetaminophen [Tylenol] 650 mg PO Q6HR PRN #60 tablet 10/08/16 Cyanocobalamin (B-12) [Vitamin B12] 1,000 mcg PO DAILY #90 tablet 10/08/16 Ergocalciferol (VITAMIN D2) 50,000 unit PO QWEEK #10 capsule 10/08/16 [Vitamin D2] Nitroglycerin 0.4 mg SL Q5MIN PRN #30 tab.subl 10/08/16 Thiamine HCl 250 mg PO DAILY #90 tablet 10/08/16 Allergies Allergy/AdvReac Type Severity Reaction Status Date / Time No Known Allergies Allergy Verified 12/28/16 19:49 Past Medical History - Past Medical History Medical history: Reports: coronary artery disease, diabetes, hyperlipidemia, hypertension, myocardial infarction, renal disease Surgical history: Reports: coronary bypass (CABG), pacemaker/AICD Psychiatric history: Reports: no psych history - Social History Smoking Status: Current every day smoker Smokeless Tobacco Status: No Alcohol use: Reports: none Drug use: Reports: none Physical Exam - General Limitations: no limitations General appearance: alert Course Vital Signs Temperature 98 F 11/23/17 09:47 Pulse Rate 68 11/23/17 09:47 Respiratory Rate 18 11/23/17 09:47 Blood Pressure 173/73 11/23/17 09:47 O2 Sat by Pulse Oximetry 96 11/23/17 09:47 Temperature 98 F 11/23/17 09:47 Pulse Rate 62 11/23/17 11:05 Respiratory Rate 14 11/23/17 11:05 Blood Pressure 151/94 11/23/17 11:05 O2 Sat by Pulse Oximetry 94 11/23/17 11:05 Oxygen Delivery Oxygen Delivery Room Air Medical Decision Making - Lab Data Result diagrams: 11/23/17 10:21 11/23/17 10:21 Lab Results 11/23/17 11/23/17 11/23/17 Range/Units 10:20 10:21 10:21 WBC (4.3-11.1) K/mcL RBC (4.19-5.50) M/mcL Hgb (12.9-16.9) g/dL Hct (37.5-50.1) % MCV (83.0-100.0) fL MCH (28.0-33.3) pg MCHC (31.6-35.5) g/dL RDW (11.5-14.5) % Plt Count (140-400) K/mcL MPV (9.4-12.4) fL Immature Gran % (0-4) % Seg Neutrophils % % Lymphocytes % % Monocytes % % Eosinophils % % Basophils % % Neutrophils # (1.6-8.9) K/mcL Lymphocytes # (0.6-4.6) K/mcL Monocytes # (0.0-1.3) K/mcL Eosinophils # (0.0-0.6) K/mcL Basophils # (0.0-0.2) K/mcL APTT 33.4 (26.0-36.0) Seconds Sodium (136-145) mEq/L Potassium (3.5-5.1) mEq/L Chloride (98-107) mEq/L Carbon Dioxide (23-29) mEq/L BUN (8-23) mg/dL Creatinine (0.70-1.30) mg/dL Est GFR ( Amer) (> 60) Est GFR (Non-Af Amer) (> 60) BUN/Creatinine Ratio (6-26) Glucose (70-105) mg/dL Calculated Osmolality (280-300) Lactic Acid 1.0 (0.5-2.2) mmol/L Calcium (8.6-10.3) mg/dL Troponin I (< 0.04) ng/mL Urine Color Yellow (Yellow) Urine Clarity Cloudy A (Clear) Urine pH 7.5 (5.0-8.0) pH Units Ur Specific [place] 1.012 (1.010-1.025) Urine Protein 100 H (Neg-Trace) mg/dL Urine Glucose (UA) Normal (Normal) mg/dL Urine Ketones Negative (Negative) mg/dL Urine Blood Small H (Negative) Urine Nitrite Negative (Negative) Urine Bilirubin Negative (Negative) Urine Urobilinogen Normal (Normal) mg/dL Ur Leukocyte Esterase Large H (Negative) Urine Microscopic RBC 3-5 H (0-3) per hpf Urine Microscopic WBC 50-100 H (0-3) per hpf Ur Squamous Epith Cells Many H (None-Few) per lpf Urine Bacteria Many H (None-Few) per hpf Hyaline Casts None Seen (None-Few) per lpf Ur Culture Indicated? NO. (NO) 11/23/17 11/23/17 11/23/17 Range/Units 10:21 10:21 10:21 WBC 7.5 (4.3-11.1) K/mcL RBC 3.69 L (4.19-5.50) M/mcL Hgb 12.0 L (12.9-16.9) g/dL Hct 36.9 L (37.5-50.1) % MCV 100.0 (83.0-100.0) fL MCH 32.5 (28.0-33.3) pg MCHC 32.5 (31.6-35.5) g/dL RDW 14.7 H (11.5-14.5) % Plt Count 228 (140-400) K/mcL MPV 9.9 (9.4-12.4) fL Immature Gran % 0.4 (0-4) % Seg Neutrophils % 74.3 % Lymphocytes % 16.5 % Monocytes % 7.4 % Eosinophils % 0.9 % Basophils % 0.5 % Neutrophils # 5.5 (1.6-8.9) K/mcL Lymphocytes # 1.2 (0.6-4.6) K/mcL Monocytes # 0.6 (0.0-1.3) K/mcL Eosinophils # 0.1 (0.0-0.6) K/mcL Basophils # 0.0 (0.0-0.2) K/mcL APTT (26.0-36.0) Seconds Sodium 136 (136-145) mEq/L Potassium 4.1 (3.5-5.1) mEq/L Chloride 97 L (98-107) mEq/L Carbon Dioxide 28 (23-29) mEq/L BUN 29 H (8-23) mg/dL Creatinine 3.05 H (0.70-1.30) mg/dL Est GFR ( Amer) 24 L (> 60) Est GFR (Non-Af Amer) 20 L (> 60) BUN/Creatinine Ratio 10 (6-26) Glucose 62 L (70-105) mg/dL Calculated Osmolality 286 (280-300) Lactic Acid (0.5-2.2) mmol/L Calcium 9.2 (8.6-10.3) mg/dL Troponin I 0.11 H* (< 0.04) ng/mL Urine Color (Yellow) Urine Clarity (Clear) Urine pH (5.0-8.0) pH Units Ur Specific [place] (1.010-1.025) Urine Protein (Neg-Trace) mg/dL Urine Glucose (UA) (Normal) mg/dL Urine Ketones (Negative) mg/dL Urine Blood (Negative) Urine Nitrite (Negative) Urine Bilirubin (Negative) Urine Urobilinogen (Normal) mg/dL Ur Leukocyte Esterase (Negative) Urine Microscopic RBC (0-3) per hpf Urine Microscopic WBC (0-3) per hpf Ur Squamous Epith Cells (None-Few) per lpf Urine Bacteria (None-Few) per hpf Hyaline Casts (None-Few) per lpf Ur Culture Indicated? (NO) Attestation Statement - Attestation Attestation: I examined this patient and my medical decision-making was reviewed with the Resident Physician. I agree with the documented findings, disposition and treatment plan as described except to the extent set forth below. [id number] time provided Patient seen upon arrival to the treatment area in conjunction with the resident physician Dr. Gatica. He does not appear in any acute distress. Home medication list reviewed by me. Triage note reviewed by me. ECG ordered and reviewed by me 11:39: Patient admitted to the medicine service for NSTEMI in the setting of CKD. Also has a UTI.
--- NOTE | 2017-11-23 10:16 | Emergency Department Note ---
Disposition Clinical Impression: NSTEMI (non-ST elevated myocardial infarction), History of renal dialysis UTI (urinary tract infection) Qualifiers: Urinary tract infection type: acute pyelonephritis Qualified Code(s): N10 - Acute pyelonephritis Disposition: Admitted As Inpatient Condition: Fair Time of Disposition: 10:57 General Adult HPI - General Chief complaint: ED Chest Pain Stated complaint: "chest feels hot" Time Seen by Provider: 11/23/17 09:52 Source: patient Limitations: no limitations Nursing Notes Reviewed: Yes Vital Signs Reviewed: Yes - History of Present Illness HPI Narrative: 77-year-old male complains of having frequent intermittent periods of sensation of heat to skin of his chest back, and face. Patient denies any pain or pressure. He states he feels clammy afterwards but is not sweating. Patient was seen at [facility] ED 3 days ago and placed on Macrobid for UTI after he was given a dose of levofloxacin in the department. He had worsening leg swelling at that time and was given Lasix. He was told that his urinary tract infection could be the source of the sensation. Patient's history of A. fib, CHF, MD status post CABG, Pain Scale: 0 - Related Data Home Medications Medication Instructions Recorded Confirmed Amlodipine Besylate 10 mg PO DAILY 10/07/16 07/16/17 Glimepiride [Amaryl] 4 mg PO BID 10/07/16 07/16/17 Insulin Glargine,Hum.rec.anlog 10 unit SQ DAILY 10/07/16 07/16/17 [Lantus Solostar] Lisinopril [Zestril] 40 mg PO DAILY 10/07/16 07/16/17 Lovastatin [Mevacor] 20 mg PO HS 10/07/16 07/16/17 cloNIDine HCl [CloNIDine HCl] 0.1 mg PO TID 10/07/16 07/16/17 Metoprolol [Lopressor] 100 mg PO BID 10/08/16 07/16/17 Albuterol Sulfate [Albuterol 2 puff IH Q4HR PRN 12/28/16 07/16/17 Inhaler] Furosemide [Lasix] 80 mg PO TID 12/28/16 07/16/17 Omeprazole [PriLOSEC] 20 mg PO DAILY 12/28/16 07/16/17 hydrALAZINE [HydrALAZINE] 25 mg PO BID 12/28/16 07/16/17 Mirtazapine [Remeron] 15 mg PO HS 07/16/17 07/16/17 Cilostazol [Cilostazol] 50 mg PO BID 11/23/17 11/23/17 Insulin Glargine,Hum.rec.anlog 12 unit SQ QAM 11/23/17 11/23/17 [Lantus Solostar] Sevelamer [Renvela] 1,600 mg PO TIDWM 11/23/17 11/23/17 Temazepam [Restoril] 30 mg PO HS 11/23/17 11/23/17 Zolpidem Tartrate [Zolpidem 5 mg PO HS PRN 11/23/17 11/23/17 Tartrate] Previous Rx's Medication Instructions Recorded Acetaminophen [Tylenol] 650 mg PO Q6HR PRN #60 tablet 10/08/16 Nitroglycerin 0.4 mg SL Q5MIN PRN #30 tab.subl 10/08/16 Allergies Allergy/AdvReac Type Severity Reaction Status Date / Time No Known Allergies Allergy Verified 12/28/16 19:49 Constitutional: Denies: fever, chills, weakness Eyes: Denies: vision change Cardiovascular: Denies: chest pain, palpitations Respiratory: Denies: cough, dyspnea, wheezes Gastrointestinal: Denies: abdominal pain, nausea, vomiting, diarrhea Past Medical History - Past Medical History Attestation: Yes The following information was validated with the patient. Source: patient, nursing notes reviewed Medical history: Reports: coronary artery disease, diabetes, hyperlipidemia, hypertension, myocardial infarction, renal disease Surgical history: Reports: coronary bypass (CABG), pacemaker/AICD Psychiatric history: Reports: no psych history - Social History Smoking Status: Current every day smoker Smokeless Tobacco Status: No Alcohol use: Reports: none Drug use: Reports: none Physical Exam Vital Signs Temperature 98 F 11/23/17 09:47 Pulse Rate 68 11/23/17 09:47 Respiratory Rate 18 11/23/17 09:47 Blood Pressure 173/73 11/23/17 09:47 O2 Sat by Pulse Oximetry 96 11/23/17 09:47 Temperature 98 F 11/23/17 09:47 Pulse Rate 62 11/23/17 10:15 Respiratory Rate 14 11/23/17 10:15 Blood Pressure 142/69 11/23/17 10:15 O2 Sat by Pulse Oximetry 97 11/23/17 10:15 Oxygen Delivery Oxygen Delivery Room Air CONSTITUTIONAL: Well-appearing; well-nourished; A&O X 3, in no apparent distress HEAD: Normocephalic; atraumatic EYES: PERRL, no scleral icterus NOSE: The nose is normal in appearance without rhinorrhea NECK: No JVD or distended neck veins RESP: Normal chest excursion with respiration; breath sounds clear and equal bilaterally; no wheezes, rhonchi, or rales CARD: Regular rhythm, without murmurs, rub or gallop ABD: Non-distended; non-tender, soft, without rigidity, rebound or guarding,no pulsatile mass CHEST: No pain with palpation SKIN: Normal for age and race; warm and dry without diaphoresis EXTREMITIES: Pulses are 2 plus and equal times 4 extremities, no peripheral edema or calf muscle pain - General Limitations: no limitations General appearance: alert Course - Reevaluation(s) Reevaluation #1: Patient was offered nitroglycerin but was ordered at 1116 hrs. The patient refused stating that he was not in any pain. He is currently prepped for going for inpatient therapy and is complaining of pain. Patient is getting nitroglycerin now. Time: 12:19 - Consultations Consultation #1: Lab: Critical high for Elevated troponin of 0.11 Time: 10:50 Vital Signs Temperature 98 F 11/23/17 09:47 Pulse Rate 68 11/23/17 09:47 Respiratory Rate 18 11/23/17 09:47 Blood Pressure 173/73 11/23/17 09:47 O2 Sat by Pulse Oximetry 96 11/23/17 09:47 Temperature 98.0 F 11/23/17 13:17 Pulse Rate 64 11/23/17 13:17 Respiratory Rate 18 11/23/17 13:17 Blood Pressure 146/68 11/23/17 13:17 O2 Sat by Pulse Oximetry 99 11/23/17 13:17 Oxygen Delivery Oxygen Delivery Room Air Medical Decision Making - MDM Narrative Medical decision making narrative: Sensation of skin pain burning sensation across chest back and face possible atypical chest pain for ACS/MD, possible fever like symptoms from UTI. Patient is currently high risk for heart score 6. Patient's troponin came back critical high 0.11. I has no signs of ischemia on EKG. Currently in A. fib at a rate of 60 bpm. Patient also has acute worsening chronic kidney injury. However my nurse informing when she went to place an IV Patient stated not to use his left arm because he has a fistula for dialysis. Patient is receiving dialysis Saturday and Saturday. Patient's currently on Elpquis, and has been given aspirin 324 mg orally. Nitroglycerin was ordered for his chest discomfort. Patient will be admitted for NSTEMI. Patient has been informed of his lab results and my decision for admission for continuation of care, and patient understands and agrees with the decision to admit. Dr. Leyva the hospitalist has accepted the patient for admission in stable condition - Lab Data Lab results reviewed: Yes I reviewed the patient's lab results. Lab results narrative: Short CBC 11/23/17 Range/Units 10:21 WBC 7.5 (4.3-11.1) K/mcL Hgb 12.0 L (12.9-16.9) g/dL Hct 36.9 L (37.5-50.1) % Plt Count 228 (140-400) K/mcL Neutrophils # 5.5 (1.6-8.9) K/mcL BMP 11/23/17 Range/Units 10:21 Sodium 136 (136-145) mEq/L Potassium 4.1 (3.5-5.1) mEq/L Chloride 97 L (98-107) mEq/L Carbon Dioxide 28 (23-29) mEq/L BUN 29 H (8-23) mg/dL Creatinine 3.05 H (0.70-1.30) mg/dL Glucose 62 L (70-105) mg/dL Calcium 9.2 (8.6-10.3) mg/dL Cardiac Enzymes 11/23/17 Range/Units 10:21 Troponin I 0.11 H* (< 0.04) ng/mL Urine 11/23/17 Range/Units 10:20 Urine Color Yellow (Yellow) Urine Clarity Cloudy A (Clear) Urine pH 7.5 (5.0-8.0) pH Units Ur Specific [place] 1.012 (1.010-1.025) Urine Protein 100 H (Neg-Trace) mg/dL Urine Glucose (UA) Normal (Normal) mg/dL Result diagrams: 11/23/17 10:21 11/23/17 10:21 Lab Results 11/23/17 11/23/17 11/23/17 Range/Units 10:20 10:21 10:21 WBC (4.3-11.1) K/mcL RBC (4.19-5.50) M/mcL Hgb (12.9-16.9) g/dL Hct (37.5-50.1) % MCV (83.0-100.0) fL MCH (28.0-33.3) pg MCHC (31.6-35.5) g/dL RDW (11.5-14.5) % Plt Count (140-400) K/mcL MPV (9.4-12.4) fL Immature Gran % (0-4) % Seg Neutrophils % % Lymphocytes % % Monocytes % % Eosinophils % % Basophils % % Neutrophils # (1.6-8.9) K/mcL Lymphocytes # (0.6-4.6) K/mcL Monocytes # (0.0-1.3) K/mcL Eosinophils # (0.0-0.6) K/mcL Basophils # (0.0-0.2) K/mcL APTT 33.4 (26.0-36.0) Seconds Sodium (136-145) mEq/L Potassium (3.5-5.1) mEq/L Chloride (98-107) mEq/L Carbon Dioxide (23-29) mEq/L BUN (8-23) mg/dL Creatinine (0.70-1.30) mg/dL Est GFR ( Amer) (> 60) Est GFR (Non-Af Amer) (> 60) BUN/Creatinine Ratio (6-26) Glucose (70-105) mg/dL Calculated Osmolality (280-300) Lactic Acid 1.0 (0.5-2.2) mmol/L Calcium (8.6-10.3) mg/dL Troponin I (< 0.04) ng/mL Urine Color Yellow (Yellow) Urine Clarity Cloudy A (Clear) Urine pH 7.5 (5.0-8.0) pH Units Ur Specific [place] 1.012 (1.010-1.025) Urine Protein 100 H (Neg-Trace) mg/dL Urine Glucose (UA) Normal (Normal) mg/dL Urine Ketones Negative (Negative) mg/dL Urine Blood Small H (Negative) Urine Nitrite Negative (Negative) Urine Bilirubin Negative (Negative) Urine Urobilinogen Normal (Normal) mg/dL Ur Leukocyte Esterase Large H (Negative) Urine Microscopic RBC 3-5 H (0-3) per hpf Urine Microscopic WBC 50-100 H (0-3) per hpf Ur Squamous Epith Cells Many H (None-Few) per lpf Urine Bacteria Many H (None-Few) per hpf Hyaline Casts None Seen (None-Few) per lpf Ur Culture Indicated? NO. (NO) 11/23/17 11/23/17 11/23/17 Range/Units 10:21 10:21 10:21 WBC 7.5 (4.3-11.1) K/mcL RBC 3.69 L (4.19-5.50) M/mcL Hgb 12.0 L (12.9-16.9) g/dL Hct 36.9 L (37.5-50.1) % MCV 100.0 (83.0-100.0) fL MCH 32.5 (28.0-33.3) pg MCHC 32.5 (31.6-35.5) g/dL RDW 14.7 H (11.5-14.5) % Plt Count 228 (140-400) K/mcL MPV 9.9 (9.4-12.4) fL Immature Gran % 0.4 (0-4) % Seg Neutrophils % 74.3 % Lymphocytes % 16.5 % Monocytes % 7.4 % Eosinophils % 0.9 % Basophils % 0.5 % Neutrophils # 5.5 (1.6-8.9) K/mcL Lymphocytes # 1.2 (0.6-4.6) K/mcL Monocytes # 0.6 (0.0-1.3) K/mcL Eosinophils # 0.1 (0.0-0.6) K/mcL Basophils # 0.0 (0.0-0.2) K/mcL APTT (26.0-36.0) Seconds Sodium 136 (136-145) mEq/L Potassium 4.1 (3.5-5.1) mEq/L Chloride 97 L (98-107) mEq/L Carbon Dioxide 28 (23-29) mEq/L BUN 29 H (8-23) mg/dL Creatinine 3.05 H (0.70-1.30) mg/dL Est GFR ( Amer) 24 L (> 60) Est GFR (Non-Af Amer) 20 L (> 60) BUN/Creatinine Ratio 10 (6-26) Glucose 62 L (70-105) mg/dL Calculated Osmolality 286 (280-300) Lactic Acid (0.5-2.2) mmol/L Calcium 9.2 (8.6-10.3) mg/dL Troponin I 0.11 H* (< 0.04) ng/mL Urine Color (Yellow) Urine Clarity (Clear) Urine pH (5.0-8.0) pH Units Ur Specific [place] (1.010-1.025) Urine Protein (Neg-Trace) mg/dL Urine Glucose (UA) (Normal) mg/dL Urine Ketones (Negative) mg/dL Urine Blood (Negative) Urine Nitrite (Negative) Urine Bilirubin (Negative) Urine Urobilinogen (Normal) mg/dL Ur Leukocyte Esterase (Negative) Urine Microscopic RBC (0-3) per hpf Urine Microscopic WBC (0-3) per hpf Ur Squamous Epith Cells (None-Few) per lpf Urine Bacteria (None-Few) per hpf Hyaline Casts (None-Few) per lpf Ur Culture Indicated? (NO) - Radiology Data Radiology results reviewed: Yes I reviewed the patient's radiology results. Chest X-Ray 11/23/17 10:08 IMPRESSION: 1. No acute cardiopulmonary disease. D/ / 11/23/2017 10:49:28 Bhumika Lan MD / [facility] Interpreting Provider: Bhumika Lan MD - EKG Data EKG #1 EKG attestation: Yes I reviewed and interpreted this EKG. EKG results narrative: EKG taken at 11/23/2017 at 1006 hrs. shows A. fib at a rate of 60 bpm with no acute ST elevations of depressions in many leads, widened QT prolonged condition. The paced rhythm.. His EKG dated 07/16/2017 also shows A. fib slow ventricular response at a rate of 46. No acute ST elevations or depressions and any leads. Heart Score - Score History: Slightly Suspicious EKG: Non Specific repolarisation Disturbance Age: Greater than 65 Risk Factors: Equal/Greater than 3 risk factor or history of atherosclerotic disease Troponin: 1-3x normal limit HEART Score Total: 6
[2017-11-23 10:26] LABS: Bilirubin,Urine Negative (Negative); Blood,Urine Small (Negative); Clarity,Urine Cloudy (Clear); Color,Urine Yellow (Yellow); Glucose,Urine (UA) Normal (Normal); Ketones,Urine Negative (Negative); Leukocyte Esterase,Urine Large (Negative); Nitrite,Urine Negative (Negative); PH,Urine 7.5 pH Units (5.0-8.0); Protein,Urine 100 mg/dL (Neg-Trace); Specific Gravity,Urine 1.012 (1.010-1.025); Urobilinogen,Urine Normal (Normal)
[2017-11-23 10:28] LABS: Bacteria,Urine Many per hpf (None-Few); Hyaline Casts,Urine None Seen per lpf (None-Few); Squamous Epithelial Cell,Urine Many per lpf (None-Few); WBC,Urine 50-100 per hpf (0-3)
[2017-11-23 10:31] LABS: Basophils % 0.5 %; Eosinophils # 0.1 K/mcL (0.0-0.6); Eosinophils % 0.9 %; Hematocrit 36.9 % (37.5-50.1); Immature Granulocytes % 0.4 % (0-4); Lymphocytes # 1.2 K/mcL (0.6-4.6); Lymphocytes % 16.5 %; Mean Corpuscular HGB Conc 32.5 g/dL (31.6-35.5); Mean Corpuscular Hemoglobin 32.5 pg (28.0-33.3); Mean Platelet Volume 9.9 fL (9.4-12.4); Monocytes # 0.6 K/mcL (0.0-1.3); Monocytes % 7.4 %; Neutrophils # 5.5 K/mcL (1.6-8.9); Platelet Count 228 K/mcL (140-400); Red Blood Count 3.69 M/mcL (4.19-5.50); Red Cell Distribution Width 14.7 % (11.5-14.5); Segmented Neutrophils % 74.3 %
[2017-11-23 10:41] LABS: Calcium 9.2 mg/dL (8.6-10.3); Potassium 4.1 mEq/L (3.5-5.1)
[2017-11-23] MEDS ORDERED: Aspirin 81 MG TAB.CHEW PO ONE (10:51)
[2017-11-23] MEDS ORDERED: cefTRIAXone 1,000 MG in Water for inj. (sterile) 20 ML 10 ML IVP ONE (10:52)
[2017-11-23] MEDS: Nitroglycerin 0.4 MG TAB.SUBL SL PRN ×2 (12:22→12:28)
[2017-11-23] MEDS ORDERED: *HR* HYDROcodone/Acet 5/325 mg TABLET PO PRN (13:10)
[2017-11-23] MEDS ORDERED: Acetaminophen 325 MG TABLET PO PRN (13:10)
[2017-11-23] MEDS ORDERED: Naloxone 0.4 MG/ML INJ IVP PRN (13:10)
[2017-11-23] MEDS ORDERED: Nitroglycerin 0.4 MG TAB.SUBL SL PRN (13:15)
[2017-11-23] MEDS ORDERED: Dextrose Gel 15 GM/37.5 ML TUBE PO PRN ×2 (13:17)
[2017-11-23] MEDS ORDERED: *HR* Dextrose 50 % in Water (Syg) 50 ML SYRINGE IVP PRN (13:17)
[2017-11-23] MEDS ORDERED: D5% in Water 1,000 ML IVC PRN (13:17)
--- NOTE | 2017-11-23 14:34 | Internal Med History&Physical ---
<Jerrell Orellana - Last Filed: 11/23/17 21:30> Date of Encounter: 11/23/17 Time of Encounter: 12:30 Assessment and Plan (1) Sensation disturbance of skin Current visit: Yes Status: Acute Pt. reports feeling of extreme heat on face and head w/radiation to upper back and neck. Concern is for ACS r/o d/t pts. hx. Denies chest pain. States sx for 2 -3 weeks w/worsening over past two days. Also reports feeling of clamminess. Pt. has GERD and current UTI. Initial troponin 0.11. Second troponin 0.08. Will trend x1. Nitro given in ED which pt. reports did not help w/sx. Echocardiogram ordered. Continuous cardiac telemetry. Supplemental O2 w/titration and SpO2 monitoring. Aspirin daily. Lovastatin 40 mg PO given once and to continue 20 mg HS tomorrow. Cardiology consult ordered and discussed w/Dr. Lopez and I appreciate the consult. Recommendation for CT which was ordered which shows no acute intracranial abnormality, mild age-appropriate diffuse atrophy with minimal chronic small vessel ischemic changes, and old lacunar infarct in the left basal ganglia. Pt. discussed w/Dr. Leyva who is in agreement w/plan of care. Pt. is high risk for further morbidity d/t current sx, hx of CAD and cardiac hx, current unresolved UTI, and risk factors. Observation. (2) UTI (urinary tract infection) Current visit: Yes Status: Acute Acute UTI dx 3 days ago at [facility]. Pt. placed on PO Bactrim and finished half of the dosing. U/A here is still indicative for UTI so pt. started on ceftriaxone in ED @ 1,000 mg. Will continue @ 2,000 IVPB Q24 for infection coverage based on pts. current renal function per pharmacy. Monitor pt. and f/u labs. Qualifiers: Urinary tract infection type: acute pyelonephritis Qualified Code(s): N10 - Acute pyelonephritis (3) HTN (hypertension) Current visit: Yes Status: Chronic Hx of chronic HTN. Monitor pt. and VS. Continue pts. amlodipine, lisinopril, metoprolol, and hydralazine. Qualifiers: Hypertension type: essential hypertension Qualified Code(s): I10 - Essential (primary) hypertension (4) HLD (hyperlipidemia) Current visit: Yes Status: Chronic Hx of chronic HLD. Lipid panel in a.m. labs. Continue pts. Lovastatin. 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 Hold oral medication, continue pts. AM and PM insulin, and add low- dose correction insulin sliding scale w/hypoglycemic protocol. BG checks ACHS. A1c in a.m. labs. 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 Pacemaker/AICD in place. Continuous cardiac telemetry. Qualifiers: Atrial fibrillation type: chronic Qualified Code(s): I48.2 - Chronic atrial fibrillation (7) CAD (coronary artery disease) Current visit: Yes Status: Chronic Hx of chronic CAD with VT in 1999 and possible stent x1 (pt. unsure) and CABG ( double bypass) in 1992. Continue pts. Amlodipine, Lisinopril, Lovastatin, Lopressor, Hydralazine, and aspirin therapy. Qualifiers: Coronary Disease-Associated Artery/Lesion type: [place] artery [place] vs. transplanted heart: [place] heart Associated angina: angina presence unspecified Qualified Code(s): I25.10 - Atherosclerotic heart disease of [place] coronary artery without angina pectoris (8) ESRD (end stage renal disease) on dialysis Current visit: Yes Status: Chronic Hx of chronic ESRD on dialysis. Pt. reports he is dialyzed [facility] in [place] at [facility]. Was dialyzed yesterday. Nephrology consult ordered and discussed w/Dr. Hardy for possible inpatient dialysis based on LOS and I appreciate the consult. Renal diet. Monitor I&O and daily weight. Will use IV fluids judiciously if warranted. Avoid nephrotoxins. (9) DVT prophylaxis Current visit: Yes Status: Acute Heparin 5,00 units SQ Q8 for DVT prophylaxis. Monitor pt. for signs of bleeding. Internal Medicine - H&P: HPI Chief complaint: Feeling of heat on face and head w/hx of VT Admitted From: Emergency Dept Plans for Post Hospital Care: Home History of present illness: Mr. Bassett is a 77 year old male with medical hx of CAD, diabetes controlled with insulin and oral antihyperglycemic medications, hyperlipidemia, hypertension, previous myocardial infarction in 2000 with possible stent 1 ( patient unsure), and ESRD on dialysis presents from the ED with chief complaint of feeling of heat on face and head w/radiation to upper back and neck for the past 2-3 weeks intermittently, now more constant. Pt. denies actual chest pain. Pt. states he also has feeling of clamminess but is not actually clammy during episodes. Reports UTI dx at [facility] in [place] 3 days ago and placed on PO Macrobid. Reports bilateral chronic LE edema, sore on left buttock, redness over coccyx, and cough but denies fever, chills, nausea, vomiting, headache, changes in vision, numbness, tingling, chest pain, shortness of breath, abdominal pain, diarrhea, constipation, dizziness, lightheadedness, pre-syncope , or syncope. Past Med Surg Social Fam HX - Past Medical History Source: patient, old records reviewed Medical history: coronary artery disease, diabetes (Insulin and oral), hyperlipidemia, hypertension, myocardial infarction (1999 w/possible stent x1), renal disease (ESRD on dialysis M & [facility]) Psychiatric history: no psych history - Past Surgical History Surgical History: coronary bypass (CABG) (Double in 1992), pacemaker/AICD - Social History Smoking Status: Current every day smoker Packs per day: 5-6 cigarettes/day, down from 1 PPD Smokeless Tobacco Status: No Alcohol use: none Drug use: none Occupational status: employed Current living situation: Home Activity Level: Independent ambulation, Very active Recent Out of Country Travel Within the Last 8 Weeks: No Exposure or Possible Exposure to Illness During Travel: No - Family History Mother Adopted: [place]: Tana Bassett Race: Family Member Ethnicity: Non- Living Status: Age at : 68 Cause of : Lung cancer Hx Family Cardiac Disorders: Yes (HTN) Hx Family Cancer: Yes (Lung) Hx Family Endocrine Disorder: Yes (DM) Father Race: Family Member Ethnicity: Non- Living Status: Age at : 88 Cause of : Old age Brother Race: Family Member Ethnicity: Non- Living Status: Age at : 53 Cause of : Metastatic skin cancer Hx Family Cancer: Yes (Basal cell carcinoma) Sister Race: Family Member Ethnicity: Non- Living Status: Still Living Hx Family Medical Disorders: No Internal Medicine - H&P: Meds Amlodipine Besylate 10 mg PO DAILY 10/07/16 [History] Glimepiride [Amaryl] 4 mg PO BID 10/07/16 [History] Insulin Glargine,Hum.rec.anlog [Lantus Solostar] 10 unit SQ HS 10/07/16 [History ] Lisinopril [Zestril] 40 mg PO DAILY 10/07/16 [History] Lovastatin [Mevacor] 20 mg PO HS 10/07/16 [History] cloNIDine HCl [CloNIDine HCl] 0.1 mg PO TID 10/07/16 [History] Acetaminophen [Tylenol] 650 mg PO Q6HR PRN #60 tablet 10/08/16 [Rx] Metoprolol [Lopressor] 100 mg PO BID 10/08/16 [History] Nitroglycerin 0.4 mg SL Q5MIN PRN #30 tab.subl 10/08/16 [Rx] Albuterol Sulfate [Albuterol Inhaler] 2 puff IH Q4HR PRN 12/28/16 [History] Furosemide [Lasix] 80 mg PO TID 12/28/16 [History] Omeprazole [PriLOSEC] 20 mg PO DAILY 12/28/16 [History] hydrALAZINE [HydrALAZINE] 25 mg PO BID 12/28/16 [History] Mirtazapine [Remeron] 15 mg PO HS 07/16/17 [History] Cilostazol [Cilostazol] 50 mg PO BID 11/23/17 [History] Insulin Glargine,Hum.rec.anlog [Lantus Solostar] 12 unit SQ QAM 11/23/17 [ History] Sevelamer [Renvela] 1,600 mg PO TIDWM 11/23/17 [History] Temazepam [Restoril] 30 mg PO HS 11/23/17 [History] Zolpidem Tartrate [Zolpidem Tartrate] 5 mg PO HS PRN 11/23/17 [History] 3 Allergy/AdvReac Type Severity Reaction Status Date / Time No Known Allergies Allergy Verified 12/28/16 19:49 All Systems PM: A 10-system review of systems was performed and is negative for pertinent findings except as documented above in the HPI. - Constitutional Constitutional: as per HPI, other (Feeling of heat on face and head, upper back , and neck), no chills, no fever(s), no night sweats - EENT Eyes: no change in vision, no discharge, no pain, no photophobia Ears: no ear discharge, no ear pain, no tinnitus Nose, mouth and throat: no dysphagia, no nasal discharge, no neck pain, no sore throat - Breasts Breasts: as per HPI - Cardiovascular Cardiovascular ROS IM: as per HPI, diaphoresis (Feeling of clamminess but not actually clammy), edema (Chronic bilateral pedal edema of LEs), no chest pain, no dyspnea, no lightheadedness, no palpitations, no syncope - Respiratory Respiratory: as per HPI, cough, wheezing, no dyspnea, no excessive phlegm production - Gastrointestinal Gastrointestinal: no abdominal pain, no diarrhea, no hematemesis, no hematochezia, no melena, no nausea, no vomiting - Genitourinary Genitourinary ROS male: as per HPI - Musculoskeletal Musculoskeletal ROS IM: no numbness, no tingling - Integumentary Integumentary IM: as per HPI, erythema (Coccyx area), sores (Left upper buttock) , no rash, no unusual bruising - Neurological Neurological ROS: as per HPI, burning sensations (To face, head, upper back, and neck), no confusion, no convulsions, no focal weakness, no numbness, no tingling, no tremor(s) - Psychiatric Psychiatric: as per HPI - Endocrine Endocrine IM: as per HPI - Hematologic/Lymphatic Hematologic/Lymphatic: no easy bruising - Allergic/Immunologic Allergic/Immunologic: as per HPI - Constitutional Vitals: Temp Pulse Resp BP Pulse Ox 98.0 F 64 18 146/68 99 11/23/17 13:17 11/23/17 13:17 11/23/17 13:17 11/23/17 13:17 11/23/17 13:17 General appearance: Present: cooperative, mild distress (Reports heat on face and head 05/16), A&O X 3, pleasant, answers questions appropriately - Head Head exam: Present: atraumatic, normal inspection, normocephalic - Eye Eye exam: Present: PERRL, conjuntiva pink, sclera anicteric Pupils: Present: PERRL - ENT ENT exam: Present: normal exam - Neck Neck exam general surgery: Present: normal inspection, supple, trachea midline. Absent: lymphadenopathy - Respiratory Respiratory exam: Present: CTAB. Absent: accessory muscle use, rales, rhonchi, wheezes - Cardiovascular Cardiovascular exam: Present: irregular rhythm (Atrial fibrillation). Absent: diastolic murmur, gallop, rubs, systolic murmur - GI/Abdominal GI/Abdominal exam: Present: normal bowel sounds, soft, no peritoneal signs. Absent: distended, tenderness - Rectal Rectal exam: Present: deferred - Additional comments: exam deferred. - Extremities Exam Extremities exam: Present: pedal edema (Bilateral pedal edema non-pitting), warm , radial pulses palpable and symmetrical. Absent: calf tenderness, cyanotic - Back Exam Back exam: Present: normal inspection - Neurological Exam Neurological exam: Present: CN II-XII intact, oriented X3, no focal deficits. Absent: pronater drift, facial droop, speech deficit - Psychiatric Psychiatric exam: Present: normal affect, normal mood - Skin Skin exam: Present: dry, erythema (Coccyx area and upper left buttock), intact Internal Med - H&P Results - Labs CBC & Chem 7: 11/23/17 10:21 11/23/17 10:21 - EKG Data Prior EKG available for review: yes EKG comments: 11/23/17 15:00 EKG dated 07/16/17 shows atrial fibrillation with slow ventricular response with aberrant conduction or ventricular premature complexes, inferior myocardial infarction of indeterminate age. EKG dated 11/23/17 shows atrial fibrillation with upper conduction or ventricular premature complexes and possible anterior myocardial infarction of indeterminate age. - Diagnostic Studies Chest x-ray Additional comments: Impressions Chest X-Ray 11/23/17 10:08 IMPRESSION: 1. No acute cardiopulmonary disease. D/ / 11/23/2017 10:49:28 Bhumika Lan MD / ladonna Interpreting Provider: Bhumika Lan MD <Ruben Leyva - Last Filed: 11/24/17 07:47> Date of Encounter: 11/23/17 Internal Medicine - H&P: HPI History of present illness: Mr. Bassett is a 77 year old male All Systems PM: A 10-system review of systems was performed and is negative for pertinent findings except as documented above in the HPI. - Constitutional Vitals: Temp Pulse Resp BP Pulse Ox 98.0 F 64 18 146/68 97 11/23/17 13:17 11/23/17 13:17 11/23/17 15:59 11/23/17 13:17 11/23/17 15:59 Internal Med - H&P Results - Labs CBC & Chem 7: 11/24/17 02:44 11/24/17 02:44 Labs: Cardiac Enzymes 11/23/17 Range/Units 16:13 Troponin I 0.08 H* (< 0.04) ng/mL - Impressions ITS Impressions Head CT 11/23/17 16:00 IMPRESSION: 1. No acute intracranial abnormality. 2. Mild age-appropriate diffuse atrophy with minimal chronic small vessel ischemic changes. 3. Old lacunar infarct in the left basal ganglia. D/ / Dre Yañez MD / Dre Yañez MD Interpreting Provider: Dre Yañez MD - Attending Attestation For this encounter, I have reviewed the SHOULDER SAWYER or PA documentation, treatment plan, and medical decision making; and I have had face to face time with this patient. The patient reports burning sensation to his face and upper chest, constant in nature, severe, described as standing in front of a hot oven. On exam he is in no acute distress awake alert oriented. Heart is regular lungs are clear. Skin is dry and intact, no rashes noted. Troponin was elevated at 0.11 Plan: Atypical chest pain with elevated troponin. Trend troponin, monitor on telemetry, consult cardiology. For ESRD on hemodialysis we will consult nephrology.
[2017-11-23] MEDS: Insulin LISPRO 300 UNITS/3 ML VIAL SQ SCH (14:43)
[2017-11-23] MEDS: cloNIDine HCl 0.1 MG TABLET PO SCH ×2 (14:45→20:36)
[2017-11-23] MEDS: Pantoprazole 40 MG VIAL IVP SCH (15:09)
[2017-11-23] MEDS: Ipratropium/Albuterol Neb 3 ML IH SCH ×2 (15:59→21:50)
[2017-11-23] MEDS: Furosemide 40 MG TABLET PO SCH (17:56)
[2017-11-23] MEDS: Metoprolol 100 MG TABLET PO SCH (20:34)
[2017-11-23] MEDS: hydrALAZINE 25 MG TABLET PO SCH (20:37)
[2017-11-23] MEDS ORDERED: Insulin DETEMIR 100 UNIT/ML X5UNITS SQ SCH (21:00)
[2017-11-23] MEDS ORDERED: Temazepam 15 MG CAPSULE PO SCH (21:00)
[2017-11-23] MEDS ORDERED: Mirtazapine 15 MG TABLET PO SCH (21:00)
[2017-11-23] MEDS ORDERED: Insulin LISPRO 300 UNITS/3 ML VIAL SQ SCH (21:00)
[2017-11-23] MEDS ORDERED: *HR* Glimepiride 4 MG TABLET PO SCH (21:00)
[2017-11-23] MEDS: *HR* Heparin 5,000 UNIT/ML VIAL SQ SCH (22:05)
[2017-11-24 02:56] LABS: Basophils # 0.1 K/mcL (0.0-0.2); Basophils % 0.9 %; Eosinophils # 0.1 K/mcL (0.0-0.6); Eosinophils % 1.5 %; Hematocrit 32.9 % (37.5-50.1); Hemoglobin 10.5 g/dL (12.9-16.9); Immature Granulocytes % 0.3 % (0-4); Lymphocytes # 1.9 K/mcL (0.6-4.6); Lymphocytes % 28.7 %; Mean Corpuscular HGB Conc 31.9 g/dL (31.6-35.5); Mean Corpuscular Volume 100.3 fL (83.0-100.0); Mean Platelet Volume 10.3 fL (9.4-12.4); Monocytes # 0.6 K/mcL (0.0-1.3); Monocytes % 8.8 %; Neutrophils # 3.9 K/mcL (1.6-8.9); Platelet Count 190 K/mcL (140-400); Red Blood Count 3.28 M/mcL (4.19-5.50); Red Cell Distribution Width 14.7 % (11.5-14.5); Segmented Neutrophils % 59.8 %
[2017-11-24 03:07] LABS: Hemoglobin A1C 5.1 %
[2017-11-24 03:21] LABS: Albumin 3.4 g/dL (3.5-5.7); Albumin/Globulin Ratio 1.4 (1.1-2.2); Bilirubin,Total 0.4 mg/dL (0.3-1.0); Chol/HDL Ratio 2.4 (0-4.9); Globulin 2.5 g/dL (2.4-3.5); Magnesium 2.3 mg/dL (1.6-2.6); Total Protein 5.9 g/dL (6.4-8.9)
[2017-11-24] MEDS: Ipratropium/Albuterol Neb 3 ML IH SCH ×2 (03:48→10:50)
[2017-11-24 04:40] LABS: Thyroid Stimulating Hormone 1.425 mcIU/mL (0.340-5.600)
[2017-11-24] MEDS: *HR* Heparin 5,000 UNIT/ML VIAL SQ SCH (05:42)
[2017-11-24 08:13] VITALS: BP 172/64
[2017-11-24] MEDS: Insulin LISPRO 300 UNITS/3 ML VIAL SQ SCH (08:19)
[2017-11-24] MEDS ORDERED: Insulin DETEMIR 100 UNIT/ML X5UNITS SQ SCH (09:00)
[2017-11-24] MEDS ORDERED: Lisinopril 20 MG TABLET PO SCH (09:00)
[2017-11-24] MEDS ORDERED: cefTRIAXone 2,000 MG in Water for inj. (sterile) 20 ML IVP SCH (09:00)
[2017-11-24] MEDS ORDERED: Aspirin Enteric Coated 81 MG Tablet PO SCH (09:00)
[2017-11-24] MEDS ORDERED: amLODIPine 5 MG TABLET PO SCH (09:00)
[2017-11-24] MEDS: hydrALAZINE 25 MG TABLET PO SCH (10:25)
[2017-11-24] MEDS: Metoprolol 100 MG TABLET PO SCH (10:25)
[2017-11-24] MEDS: cloNIDine HCl 0.1 MG TABLET PO SCH (10:25)
[2017-11-24] MEDS: Furosemide 40 MG TABLET PO SCH (10:39)
[2017-11-24] MEDS: Pantoprazole 40 MG VIAL IVP SCH (10:40)
--- NOTE | 2017-11-24 12:38 | Internal Med Progress Note ---
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 Initiated on Rocephin- pprevious culture grew Escherichia coli -ensitive to Levaquin and Cipro-patient does not want Cipro will initiate on Levaqu 750 every 48 hours. Did review this dosage with pharmacist Jean Pierre. advised patient to follow up with battery container inspector and PCP Qualifiers: Urinary tract infection type: acute pyelonephritis Qualified Code(s): N10 - Acute pyelonephritis - Subjective Interval history: Patient requesting to leave [place], states " you are not doing anything for me" Advised that [facility] has not seen him and will be arriving soon. He wants to leave because heart enzymes are ok. Advised that we would give him a script for ATB before leaving - informed him that previous prescription was not appropriate , and would write a prescription for Cipro sense previous culture was sensitive. patient did not want Cipro it was too hard on his kidneys. I did review sensitivity with maranda Greenfield- recommending Levaquin every 48 hours. again offered for patient to stay and see cardiology. Patient wanted resultsCT scan of head which we reviewed,advised patient he would leaving [place], like to complete cardiac evaluation in order to ensure no cardiac damage has taken.He verbalized understanding and request to leave AGAINST MEDICAL ADVICE> I did give him prescription for levaquin 750 mg next 7 days - Constitutional Vitals: Temp Pulse Resp BP Pulse Ox 97.5 F L 52 16 172/64 99 11/24/17 07:58 11/24/17 07:58 11/24/17 10:50 11/24/17 07:58 11/24/17 10:50 General appearance: Present: cooperative, A&O X 3, pleasant, answers questions appropriately - Head Head exam: Present: atraumatic, normocephalic - Eye Eye exam: Present: PERRL, conjuntiva pink, sclera anicteric Pupils: Present: PERRL - Neck Neck exam general surgery: Present: supple, trachea midline. Absent: lymphadenopathy - Respiratory Respiratory exam: Present: CTAB. Absent: accessory muscle use, rales, rhonchi, wheezes - Cardiovascular Cardiovascular exam: Present: RRR, +S1, +S2. Absent: diastolic murmur, gallop, rubs, systolic murmur - GI/Abdominal GI/Abdominal exam: Present: normal bowel sounds, soft, no peritoneal signs. Absent: distended, tenderness - Extremities Exam Extremities exam: Present: warm, radial pulses palpable and symmetrical. Absent : calf tenderness, cyanotic, pedal edema - Neurological Exam Neurological exam: Present: CN II-XII intact, oriented X3, no focal deficits. Absent: pronater drift, facial droop, speech deficit - Skin Skin exam: Present: dry, intact Internal Medicine: Result - Labs CBC & Chem 7: 11/24/17 02:44 11/24/17 02:44 Labs: Short CBC 11/24/17 Range/Units 02:44 WBC 6.5 (4.3-11.1) K/mcL Hgb 10.5 L D (12.9-16.9) g/dL Hct 32.9 L (37.5-50.1) % Plt Count 190 (140-400) K/mcL Neutrophils # 3.9 (1.6-8.9) K/mcL BMP 11/24/17 02:44 Sodium 134 L Potassium 4.0 Chloride 99 Carbon Dioxide 26 BUN 39 H Creatinine 3.75 H Glucose 108 H Calcium 9.0 Cardiac Enzymes 11/23/17 11/23/17 Range/Units 16:13 22:18 Troponin I 0.08 H* 0.07 H* (< 0.04) ng/mL Liver Function 11/24/17 Range/Units 02:44 Total Bilirubin 0.4 (0.3-1.0) mg/dL AST 15 (13-39) Units/L ALT 13 (7-52) Units/L Alkaline Phosphatase 103 (34-104) Units/L Albumin 3.4 L (3.5-5.7) g/dL - Impressions Impressions Head CT 11/23/17 16:00 IMPRESSION: 1. No acute intracranial abnormality. 2. Mild age-appropriate diffuse atrophy with minimal chronic small vessel ischemic changes. 3. Old lacunar infarct in the left basal ganglia. D/ / Dre Yañez MD / Dre Yañez MD Interpreting Provider: Dre Yañez MD Consult Discharge Plan - Plan Referrals: Malik Roberts DO [Primary Care Provider] -
--- NOTE | 2017-11-24 12:54 | Discharge Summary ---
Date of Encounter: 11/24/17 Time of Encounter: 12:51 - Discharge Diagnosis (1) Sensation disturbance of skin Priority: Primary Status: Acute Comments: presently he is feeling fine troponins have been negative EKG with no acute ST T wave abnormality CT of head with old lacunar infarct advised to follow up with PCP (2) History of renal dialysis Priority: Secondary Status: Acute Comments: patient will follow-up with his draw operator and will undergo dialysis tomorrow (3) UTI (urinary tract infection) Priority: Secondary Status: Acute Comments: patient was treated for was placed on Macrobid finished 10/08 dosing- urinalysis obtained in the ER was indicative of UTI. Initiated on Rocephin- pprevious culture grew Escherichia coli -ensitive to Levaquin and Cipro-patient does not want Cipro will initiate on Levaqu 750 every 48 hours. Did review this dosage with pharmacist Jean Pierre. advised patient to follow up with draw operator and PCP Qualifiers: Urinary tract infection type: acute pyelonephritis Qualified Code(s): N10 - Acute pyelonephritis - Discharge Medications Home Medications: Amlodipine Besylate 10 mg PO DAILY 10/07/16 [History] Glimepiride [Amaryl] 4 mg PO BID 10/07/16 [History] Insulin Glargine,Hum.rec.anlog [Lantus Solostar] 10 unit SQ HS 10/07/16 [History ] Lisinopril [Zestril] 40 mg PO DAILY 10/07/16 [History] Lovastatin [Mevacor] 20 mg PO HS 10/07/16 [History] cloNIDine HCl [CloNIDine HCl] 0.1 mg PO TID 10/07/16 [History] Acetaminophen [Tylenol] 650 mg PO Q6HR PRN #60 tablet 10/08/16 [Rx] Metoprolol [Lopressor] 100 mg PO BID 10/08/16 [History] Nitroglycerin 0.4 mg SL Q5MIN PRN #30 tab.subl 10/08/16 [Rx] Albuterol Sulfate [Albuterol Inhaler] 2 puff IH Q4HR PRN 12/28/16 [History] Furosemide [Lasix] 80 mg PO TID 12/28/16 [History] Omeprazole [PriLOSEC] 20 mg PO DAILY 12/28/16 [History] hydrALAZINE [HydrALAZINE] 25 mg PO BID 12/28/16 [History] Mirtazapine [Remeron] 15 mg PO HS 07/16/17 [History] Cilostazol [Cilostazol] 50 mg PO BID 11/23/17 [History] Insulin Glargine,Hum.rec.anlog [Lantus Solostar] 12 unit SQ QAM 11/23/17 [ History] Sevelamer [Renvela] 1,600 mg PO TIDWM 11/23/17 [History] Temazepam [Restoril] 30 mg PO HS 11/23/17 [History] Zolpidem Tartrate [Zolpidem Tartrate] 5 mg PO HS PRN 11/23/17 [History] Allergies/Adverse Reactions: 3 Allergy/AdvReac Type Severity Reaction Status Date / Time No Known Allergies Allergy Verified 12/28/16 19:49 Procedures/tests Complete & Pending: Procedures Performed prior 72 hours Category Date Time Status CT head/brain wo con [CT] Routine Cat Scan 11/23/17 16:00 Completed EV echocardiogram Routine Y 11/23/17 13:51 Ordered Date of admission: 11/23/17 11:26 Primary care physician: Malik Roberts Consults: 11/23/17 13:13 Consult to Community Services Coordinator [CONS] Routine Reason for SW Consult: Please assess patient for possible home needs for post -discharge planning. 11/23/17 13:24 Consult to Nephrology [CONS] Routine Consulting Provider: Kidney Tonya/RONALDO/ESTEFANI/MIKKI Reason for Consult: Patient being admitted for ACS r/o and receives dialysis in [place] on [address]. Dialyzed yesterday. Depending on LOS, patient may require inpatient dialysis on Saturday. Call Completed: Yes 11/23/17 13:35 Consult to Cardiology [CONS] Routine Comment: Consulting Provider: Cardiology Tonya Reason for Consult: Patient is being admitted for feeling of heat on face and head w/some radiation to chest and back. Intermittent for past 2-3 weeks and now more constant. Hx of IA in 1999 w/stent x1 (pt. unsure) and double bypass in 1992. CAD, DM on insulin, HLD, HTN, ESRD on dialysis, and current tobacco abuse are his risk factors. Initial troponin 0.11. Denies CP, just feeling of heat. Pacemaker/AICD in place. Aspirin 325 in ED. Patient takes Lovastatin 20 mg HS. 40 mg dose given now. SL nitroglycerin not helping sx. Call Completed: Yes Discharging clinician: Deja Mccallum Anticipated date of discharge: 11/24/17 - Patient Status Disposition: Left Against Medical Advice Condition: Fair Overall status at discharge: patient is progressing back to baseline - Discharge Instructions Follow Up With: Malik Roberts, DO [Primary Care Provider] - - Diet and Activity Activity: increase activity as tolerated Diet: diabetic diet Interval History: Patient requesting to leave AMA, states " you are not doing anything for me" Advised that cardilogy has not seen him and will be arriving soon. He wants to leave because heart enzymes are ok. Advised that we would give him a script for ATB before leaving - informed him that previous prescription was not appropriate , and would write a prescription for Cipro sense previous culture was sensitive. patient did not want Cipro it was too hard on his kidneys. I did review sensitivity with pharmacist Jean Pierre- recommending Levaquin every 48 hours. again offered for patient to stay and see cardiology. Patient wanted resultsCT scan of head which we reviewed,advised patient he would leaving AMA, like to complete cardiac evaluation in order to ensure no cardiac damage has taken.He verbalized understanding and request to leave AGAINST MEDICAL ADVICE> I did give him prescription for levaquin 750 mg next 7 days Hospital course: Mr. Bassett is a 77 year old male past medical history of coronary artery disease diabetes hyperlipidemia hyperten IA end-stage renal disease dialysis Saturday and SATURDAY CABG acemaker/AICD> PATIENT PRESENTED TO THE EMERGENCY DEPARTMENT COMPLAINING OF FEELING HEAT ON FACE AND HEAD RADIATING TO UPPER BACK AND NECK FOR THE PAST 2 WEEKS NOW MORE CONSTANT> He also has a history diagnosed [facility] 3 days ago-he was placed on Macrobid urinalysis completed here indicative of UTI, started on Rocephin cardiac enzymes were slightly elevated on admission however has trended down. EKG with no ST T wave abnormalities. Cardiology has been consulted-waiting recommendations- this a.m. patient had low blood sugar-49-he was given dextroseblood sugar improved. Patient requesting to leave AMA-feels that "nothing is being done for me" encouraged patient to stay and be seen by cardiology. continues to requests to leave Will give patient prescription for ATB Last culture grew E coli which was sensitive to Cipro and levaquin. He does not want Cipro State he was advised not to take cipro by draw operator, will prescribe levaqiuin. Again advised patient ot be seen by cardiology to rule out any possible cardiac issues, and that he could have worsening cardiac issues and possible cardiac related again request to leave AMA. Advised to follow up with draw operator and PCP - Time Spent with Patient Total time spent providing and/or coordinating discharge services: - Constitutional Vitals: Temp Pulse Resp BP Pulse Ox 97.5 F L 52 16 172/64 99 11/24/17 07:58 11/24/17 07:58 11/24/17 10:50 11/24/17 07:58 11/24/17 10:50 General appearance: Present: cooperative, A&O X 3, pleasant, answers questions appropriately - Head Head exam: Present: atraumatic, normocephalic - Eye Eye exam: Present: PERRL, conjuntiva pink, sclera anicteric Pupils: Present: PERRL - Neck Neck exam general surgery: Present: supple, trachea midline. Absent: lymphadenopathy - Respiratory Respiratory exam: Present: CTAB. Absent: accessory muscle use, rales, rhonchi, wheezes - Cardiovascular Cardiovascular exam: Present: RRR, +S1, +S2. Absent: diastolic murmur, gallop, rubs, systolic murmur - GI/Abdominal GI/Abdominal exam: Present: normal bowel sounds, soft, no peritoneal signs. Absent: distended, tenderness - Extremities Exam Extremities exam: Present: warm, radial pulses palpable and symmetrical. Absent : calf tenderness, cyanotic, pedal edema - Neurological Exam Neurological exam: Present: CN II-XII intact, oriented X3, no focal deficits. Absent: pronater drift, facial droop, speech deficit - Skin Skin exam: Present: dry, intact
--- NOTE | 2017-11-24 13:02 | Cardiology Consult Note ---
Date of Encounter: 11/24/17 Time of Encounter: 13:00 Assessment and Plan (1) Elevated troponin Status: Acute 77 yo male with a history of CAD, prior revascularization. Presents with facial sensation. No chest pain or discomfort. No current facial sensation. Mildly elevated troponin in setting of ESRD, intermittent HTN. Presentation is not c/w ACS. We discussed possibly obtaining further testing. Patient emphatically denies, states he is going home after lunch. He is aware of the risks, including worsening of any cardiac issues and cardiac causes of . 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 Cardiology will sign off. Discussion w patient/family: The assessment and plan as outlined above was discussed with the patient and/or family members who expressed understanding and agreement. All questions were answered. Thank you for involving us in the care of your patient. Please call with any questions. History of Present Illness Consult date: 11/24/17 Requesting physician: Ruben Leyva Consult reason: Cardiac history Chief complaint: Cardiac history, mild enzyme elevation History of present illness: Mr. Bassett is a 77 year old male who presented with a primary complaint of facial tingling sensation. Absolutely denies chest pain or discomfort. Reports recently ran out of metoprolol and BP may have been a little higher. States remote CAD dx s/p CABG, subsequent coronary stent. States he is going home after lunch, not interested in cardiac testing. 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 Bill (?sp). Currently patient appears comfortable, denies any symptoms. TTE 12/29/2016: LVEF 45%. Device lead. Mild TR. Mild pHTN. Past Med Surg Social Fam HX - Past Medical History Medical history: coronary artery disease, diabetes (Insulin and oral), hyperlipidemia, hypertension, myocardial infarction (1999 w/possible stent x1), renal disease (ESRD on dialysis [facility]) Psychiatric history: no psych history - Past Surgical History Surgical History: coronary bypass (CABG) (Double in 1992), pacemaker/AICD - Social History Smoking Status: Current every day smoker Packs per day: 5-6 cigarettes/day, down from 1 PPD Smokeless Tobacco Status: No Alcohol use: none Drug use: none - Family History Mother Adopted: [place]: Tana Bassett Race: Family Member Ethnicity: Non- Living Status: Age at : 69 Cause of : Lung cancer Hx Family Cardiac Disorders: Yes (HTN) Hx Family Respiratory Disorders: No Hx Family Cancer: Yes (Lung) Hx Family Endocrine Disorder: Yes (DM) Hx Family Neuromuscular Disorders: No Hx Family Neurologic Disorders: No Hx Family HEENT Disorders: No Hx Family Autoimmune Disorders: No Father Race: Family Member Ethnicity: Non- Living Status: Age at : 88 Cause of : Old age Brother Race: Family Member Ethnicity: Non- Living Status: Age at : 53 Cause of : Metastatic skin cancer Hx Family Cancer: Yes (Basal cell carcinoma) Sister Race: Family Member Ethnicity: Non- Living Status: Still Living Hx Family Medical Disorders: No Medications and Allergies Amlodipine Besylate 10 mg PO DAILY 10/07/16 [History] Glimepiride [Amaryl] 4 mg PO BID 10/07/16 [History] Insulin Glargine,Hum.rec.anlog [Lantus Solostar] 10 unit SQ HS 10/07/16 [History ] Lisinopril [Zestril] 40 mg PO DAILY 10/07/16 [History] Lovastatin [Mevacor] 20 mg PO HS 10/07/16 [History] cloNIDine HCl [CloNIDine HCl] 0.1 mg PO TID 10/07/16 [History] Acetaminophen [Tylenol] 650 mg PO Q6HR PRN #60 tablet 10/08/16 [Rx] Metoprolol [Lopressor] 100 mg PO BID 10/08/16 [History] Nitroglycerin 0.4 mg SL Q5MIN PRN #30 tab.subl 10/08/16 [Rx] Albuterol Sulfate [Albuterol Inhaler] 2 puff IH Q4HR PRN 12/28/16 [History] Furosemide [Lasix] 80 mg PO TID 12/28/16 [History] Omeprazole [PriLOSEC] 20 mg PO DAILY 12/28/16 [History] hydrALAZINE [HydrALAZINE] 25 mg PO BID 12/28/16 [History] Mirtazapine [Remeron] 15 mg PO HS 07/16/17 [History] Cilostazol [Cilostazol] 50 mg PO BID 11/23/17 [History] Insulin Glargine,Hum.rec.anlog [Lantus Solostar] 12 unit SQ QAM 11/23/17 [ History] Sevelamer [Renvela] 1,600 mg PO TIDWM 11/23/17 [History] Temazepam [Restoril] 30 mg PO HS 11/23/17 [History] Zolpidem Tartrate [Zolpidem Tartrate] 5 mg PO HS PRN 11/23/17 [History] 3 Allergy/AdvReac Type Severity Reaction Status Date / Time No Known Allergies Allergy Verified 12/28/16 19:49 All Systems Review: A 10-system review of systems was performed and is negative for pertinent findings except as documented above in the HPI. - Cardiovascular Cardiovascular: as per HPI Physical Examination Vital Signs, Last 4 Hours Resp Pulse Ox 11/24/17 10:50 16 99 General: Conversant, No Apparent Distress Neck: No JVD, Normal carotid pulses Cardiac: Reg Rate and Rhythm, Normal S1 and S2, Other (Mild murmur) Lungs: Normal Breath Sounds, No Wheeze, Rales, Rhonchi Neuro: Alert and responsive, No focal deficits noted Abdomen: Soft, Non-Tender Skin: No rashes noted on visualized skin Musculoskeletal: No Chest Wall Tenderness Extremities: No Clubbing, No Cyanosis, No Edema Results 11/24/17 02:44 11/24/17 02:44 Lab Results 11/23/17 11/23/17 11/24/17 16:13 22:18 02:44 WBC 6.5 Hgb 10.5 L D Hct 32.9 L Plt Count 190 Sodium Potassium Chloride Carbon Dioxide BUN Creatinine Glucose Calcium Magnesium Total Bilirubin AST ALT Alkaline Phosphatase Troponin I 0.08 H* 0.07 H* TSH 11/24/17 11/24/17 02:44 02:44 WBC Hgb Hct Plt Count Sodium 134 L Potassium 4.0 Chloride 99 Carbon Dioxide 26 BUN 39 H Creatinine 3.75 H Glucose 108 H Calcium 9.0 Magnesium 2.3 Total Bilirubin 0.4 AST 15 ALT 13 Alkaline Phosphatase 103 Troponin I TSH 1.425 - Imaging and Cardiology Echo: report reviewed Consult Discharge Plan - Plan Referrals: Malik Roberts DO [Primary Care Provider] -
--- NOTE | 2017-11-29 07:57 | Electrocardiograph Report ---
[place] [id number] Test Date: 2017-11-23 Pat Name: Nino Bassett Department: 103 Room: 3B24 Gender: M Line Tender: ALEXI : 1940 Requested By: Collin Gatica Order Number: [id number] Reading MD: Roland Lopez DO Measurements Intervals [place] Rate: 60 P: MD: 0 QRS: 68 QRSD: 111 T: 149 QT: 425 QTc: 425 Interpretive Statements ATRIAL FIBRILLATION WITH ABERRANT CONDUCTION OR VENTRICULAR PREMATURE COMPLEXES POSSIBLE ANTERIOR MYOCARDIAL, OF INDETERMINATE AGE Electronically Signed On 11-29-2017 7:56:29 EST by Roland Lopez DO
== END 2017-11-24 12:54 | disposition left against medical advice (07) ==
LOC: EMEROO 09:40 → 3BNU 09:40
PROVIDERS: ADMIT Internal Medicine; ATTEND Registered Nurse

== ENCOUNTER 2018-12-18 19:16 | Observation (INO) ==
--- NOTE | 2018-12-18 22:57 | Emergency Department Note ---
Disposition Clinical Impression: CHF exacerbation Qualifiers: Heart failure type: unspecified Qualified Code(s): I50.9 - Heart failure, unspecified UTI (urinary tract infection) Qualifiers: Urinary tract infection type: site unspecified Hematuria presence: with hematuria Qualified Code(s): N39.0 - Urinary tract infection, site not specified; R31.9 - Hematuria, unspecified Disposition: Admitted As Inpatient Condition: Good Referrals: NONE,PCP [Primary Care Provider] - Forms: ED Satisfaction Letter General Adult HPI - General Chief complaint: ED Skin/Abscess/Foreign Body Stated complaint: " I have fluid around my defibrillator" Time Seen by Provider: 12/18/18 22:20 Source: patient Mode of arrival: private vehicle Limitations: no limitations Nursing Notes Reviewed: Yes Vital Signs Reviewed: Yes - History of Present Illness HPI Narrative: This is a 78-year-old male with a history of CHF, A. fib with a slow ventricular response who has an AICD, end-stage renal disease who is on dialysis Saturday, , Saturday, CAD, urinary retention, COPD, current smoker, DM presents emergency department for evaluation of the swelling around his AICD, missing dialysis on Saturday and Saturday due to "more important appointments" and now is short of breath, has "swelling to my legs and stomach which is part of the dialysis". He also states he has had an increasing runny nose and he has been coughing more than normal. Patient denies recent illness. He denies fever, chills. He denies abdominal pain, nausea, vomiting, confusion, diarrhea. He states he has to self catheter at home, he states his urinary retention gets worse when he has a UTI. He states he was just that the urologist and was given antibiotics that he has not started yet for UTI. He is unsure what the antibiotic is. Onset (ago): day(s) Pain Scale: 2 Consistency: constant, Worsening Improves with: other (Going to dialysis) Worsens with: other (Missing dialysis) Associated symptoms: Reports: cough. Denies: confusion, chest pain, diaphoresis, fever/chills Treatments Prior to Arrival: none - Related Data Home Medications Medication Instructions Recorded Confirmed Amlodipine Besylate 10 mg PO DAILY 10/07/16 11/23/17 Glimepiride [Amaryl] 4 mg PO BID 10/07/16 11/23/17 Insulin Glargine,Hum.rec.anlog 10 unit SQ HS 10/07/16 11/23/17 [Lantus Solostar] Lisinopril [Zestril] 40 mg PO DAILY 10/07/16 11/23/17 Lovastatin [Mevacor] 20 mg PO HS 10/07/16 11/23/17 cloNIDine HCl [CloNIDine HCl] 0.1 mg PO TID 10/07/16 11/23/17 Metoprolol [Lopressor] 100 mg PO BID 10/08/16 11/23/17 Albuterol Sulfate [Albuterol 2 puff IH Q4HR PRN 12/28/16 11/23/17 Inhaler] Furosemide [Lasix] 80 mg PO TID 12/28/16 11/23/17 Omeprazole [PriLOSEC] 20 mg PO DAILY 12/28/16 11/23/17 hydrALAZINE [HydrALAZINE] 25 mg PO BID 12/28/16 11/23/17 Mirtazapine [Remeron] 15 mg PO HS 07/16/17 11/23/17 Cilostazol 50 mg PO BID 11/23/17 11/23/17 Insulin Glargine,Hum.rec.anlog 12 unit SQ QAM 11/23/17 11/23/17 [Lantus Solostar] Sevelamer [Renvela] 1,600 mg PO TIDWM 11/23/17 11/23/17 Temazepam [Restoril] 30 mg PO HS 11/23/17 11/23/17 Zolpidem Tartrate 5 mg PO HS PRN 11/23/17 11/23/17 Previous Rx's Medication Instructions Recorded Acetaminophen [Tylenol] 650 mg PO Q6HR PRN #60 tablet 10/08/16 Nitroglycerin 0.4 mg SL Q5MIN PRN #30 tab.subl 10/08/16 levoFLOXacin [Levaquin] 750 mg PO DAILY #2 tablet 07/30/18 Allergies Allergy/AdvReac Type Severity Reaction Status Date / Time No Known Allergies Allergy Verified 07/30/18 09:37 All systems ED: reviewed and negative except as stated. Review of Systems: As Per HPI Constitutional: Denies: fever, chills ENT ED: Reports: other Cardiovascular: Denies: chest pain, palpitations Respiratory: Reports: cough, dyspnea. Denies: wheezes, hemoptysis, sputum production Gastrointestinal: Denies: abdominal pain, nausea, vomiting, diarrhea, constipation Genitourinary: Reports: other Past Medical History - Past Medical History Medical history: Reports: coronary artery disease, diabetes, hyperlipidemia, hypertension, myocardial infarction, renal disease Surgical history: Reports: coronary bypass (CABG) (Double in 1992), pacemaker/AICD Psychiatric history: Reports: no psych history - Social History Smoking Status: Current every day smoker Smokeless Tobacco Status: No Alcohol use: Reports: none Drug use: Reports: none Physical Exam - General Limitations: no limitations General appearance: alert, in no apparent distress - Head Head exam: atraumatic, normocephalic, normal inspection - Eye Eye exam: Present: normal appearance - ENT ENT exam: mucous membranes moist - Neck Neck exam: Present: normal inspection, full ROM, trachea midline - Chest Chest inspection: Present: normal inspection, symmetric chest wall rise, other (area of induration arond AICD; semi-firm, possible seroma vs calcification) - Respiratory Respiratory exam: Present: other (decreased; expir wheezing t/o) - Abdominal Exam Abdominal exam: Present: soft, Non-Tender, normal bowel sounds. Absent: tenderness, distention, guarding, rebound, rigidity - Extremities Exam Extremities exam: Present: full ROM, normal capillary refill, other (BLE 2+ pitting edema) - Expanded Lower Extremity Exam Neurovascular/Tendon exam: Present: normal capillary refill. Absent: pulse deficit Gait: observed and normal - Neurological Exam Neurological exam: Present: alert, oriented X3 - Psychiatric Psychiatric exam: Present: normal affect, normal mood - Skin Skin exam: Present: warm, dry, intact, normal color Course Course Narrative: Well-developed male in no acute distress. Respirations are easy and even. Saturation on room air 98%. Patient is non-tachycardic, nontachypneic. He speaks in full sentences without conversational dyspnea. He appears well. He ambulates with a steady gait. EKG completed at 23:24 reveals an atrial fibrillation, ventricular rate 54 bpm, no ischemic morphology identified Physical exam reveals a left upper chest with an AICD, there is a large indurated area without skin dyscrasia or erythema, it is somewhat firm, seroma? No change in several months, is being evaluated by director appointment who is well aware. Lungs noted with expiratory wheezing, there is some congestion bilateral lower lobes that does clear with cough. Good air movement with no accessory muscle usage. Abdomen soft nontender, no distention, guarding. No signs of surgical abdomen. Bilateral lower extremity is 2+ pitting edema, positive pedal edema. Pulses are present, capillary refill is brisk. Patient will have dialysis tomorrow at noon. We will obtain basic labs, CXR - Reevaluation(s) Reevaluation #1: Patient has been resting quietly, not return relatively unremarkable. Creatinine is 3.57, troponin is elevated at 0.04 this is most likely demand ischemia as patient has no complaints of chest pain, he has been elevated previously in the past for the same reason. BNP is greater than 1200. Patient has remained vitally stable, he continues to be A. fib on the monitor. I did discuss with patient admission for fluid overload, CHF exacerbation, he is agreeable to admission. We will give half a dose of Lasix IV to assist with fluid removal. Patient urine does show some urine bacteria, white blood cells, patient currently being treated for UTI. We will continue treatment with ceftriaxone for the UTI. Reevaluation #2: Spoke with hospitalist, agreeable for admission to the hospital for CHF exacerbation, fluid overload status. Time: 01:28 Vital Signs Temperature 98.0 F 12/18/18 19:28 Pulse Rate 63 12/18/18 19:28 Respiratory Rate 16 12/18/18 19:28 Blood Pressure 144/63 12/18/18 19:28 O2 Sat by Pulse Oximetry 97 12/18/18 19:28 Temperature 98.0 F 12/18/18 19:28 Pulse Rate 59 12/18/18 23:54 Respiratory Rate 16 12/19/18 00:14 Blood Pressure 159/74 12/18/18 23:54 O2 Sat by Pulse Oximetry 99 12/19/18 00:14 Oxygen Delivery Oxygen Delivery Room Air Medical Decision Making - Lab Data Result diagrams: 12/18/18 22:45 12/18/18 22:45 Lab Results 12/18/18 12/18/18 12/18/18 Range/Units 22:45 22:45 22:45 WBC 6.9 (4.3-11.1) K/mcL RBC 3.88 L (4.19-5.50) M/mcL Hgb 12.0 L (12.9-16.9) g/dL Hct 36.9 L (37.5-50.1) % MCV 95.1 (83.0-100.0) fL MCH 30.9 (28.0-33.3) pg MCHC 32.5 (31.6-35.5) g/dL RDW 13.8 (11.5-14.5) % Plt Count 177 (140-400) K/mcL MPV 10.8 (9.4-12.4) fL Immature Gran % 0.4 (0-4) % Seg Neutrophils % 74.1 % Lymphocytes % 16.4 % Monocytes % 6.2 % Eosinophils % 2.5 % Basophils % 0.4 % Neutrophils # 5.1 (1.6-8.9) K/mcL Lymphocytes # 1.1 (0.6-4.6) K/mcL Monocytes # 0.4 (0.0-1.3) K/mcL Eosinophils # 0.2 (0.0-0.6) K/mcL Basophils # 0.0 (0.0-0.2) K/mcL PT (9.4-12.1) Seconds INR APTT (26.0-36.0) Seconds Sodium 132 L (136-145) mEq/L Potassium 4.5 (3.5-5.1) mEq/L Chloride 99 (98-107) mEq/L Carbon Dioxide 23 (23-29) mEq/L BUN 59 H (8-23) mg/dL Creatinine 3.27 H (0.70-1.30) mg/dL Est GFR ( Amer) 22 L (> 60) Est GFR (Non-Af Amer) 18 L (> 60) BUN/Creatinine Ratio 18 (6-26) Glucose 88 (70-105) mg/dL Calculated Osmolality 290 (280-300) Lactic Acid 1.0 (0.5-2.2) mmol/L Calcium 9.0 (8.6-10.3) mg/dL Total Bilirubin 0.6 (0.3-1.0) mg/dL Direct Bilirubin 0.2 (0.0-0.2) mg/dL Indirect Bilirubin 0.4 (0.0-1.2) mg/dL AST 16 (13-39) Units/L ALT 14 (7-52) Units/L Alkaline Phosphatase 174 H (34-104) Units/L Troponin I 0.04 H* (< 0.04) ng/mL B-Natriuretic Peptide (Less than 100) pg/mL Serum Total Protein 7.2 (6.4-8.9) g/dL Albumin 4.0 (3.5-5.7) g/dL Globulin 3.2 (2.4-3.5) g/dL Albumin/Globulin Ratio 1.3 (1.1-2.2) Urine Color (Yellow) Urine Clarity (Clear) Urine pH (5.0-8.0) pH Units Ur Specific [place] (1.010-1.025) Urine Protein (Neg-Trace) mg/dL Urine Glucose (UA) (Normal) mg/dL Urine Ketones (Negative) mg/dL Urine Blood (Negative) Urine Nitrite (Negative) Urine Bilirubin (Negative) Urine Urobilinogen (Normal) mg/dL Ur Leukocyte Esterase (Negative) Urine Microscopic RBC (0-3) per hpf Urine Microscopic WBC (0-3) per hpf Ur Squamous Epith Cells (None-Few) per lpf Urine Bacteria (None-Few) per hpf Hyaline Casts (None-Few) per lpf Ur Culture Indicated? (NO) 12/18/18 12/18/18 12/19/18 Range/Units 22:45 22:45 00:32 WBC (4.3-11.1) K/mcL RBC (4.19-5.50) M/mcL Hgb (12.9-16.9) g/dL Hct (37.5-50.1) % MCV (83.0-100.0) fL MCH (28.0-33.3) pg MCHC (31.6-35.5) g/dL RDW (11.5-14.5) % Plt Count (140-400) K/mcL MPV (9.4-12.4) fL Immature Gran % (0-4) % Seg Neutrophils % % Lymphocytes % % Monocytes % % Eosinophils % % Basophils % % Neutrophils # (1.6-8.9) K/mcL Lymphocytes # (0.6-4.6) K/mcL Monocytes # (0.0-1.3) K/mcL Eosinophils # (0.0-0.6) K/mcL Basophils # (0.0-0.2) K/mcL PT 14.8 H (9.4-12.1) Seconds INR 1.3 APTT 42.1 H (26.0-36.0) Seconds Sodium (136-145) mEq/L Potassium (3.5-5.1) mEq/L Chloride (98-107) mEq/L Carbon Dioxide (23-29) mEq/L BUN (8-23) mg/dL Creatinine (0.70-1.30) mg/dL Est GFR ( Amer) (> 60) Est GFR (Non-Af Amer) (> 60) BUN/Creatinine Ratio (6-26) Glucose (70-105) mg/dL Calculated Osmolality (280-300) Lactic Acid (0.5-2.2) mmol/L Calcium (8.6-10.3) mg/dL Total Bilirubin (0.3-1.0) mg/dL Direct Bilirubin (0.0-0.2) mg/dL Indirect Bilirubin (0.0-1.2) mg/dL AST (13-39) Units/L ALT (7-52) Units/L Alkaline Phosphatase (34-104) Units/L Troponin I (< 0.04) ng/mL B-Natriuretic Peptide 1265 H (Less than 100) pg/mL Serum Total Protein (6.4-8.9) g/dL Albumin (3.5-5.7) g/dL Globulin (2.4-3.5) g/dL Albumin/Globulin Ratio (1.1-2.2) Urine Color Yellow (Yellow) Urine Clarity Cloudy A (Clear) Urine pH 6.0 (5.0-8.0) pH Units Ur Specific [place] 1.011 (1.010-1.025) Urine Protein 100 H (Neg-Trace) mg/dL Urine Glucose (UA) 100 H (Normal) mg/dL Urine Ketones Negative (Negative) mg/dL Urine Blood Trace H (Negative) Urine Nitrite Negative (Negative) Urine Bilirubin Negative (Negative) Urine Urobilinogen Normal (Normal) mg/dL Ur Leukocyte Esterase Small H (Negative) Urine Microscopic RBC 0-3 (0-3) per hpf Urine Microscopic WBC 15-30 H (0-3) per hpf Ur Squamous Epith Cells None Seen (None-Few) per lpf Urine Bacteria Many H (None-Few) per hpf Hyaline Casts None Seen (None-Few) per lpf Ur Culture Indicated? YES A (NO)
[2018-12-18 23:18] LABS: Hematocrit 36.9 % (37.5-50.1); Mean Corpuscular HGB Conc 32.5 g/dL (31.6-35.5); Mean Corpuscular Hemoglobin 30.9 pg (28.0-33.3); Mean Corpuscular Volume 95.1 fL (83.0-100.0); Mean Platelet Volume 10.8 fL (9.4-12.4); Platelet Count 177 K/mcL (140-400); Red Blood Count 3.88 M/mcL (4.19-5.50); Red Cell Distribution Width 13.8 % (11.5-14.5); Segmented Neutrophils % 74.1 %
[2018-12-18 23:19] LABS: Basophils % 0.4 %; Eosinophils # 0.2 K/mcL (0.0-0.6); Eosinophils % 2.5 %; Immature Granulocytes % 0.4 % (0-4); Lymphocytes # 1.1 K/mcL (0.6-4.6); Lymphocytes % 16.4 %; Monocytes # 0.4 K/mcL (0.0-1.3); Monocytes % 6.2 %; Neutrophils # 5.1 K/mcL (1.6-8.9)
[2018-12-18 23:27] LABS: INR 1.3; Prothrombin Time 14.8 Seconds (9.4-12.1)
[2018-12-18 23:29] LABS: Activated Partial Thrombo Time 42.1 Seconds (26.0-36.0)
[2018-12-18] MEDS ORDERED: Ipratropium/Albuterol Neb 3 ML IH ONE (23:42)
[2018-12-18 23:48] LABS: Albumin/Globulin Ratio 1.3 (1.1-2.2); Bilirubin,Direct 0.2 mg/dL (0.0-0.2); Bilirubin,Indirect 0.4 mg/dL (0.0-1.2); Bilirubin,Total 0.6 mg/dL (0.3-1.0); Globulin 3.2 g/dL (2.4-3.5); Potassium 4.5 mEq/L (3.5-5.1); Total Protein 7.2 g/dL (6.4-8.9); Troponin I 0.04 ng/mL (< 0.04)
[2018-12-19] MEDS ORDERED: Furosemide 40 MG/4 ML VIAL IVP ONE ×2 (00:03→02:51)
--- NOTE | 2018-12-19 00:23 | Emergency Department Note ---
Disposition Clinical Impression: CHF exacerbation Qualifiers: Heart failure type: unspecified Qualified Code(s): I50.9 - Heart failure, unspecified UTI (urinary tract infection) Qualifiers: Urinary tract infection type: site unspecified Hematuria presence: with hematuria Qualified Code(s): N39.0 - Urinary tract infection, site not specified Disposition: Admitted As Inpatient Condition: Good General Adult HPI - General Chief complaint: ED Skin/Abscess/Foreign Body Stated complaint: " I have fluid around my defibrillator" Time Seen by Provider: 12/18/18 22:20 Source: patient Mode of arrival: private vehicle Limitations: no limitations Nursing Notes Reviewed: Yes Vital Signs Reviewed: Yes - History of Present Illness Pain Scale: 2 Improves with: other (Going to dialysis) Worsens with: other (Missing dialysis) Associated symptoms: Reports: cough. Denies: confusion, chest pain, diaphoresis, fever/chills Treatments Prior to Arrival: none - Related Data Home Medications Medication Instructions Recorded Confirmed Amlodipine Besylate 10 mg PO DAILY 10/07/16 11/23/17 Glimepiride [Amaryl] 4 mg PO BID 10/07/16 11/23/17 Insulin Glargine,Hum.rec.anlog 10 unit SQ HS 10/07/16 11/23/17 [Lantus Solostar] Lisinopril [Zestril] 40 mg PO DAILY 10/07/16 11/23/17 Lovastatin [Mevacor] 20 mg PO HS 10/07/16 11/23/17 cloNIDine HCl [CloNIDine HCl] 0.1 mg PO TID 10/07/16 11/23/17 Metoprolol [Lopressor] 100 mg PO BID 10/08/16 11/23/17 Albuterol Sulfate [Albuterol 2 puff IH Q4HR PRN 12/28/16 11/23/17 Inhaler] Furosemide [Lasix] 80 mg PO TID 12/28/16 11/23/17 Omeprazole [PriLOSEC] 20 mg PO DAILY 12/28/16 11/23/17 hydrALAZINE [HydrALAZINE] 25 mg PO BID 12/28/16 11/23/17 Mirtazapine [Remeron] 15 mg PO HS 07/16/17 11/23/17 Cilostazol 50 mg PO BID 11/23/17 11/23/17 Insulin Glargine,Hum.rec.anlog 12 unit SQ QAM 11/23/17 11/23/17 [Lantus Solostar] Sevelamer [Renvela] 1,600 mg PO TIDWM 11/23/17 11/23/17 Temazepam [Restoril] 30 mg PO HS 11/23/17 11/23/17 Zolpidem Tartrate 5 mg PO HS PRN 11/23/17 11/23/17 Previous Rx's Medication Instructions Recorded Acetaminophen [Tylenol] 650 mg PO Q6HR PRN #60 tablet 10/08/16 Nitroglycerin 0.4 mg SL Q5MIN PRN #30 tab.subl 10/08/16 levoFLOXacin [Levaquin] 750 mg PO DAILY #2 tablet 07/30/18 Allergies Allergy/AdvReac Type Severity Reaction Status Date / Time No Known Allergies Allergy Verified 07/30/18 09:37 Constitutional: Denies: fever, chills ENT ED: Reports: other Cardiovascular: Denies: chest pain, palpitations Respiratory: Reports: cough, dyspnea. Denies: wheezes, hemoptysis, sputum production Gastrointestinal: Denies: abdominal pain, nausea, vomiting, diarrhea, constipation Genitourinary: Reports: other Past Medical History - Past Medical History Medical history: Reports: coronary artery disease, diabetes, hyperlipidemia, hypertension, myocardial infarction, renal disease Surgical history: Reports: coronary bypass (CABG) (Double in 1992), pacemaker/AICD Psychiatric history: Reports: no psych history - Social History Smoking Status: Current every day smoker Smokeless Tobacco Status: No Alcohol use: Reports: none Drug use: Reports: none Physical Exam - General Limitations: no limitations General appearance: alert, in no apparent distress Course Vital Signs Temperature 98.0 F 12/18/18 19:28 Pulse Rate 63 12/18/18 19:28 Respiratory Rate 16 12/18/18 19:28 Blood Pressure 144/63 12/18/18 19:28 O2 Sat by Pulse Oximetry 97 12/18/18 19:28 Temperature 98.0 F 12/18/18 19:28 Pulse Rate 59 12/18/18 23:54 Respiratory Rate 16 12/19/18 00:14 Blood Pressure 159/74 12/18/18 23:54 O2 Sat by Pulse Oximetry 99 12/19/18 00:14 Oxygen Delivery Oxygen Delivery Room Air Medical Decision Making - Medical Records Medical records reviewed: Yes I reviewed the patient's medical records. - Lab Data Lab results reviewed: Yes I reviewed the patient's lab results. Result diagrams: 12/18/18 22:45 12/18/18 22:45 Lab Results 12/18/18 12/18/18 12/18/18 Range/Units 22:45 22:45 22:45 WBC 6.9 (4.3-11.1) K/mcL RBC 3.88 L (4.19-5.50) M/mcL Hgb 12.0 L (12.9-16.9) g/dL Hct 36.9 L (37.5-50.1) % MCV 95.1 (83.0-100.0) fL MCH 30.9 (28.0-33.3) pg MCHC 32.5 (31.6-35.5) g/dL RDW 13.8 (11.5-14.5) % Plt Count 177 (140-400) K/mcL MPV 10.8 (9.4-12.4) fL Immature Gran % 0.4 (0-4) % Seg Neutrophils % 74.1 % Lymphocytes % 16.4 % Monocytes % 6.2 % Eosinophils % 2.5 % Basophils % 0.4 % Neutrophils # 5.1 (1.6-8.9) K/mcL Lymphocytes # 1.1 (0.6-4.6) K/mcL Monocytes # 0.4 (0.0-1.3) K/mcL Eosinophils # 0.2 (0.0-0.6) K/mcL Basophils # 0.0 (0.0-0.2) K/mcL PT (9.4-12.1) Seconds INR APTT (26.0-36.0) Seconds Sodium 132 L (136-145) mEq/L Potassium 4.5 (3.5-5.1) mEq/L Chloride 99 (98-107) mEq/L Carbon Dioxide 23 (23-29) mEq/L BUN 59 H (8-23) mg/dL Creatinine 3.27 H (0.70-1.30) mg/dL Est GFR ( Amer) 22 L (> 60) Est GFR (Non-Af Amer) 18 L (> 60) BUN/Creatinine Ratio 18 (6-26) Glucose 88 (70-105) mg/dL Calculated Osmolality 290 (280-300) Lactic Acid 1.0 (0.5-2.2) mmol/L Calcium 9.0 (8.6-10.3) mg/dL Total Bilirubin 0.6 (0.3-1.0) mg/dL Direct Bilirubin 0.2 (0.0-0.2) mg/dL Indirect Bilirubin 0.4 (0.0-1.2) mg/dL AST 16 (13-39) Units/L ALT 14 (7-52) Units/L Alkaline Phosphatase 174 H (34-104) Units/L Troponin I 0.04 H* (< 0.04) ng/mL B-Natriuretic Peptide (Less than 100) pg/mL Serum Total Protein 7.2 (6.4-8.9) g/dL Albumin 4.0 (3.5-5.7) g/dL Globulin 3.2 (2.4-3.5) g/dL Albumin/Globulin Ratio 1.3 (1.1-2.2) Urine Color (Yellow) Urine Clarity (Clear) Urine pH (5.0-8.0) pH Units Ur Specific [place] (1.010-1.025) Urine Protein (Neg-Trace) mg/dL Urine Glucose (UA) (Normal) mg/dL Urine Ketones (Negative) mg/dL Urine Blood (Negative) Urine Nitrite (Negative) Urine Bilirubin (Negative) Urine Urobilinogen (Normal) mg/dL Ur Leukocyte Esterase (Negative) Urine Microscopic RBC (0-3) per hpf Urine Microscopic WBC (0-3) per hpf Ur Squamous Epith Cells (None-Few) per lpf Urine Bacteria (None-Few) per hpf Hyaline Casts (None-Few) per lpf Ur Culture Indicated? (NO) 12/18/18 12/18/18 12/19/18 Range/Units 22:45 22:45 00:32 WBC (4.3-11.1) K/mcL RBC (4.19-5.50) M/mcL Hgb (12.9-16.9) g/dL Hct (37.5-50.1) % MCV (83.0-100.0) fL MCH (28.0-33.3) pg MCHC (31.6-35.5) g/dL RDW (11.5-14.5) % Plt Count (140-400) K/mcL MPV (9.4-12.4) fL Immature Gran % (0-4) % Seg Neutrophils % % Lymphocytes % % Monocytes % % Eosinophils % % Basophils % % Neutrophils # (1.6-8.9) K/mcL Lymphocytes # (0.6-4.6) K/mcL Monocytes # (0.0-1.3) K/mcL Eosinophils # (0.0-0.6) K/mcL Basophils # (0.0-0.2) K/mcL PT 14.8 H (9.4-12.1) Seconds INR 1.3 APTT 42.1 H (26.0-36.0) Seconds Sodium (136-145) mEq/L Potassium (3.5-5.1) mEq/L Chloride (98-107) mEq/L Carbon Dioxide (23-29) mEq/L BUN (8-23) mg/dL Creatinine (0.70-1.30) mg/dL Est GFR ( Amer) (> 60) Est GFR (Non-Af Amer) (> 60) BUN/Creatinine Ratio (6-26) Glucose (70-105) mg/dL Calculated Osmolality (280-300) Lactic Acid (0.5-2.2) mmol/L Calcium (8.6-10.3) mg/dL Total Bilirubin (0.3-1.0) mg/dL Direct Bilirubin (0.0-0.2) mg/dL Indirect Bilirubin (0.0-1.2) mg/dL AST (13-39) Units/L ALT (7-52) Units/L Alkaline Phosphatase (34-104) Units/L Troponin I (< 0.04) ng/mL B-Natriuretic Peptide 1265 H (Less than 100) pg/mL Serum Total Protein (6.4-8.9) g/dL Albumin (3.5-5.7) g/dL Globulin (2.4-3.5) g/dL Albumin/Globulin Ratio (1.1-2.2) Urine Color Yellow (Yellow) Urine Clarity Cloudy A (Clear) Urine pH 6.0 (5.0-8.0) pH Units Ur Specific [place] 1.011 (1.010-1.025) Urine Protein 100 H (Neg-Trace) mg/dL Urine Glucose (UA) 100 H (Normal) mg/dL Urine Ketones Negative (Negative) mg/dL Urine Blood Trace H (Negative) Urine Nitrite Negative (Negative) Urine Bilirubin Negative (Negative) Urine Urobilinogen Normal (Normal) mg/dL Ur Leukocyte Esterase Small H (Negative) Urine Microscopic RBC 0-3 (0-3) per hpf Urine Microscopic WBC 15-30 H (0-3) per hpf Ur Squamous Epith Cells None Seen (None-Few) per lpf Urine Bacteria Many H (None-Few) per hpf Hyaline Casts None Seen (None-Few) per lpf Ur Culture Indicated? YES A (NO) - Radiology Data Radiology results reviewed: Yes I reviewed the patient's radiology results. Chest X-Ray 12/18/18 22:38 IMPRESSION: No acute process. Stable cardiomegaly D/ / Dre Barajas MD / Dre Barajas MD Interpreting Provider: Dre Barajas MD - EKG Data EKG #1 EKG attestation: Yes I reviewed and interpreted this EKG. EKG results narrative: EKG shows atrial fibrillation with slow ventricular response. Heart rate 54. Nonspecific T-wave flattening. Critical Care Time Critical Care Time: No Total Critical Care Time: 15 Attestation Statement - Attestation Attestation: I, Neymar Castillo MD, personally evaluated this patient and discussed their management with the midlevel provicer, PAC/DIST[employer] SALES MANAGER. I reviewed the midlevel provider's note and agree with the documented findings, medical decision making, and plan of care. 78-year-old male presents to the emergency department complaining that he has missed his last 2 scheduled dialysis. He complains of increased swelling of the lower extremities and abdomen and also increased shortness of breath. No cough or fever. He also complains of fluid around his defibrillator however this has been present for months and [facility] who told him that it was just a pocket of fluid and it would resolve. On examination patient is a well-developed well-nourished elderly male in no acute distress. He is alert and oriented 3. There is no cyanosis. Breath sounds are decreased bilaterally with bibasilar rales. Heart regular rate and rhythm. Abdomen soft and nontender with normal bowel sounds. 2+ pitting edema of the lower extremities bilaterally, left greater than right. EKG shows atrial fibrillation with slow ventricular response. Heart rate 54. Nonspecific T-wave flattening. Chest x-ray shows stable cardiomegaly. Labs reviewed. BNP elevated at 1265. Troponin elevated at 0.04. The hospitalist, Dr. Carrasco, was consulted and accepted admission of the patient.
[2018-12-19 00:55] LABS: Bilirubin,Urine Negative (Negative); Blood,Urine Trace (Negative); Clarity,Urine Cloudy (Clear); Color,Urine Yellow (Yellow); Glucose,Urine (UA) 100 mg/dL (Normal); Ketones,Urine Negative (Negative); Leukocyte Esterase,Urine Small (Negative); Nitrite,Urine Negative (Negative); Protein,Urine 100 mg/dL (Neg-Trace); Specific Gravity,Urine 1.011 (1.010-1.025); Urobilinogen,Urine Normal (Normal)
[2018-12-19 00:58] LABS: Bacteria,Urine Many per hpf (None-Few); Hyaline Casts,Urine None Seen per lpf (None-Few); RBC,Urine 0-3 per hpf (0-3); Squamous Epithelial Cell,Urine None Seen per lpf (None-Few); WBC,Urine 15-30 per hpf (0-3)
[2018-12-19] MEDS ORDERED: cefTRIAXone 1,000 MG in 0.9 % Sodium Chloride Mini Bag 100 ML IVPB ONE (01:12)
[2018-12-19] MEDS ORDERED: Acetaminophen 325 MG TABLET PO PRN (02:49)
[2018-12-19] MEDS ORDERED: Naloxone 0.4 MG/ML INJ IVP PRN (02:49)
[2018-12-19] MEDS ORDERED: Ondansetron 4 MG/2 ML VIAL IVP PRN (02:49)
[2018-12-19] MEDS ORDERED: *HR* Dextrose 50 % in Water (Syg) 50 ML SYRINGE IVP PRN (03:09)
[2018-12-19] MEDS ORDERED: Dextrose Gel 15 GM/37.5 ML TUBE PO PRN ×2 (03:09)
[2018-12-19] MEDS ORDERED: D5% in Water 1,000 ML IVC PRN (03:09)
--- NOTE | 2018-12-19 03:13 | Internal Med History&Physical ---
Date of Encounter: 12/19/18 Time of Encounter: 03:11 Internal Medicine - H&P: HPI Chief complaint: Left chest wall swelling Admitted From: Emergency Dept Plans for Post Hospital Care: Home History of present illness: Mr. Bassett is a 78 year old male with history of coronary artery disease, type 2 diabetes, end-stage renal disease presents with swelling of his chest wall at the site of his implanted defibrillator. Patient states this is been going on for weeks and is gradually getting worse. He states he recently saw his DrNicole Meyer who told him it would gradually go away over time however he feels like it is getting worse. He reports mild pain. He denies any overlying erythema or drainage. He denies any trauma to the area. He denies any chest pain or shortness of breath. He states that he missed his regular scheduled dialysis session on Saturday and states that he normally dialyzes Saturday and Saturday. He also reports discomfort with urination and feels urinary tract infection. Denies fever, chills. Discussed with patient who wishes to be full code. 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 - Social History Smoking Status: Current every day smoker Smokeless Tobacco Status: No Alcohol use: none Drug use: none - Family History Mother Adopted: No Family Member Ethnicity: Non- Living Status: Hx Family Cardiac Disorders: Yes (HTN) Hx Family Respiratory Disorders: No Hx Family Cancer: Yes (Lung) Hx Family Endocrine Disorder: Yes (DM) Hx Family Neuromuscular Disorders: No Hx Family Neurologic Disorders: No Hx Family HEENT Disorders: No Hx Family Autoimmune Disorders: No Father Family Member Ethnicity: Non- Living Status: Brother Family Member Ethnicity: Non- Living Status: Hx Family Cancer: Yes (Basal cell carcinoma) Sister Family Member Ethnicity: Non- Living Status: Still Living Internal Medicine - H&P: Meds Amlodipine Besylate 10 mg PO DAILY 10/07/16 [History] Glimepiride [Amaryl] 4 mg PO BID 10/07/16 [History] Insulin Glargine,Hum.rec.anlog [Lantus Solostar] 10 unit SQ HS 10/07/16 [History] Lisinopril [Zestril] 40 mg PO DAILY 10/07/16 [History] Lovastatin [Mevacor] 20 mg PO HS 10/07/16 [History] cloNIDine HCl [CloNIDine HCl] 0.1 mg PO TID 10/07/16 [History] Acetaminophen [Tylenol] 650 mg PO Q6HR PRN #60 tablet 10/08/16 [Rx] Metoprolol [Lopressor] 100 mg PO BID 10/08/16 [History] Nitroglycerin 0.4 mg SL Q5MIN PRN #30 tab.subl 10/08/16 [Rx] Albuterol Sulfate [Albuterol Inhaler] 2 puff IH Q4HR PRN 12/28/16 [History] Furosemide [Lasix] 80 mg PO TID 12/28/16 [History] Omeprazole [PriLOSEC] 20 mg PO DAILY 12/28/16 [History] hydrALAZINE [HydrALAZINE] 25 mg PO BID 12/28/16 [History] Mirtazapine [Remeron] 15 mg PO HS 07/16/17 [History] Cilostazol 50 mg PO BID 11/23/17 [History] Insulin Glargine,Hum.rec.anlog [Lantus Solostar] 12 unit SQ QAM 11/23/17 [History] Sevelamer [Renvela] 1,600 mg PO TIDWM 11/23/17 [History] Temazepam [Restoril] 30 mg PO HS 11/23/17 [History] Zolpidem Tartrate 5 mg PO HS PRN 11/23/17 [History] levoFLOXacin [Levaquin] 750 mg PO DAILY #2 tablet 07/30/18 [Rx] Allergy/AdvReac Type Severity Reaction Status Date / Time No Known Allergies Allergy Verified 07/30/18 09:37 All Systems PM: A 10-system review of systems was performed and is negative for pertinent findings except as documented above in the HPI. Review of systems: 10 point review of systems was obtained and negative other than stated: - Constitutional Constitutional: no chills, no fever(s) - Cardiovascular Cardiovascular ROS IM: no chest pain Additional comments: chest wall swelling - Respiratory Respiratory: no cough, no dyspnea - Gastrointestinal Gastrointestinal: no abdominal pain, no nausea, no vomiting - Genitourinary Genitourinary ROS male: dysuria - Constitutional Vitals: Temp Pulse Resp BP Pulse Ox 98.0 F 59 16 159/74 99 12/18/18 19:28 12/18/18 23:54 12/19/18 00:14 12/18/18 23:54 12/19/18 00:14 General appearance: Present: A&O X 3, pleasant, no acute distress Exam: . - Head Head exam: Present: atraumatic, normal inspection, normocephalic - Eye Eye exam: Present: EOMI, PERRL - ENT ENT exam: Present: mucous membranes moist, normal oropharynx - Neck Neck exam general surgery: Present: full ROM. Absent: tenderness - Respiratory Respiratory exam: Present: CTAB. Absent: rales, rhonchi, wheezes - Cardiovascular Cardiovascular exam: Present: RRR. Absent: gallop, rubs, systolic murmur Additional comments: Softball size soft cystic structure directly underneath his implantable defibrillator. Nontender, no overlying erythema, no drainage noted - GI/Abdominal GI/Abdominal exam: Present: normal bowel sounds, soft. Absent: distended, tenderness - Extremities Exam Extremities exam: Present: pedal edema (2+ lower extremity bilaterally), warm. Absent: tenderness - Neurological Exam Neurological exam: Present: alert, CN II-XII intact, oriented X3, no focal deficits - Psychiatric Psychiatric exam: Present: normal affect, normal mood - Skin Skin exam: Present: dry, intact, warm Internal Med - H&P Results - Labs CBC & Chem 7: 12/18/18 22:45 12/18/18 22:45 Labs: Short CBC 12/18/18 Range/Units 22:45 WBC 6.9 (4.3-11.1) K/mcL Hgb 12.0 L (12.9-16.9) g/dL Hct 36.9 L (37.5-50.1) % Plt Count 177 (140-400) K/mcL Neutrophils # 5.1 (1.6-8.9) K/mcL BMP 12/18/18 22:45 Sodium 132 L Potassium 4.5 Chloride 99 Carbon Dioxide 23 BUN 59 H Creatinine 3.27 H Glucose 88 Calcium 9.0 Cardiac Enzymes 03/14/19 Range/Units 22:45 Troponin I 0.04 H* (< 0.04) ng/mL Liver Function 12/18/18 Range/Units 22:45 Total Bilirubin 0.6 (0.3-1.0) mg/dL Direct Bilirubin 0.2 (0.0-0.2) mg/dL AST 16 (13-39) Units/L ALT 14 (7-52) Units/L Alkaline Phosphatase 174 H (34-104) Units/L Albumin 4.0 (3.5-5.7) g/dL Urine 12/19/18 Range/Units 00:32 Urine Color Yellow (Yellow) Urine Clarity Cloudy A (Clear) Urine pH 6.0 (5.0-8.0) pH Units Ur Specific [place] 1.011 (1.010-1.025) Urine Protein 100 H (Neg-Trace) mg/dL Urine Glucose (UA) 100 H (Normal) mg/dL - Impressions ITS Impressions Chest X-Ray 12/18/18 22:38 IMPRESSION: No acute process. Stable cardiomegaly D/ / Dre Barajas MD / Dre Barajas MD Interpreting Provider: Dre Barajas MD - Assessment and Plan (1) Chest wall mass Current Visit: Yes Status: Acute Assessment and plan: Large swelling underneath his defibrillator. This is chronic for patient and apparently has been evaluated by the physician who placed a defibrillator at [facility] and ultimately was nothing to worry about it, however it remains bothersome for patient. Nontender, no erythema, does not appear infected. We will obtain ultrasound of this area and depending on results may need interventional radiology consult for drainage. (2) UTI (urinary tract infection) Current Visit: Yes Status: Acute Assessment and plan: Patient has urinary discomfort with UA positive for leukocyte esterase. We will treat with Rocephin. Patient reports that he self-caths that increases risk for urinary tract infections. Urine culture pending, no leukocytosis or fever. Qualifiers: Urinary tract infection type: acute cystitis Hematuria presence: with hematuria Qualified Code(s): N30.01 - Acute cystitis with hematuria (3) ESRD (end stage renal disease) on dialysis Current Visit: Yes Status: Chronic Assessment and plan: Patient reports that he dialyzes Saturday and Saturday. Follows with Dr. Rodriguez. He reports he missed his Saturday session. We will consult nephrology and plan for regularly scheduled dialysis on Saturday. (4) HTN (hypertension) Current Visit: No Status: Chronic Assessment and plan: Mildly hypertensive, likely due to increased fluid due to noncompliance with dialysis. Plan for dialysis today. Restart medications once confirmed Qualifiers: Hypertension type: essential hypertension Qualified Code(s): I10 - Essential (primary) hypertension (5) Diabetes mellitus Current Visit: No Status: Chronic Assessment and plan: Blood sugar stable on presentation. Hold oral diabetic medications and start low-dose sliding scale coverage. Adjust as necessary. 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 Chest pain-free this time. Troponin is very mildly elevated 0.04 however this is likely due to poor clearance in the setting of ESRD. We will trend. Qualifiers: Coronary Disease-Associated Artery/Lesion type: [place] artery [place] vs. transplanted heart: [place] heart Associated angina: without angina Qualified Code(s): I25.10 - Atherosclerotic heart disease of [place] coronary artery without angina pectoris (7) Chronic systolic heart failure Current Visit: Yes Status: Acute Assessment and plan: Review of records reveals last echo showed EF of 45%. Patient stable at this time. No evidence of acute exacerbation. Restart her home medications once confirmed (8) DVT prophylaxis Current Visit: No Status: Acute Assessment and plan: Heparin 5000u SQ BID - Time Spent With Patient Total time spent is greater than 50% in coordination of care (as documented) at patient's floor/unit and/or counseling patient:
[2018-12-19] MEDS: *HR* Heparin 5,000 UNIT/ML VIAL SQ SCH ×2 (05:25→20:00)
[2018-12-19 06:07] LABS: Basophils % 0.4 %; Eosinophils # 0.1 K/mcL (0.0-0.6); Eosinophils % 1.7 %; Hematocrit 31.4 % (37.5-50.1); Immature Granulocytes % 0.6 % (0-4); Lymphocytes % 14.6 %; Mean Corpuscular HGB Conc 32.5 g/dL (31.6-35.5); Mean Corpuscular Hemoglobin 30.6 pg (28.0-33.3); Mean Corpuscular Volume 94.3 fL (83.0-100.0); Mean Platelet Volume 10.6 fL (9.4-12.4); Monocytes # 0.4 K/mcL (0.0-1.3); Monocytes % 6.1 %; Neutrophils # 5.3 K/mcL (1.6-8.9); Platelet Count 154 K/mcL (140-400); Red Blood Count 3.33 M/mcL (4.19-5.50); Red Cell Distribution Width 13.8 % (11.5-14.5); Segmented Neutrophils % 76.6 %
[2018-12-19 06:13] LABS: Hemoglobin 10.2 g/dL (12.9-16.9)
[2018-12-19 07:05] LABS: Calcium 8.5 mg/dL (8.6-10.3); Magnesium 2.4 mg/dL (1.6-2.6); Potassium 4.1 mEq/L (3.5-5.1)
[2018-12-19] MEDS: Insulin LISPRO 300 UNITS/3 ML VIAL SQ SCH ×3 (08:04→19:59)
[2018-12-19 09:44] LABS: Hepatitis B Surface Antibody 391.85 mIU/mL
[2018-12-19 09:55] LABS: Hepatitis B Surface Antigen Nonreactive (Nonreactive)
[2018-12-19] MEDS ORDERED: *HR* Heparin 10,000 UNIT/10 ML VIAL IV PRN (13:31)
[2018-12-19] MEDS ORDERED: 0.9 % Sodium Chloride 250 ML IVC PRN (13:31)
--- NOTE | 2018-12-19 13:33 | Nephrology Consult Note ---
Date of Encounter: 12/19/18 Time of Encounter: 12:00 Assessment and Plan (1) ESRD (end stage renal disease) on dialysis Current Visit: Yes Status: Chronic ESRD on dialysis only on and with Dr. Rodriguez He missed dialysis on Saturday No acute signs of uremia He is due for regularly scheduled dialysis today Thank-you for consulting [facility]. We will continue to follow (2) Chest wall mass Current Visit: Yes Status: Acute (3) Type 2 diabetes mellitus with diabetic chronic kidney disease Current Visit: No Status: Chronic Qualifiers: Diabetes mellitus [facility] insulin use: with [facility] use Chronic kidney disease stage: on chronic dialysis Qualified Code(s): E11.22 - Type 2 diabetes mellitus with diabetic chronic kidney disease; N18.6 - End stage renal disease; Z79.4 - care home (current) use of insulin; Z99.2 - Dependence on renal dialysis (4) UTI (urinary tract infection) Current Visit: Yes Status: Acute Qualifiers: Urinary tract infection type: acute cystitis Hematuria presence: with hematuria Qualified Code(s): N30.01 - Acute cystitis with hematuria (5) HTN (hypertension) Current Visit: No Status: Chronic Qualifiers: Hypertension type: essential hypertension Qualified Code(s): I10 - Essential (primary) hypertension (6) Chronic systolic heart failure Current Visit: Yes Status: Acute History of Present Illness - Reason for Consult Consult date: 12/19/18 end stage renal disease Requesting physician: Dre Mora - Chief Complaint ESRD, UTI - History of Present Illness Mr. Bassett is a 78 yo WM with PMH of ESRD on dialysis MF with Dr. Rodriguez who is admitted for swelling around his implanted defibrillator. Other PMH includes CAD s/p CAGB with PM/AICD, T2DM, and HTN. He reports that he missed dialysis on Saturday because he wasn't feeling well related to a UTI. He does not know his dry weight. He states he is concerned about his swelling around the defibrillator and that his upper body feels warm. He denies confusion, dyspnea, chest pain, N/V, abdominal pain, or worsening LE edema. Radiocephalic AV fistula in right arm. 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 - Social History Smoking Status: Current every day smoker Packs per day: 0.5 Smokeless Tobacco Status: No Alcohol use: none Drug use: none - Family History Mother Adopted: No Family Member Ethnicity: Non- Living Status: Hx Family Cardiac Disorders: Yes (HTN) Hx Family Respiratory Disorders: No Hx Family Cancer: Yes (Lung) Hx Family Endocrine Disorder: Yes (DM) Hx Family Neuromuscular Disorders: No Hx Family Neurologic Disorders: No Hx Family HEENT Disorders: No Hx Family Autoimmune Disorders: No Father Family Member Ethnicity: Non- Living Status: Brother Family Member Ethnicity: Non- Living Status: Hx Family Cancer: Yes (Basal cell carcinoma) Sister Family Member Ethnicity: Non- Living Status: Still Living Medications and Allergies Amlodipine Besylate 10 mg PO DAILY 10/07/16 [History] Glimepiride [Amaryl] 4 mg PO BID 10/07/16 [History] Insulin Glargine,Hum.rec.anlog [Lantus Solostar] 10 unit SQ HS 10/07/16 [History] Lisinopril [Zestril] 40 mg PO DAILY 10/07/16 [History] Lovastatin [Mevacor] 20 mg PO HS 10/07/16 [History] cloNIDine HCl [CloNIDine HCl] 0.1 mg PO TID 10/07/16 [History] Acetaminophen [Tylenol] 650 mg PO Q6HR PRN #60 tablet 10/08/16 [Rx] Metoprolol [Lopressor] 100 mg PO BID 10/08/16 [History] Nitroglycerin 0.4 mg SL Q5MIN PRN #30 tab.subl 10/08/16 [Rx] Albuterol Sulfate [Albuterol Inhaler] 2 puff IH Q4HR PRN 12/28/16 [History] Furosemide [Lasix] 80 mg PO TID 12/28/16 [History] Omeprazole [PriLOSEC] 20 mg PO DAILY 12/28/16 [History] hydrALAZINE [HydrALAZINE] 25 mg PO BID 12/28/16 [History] Mirtazapine [Remeron] 15 mg PO HS 07/16/17 [History] Cilostazol 50 mg PO BID 11/23/17 [History] Insulin Glargine,Hum.rec.anlog [Lantus Solostar] 12 unit SQ QAM 11/23/17 [History] Sevelamer [Renvela] 1,600 mg PO TIDWM 11/23/17 [History] Temazepam [Restoril] 30 mg PO HS 11/23/17 [History] Zolpidem Tartrate 5 mg PO HS PRN 11/23/17 [History] levoFLOXacin [Levaquin] 750 mg PO DAILY #2 tablet 07/30/18 [Rx] Pregabalin [Lyrica] 100 mg PO DAILY 12/19/18 [History] Allergy/AdvReac Type Severity Reaction Status Date / Time No Known Allergies Allergy Verified 07/30/18 09:37 Review of Systems All Systems: reviewed and no additional remarkable complaints except as stated Exam - Vital Signs Vital signs: Initial Vital Signs Temp Pulse Resp BP Pulse Ox 98.0 F 63 16 144/63 97 12/18/18 19:28 12/18/18 19:28 12/18/18 19:28 12/18/18 19:28 12/18/18 19:28 Vital Signs - Last 8 Hours Temp Pulse Resp BP Pulse Ox 12/19/18 11:14 97.9 F 75 18 158/75 96 12/19/18 07:29 97.8 F 60 18 156/64 97 Intake and Output 12/18/18 12/19/18 12/19/18 23:59 07:59 15:59 Intake Total 200 / 200 480 / 480 Output Total 350 / 350 375 / 375 Balance -150 / -150 105 / 105 Intake: Oral 200 / 200 480 / 480 Output: Urine 350 / 350 375 / 375 Other: Meal Breakfast Percent of Meal Consumed 100% Weight 68.039 kg 69.1 kg Blood Glucose* 153 160 Patient Weight 12/19/18 23:59 Weight 69.1 kg - General Appearance General appearance: well-developed, well-nourished EENT: ATNC, mucous membranes moist Neck: supple Respiratory: course breath sounds Cardiology: edema (+2 LE bilaterally), regular rate, regular rhythm - Dialysis Access Dialysis Vascular Access: Arteriovenous Fistula (right radiocephalic) thrill: Yes bruit: Yes Gastrointestinal: normoactive bowel sounds, no tenderness Integumentary: warm and dry Neurologic: no focal deficit Musculoskeletal: no cyanosis, no clubbing Psychiatric: mood/affect appropriate, cooperative Results - Lab Results 12/19/18 05:32 12/19/18 05:32 Most recent lab results Calcium 8.5 mg/dL (8.6-10.3) L 12/19/18 05:32 Magnesium 2.4 mg/dL (1.6-2.6) 12/19/18 05:32 Consult Discharge Plan - Plan Referrals: Malik Roberts DO [Non-Partnered Physician] - 12/26/18 9:30 am
[2018-12-19] MEDS ORDERED: 0.9 % Sodium Chloride 1,000 ML PRIME SCH (13:45)
[2018-12-19] MEDS ORDERED: 0.9 % Sodium Chloride 2,000 ML ONE (14:08)
[2018-12-19] MEDS ORDERED: Pregabalin 50 MG CAPSULE PO SCH (14:45)
--- NOTE | 2018-12-19 15:48 | Event Note ---
Date of Encounter: 12/19/18 Time of Encounter: 15:48 Patient was seen and examined earlier this morning by hospitalist services. Patient is currently in dialysis. She is upset states that nothing is getting done. Advised patient that ultrasound has been ordered for his chest however he is currently in dialysis may not be done until later this evening. Patient states her general care and going to leave AMA tomorrow. Encouraged patient to states to complete treatment he is also concerned about his culture explained the patient that I did receive urine culture results from [facility] and would review that with him once he arrived back to the floor. Patient states that he did not care and that he is leaving tomorrow
[2018-12-19 19:56] VITALS: BP 155/70
[2018-12-19] MEDS ORDERED: Insulin LISPRO 300 UNITS/3 ML VIAL SQ SCH (21:00)
[2018-12-19] MEDS ORDERED: Metoprolol 100 MG TABLET PO SCH (21:00)
[2018-12-19] MEDS ORDERED: Temazepam 15 MG CAPSULE PO SCH (21:00)
[2018-12-19] MEDS ORDERED: cloNIDine HCl 0.1 MG TABLET PO SCH (21:00)
[2018-12-19] MEDS ORDERED: Furosemide 40 MG TABLET PO SCH (21:00)
[2018-12-20] MEDS ORDERED: cefTRIAXone 1,000 MG in Water for inj. (sterile) 20 ML 10 ML IVPB SCH (01:00)
--- NOTE | 2018-12-20 03:27 | Electrocardiograph Report ---
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
[2018-12-20] MEDS: *HR* Heparin 5,000 UNIT/ML VIAL SQ SCH (05:05)
[2018-12-20] MEDS ORDERED: amLODIPine 5 MG TABLET PO SCH (09:00)
[2018-12-20] MEDS ORDERED: PREGABALIN 100 MG PO SCH (09:00)
== END 2018-12-20 07:08 | disposition left against medical advice (07) ==
LOC: EMEROOARM 19:16 → 3BNU 19:16 → SUATTDRO 12-19 01:40 → 3BNU 12-19 02:15
PROVIDERS: ADMIT Internal Medicine; ATTEND Internal Medicine

== ENCOUNTER 2019-04-25 12:55 | Inpatient (IN) ==
[2019-04-25] MEDS ORDERED: Ipratropium/Albuterol Neb 3 ML IH ONE (13:40)
[2019-04-25 13:57] LABS: Basophils % 0.5 %; Eosinophils % 0.7 %; Hematocrit 29.3 % (37.5-50.1); Hemoglobin 9.5 g/dL (12.9-16.9); Immature Granulocytes % 0.5 % (0-4); Lymphocytes # 0.7 K/mcL (0.6-4.6); Lymphocytes % 10.9 %; Mean Corpuscular HGB Conc 32.4 g/dL (31.6-35.5); Mean Corpuscular Hemoglobin 32.4 pg (28.0-33.3); Mean Platelet Volume 11.9 fL (9.4-12.4); Monocytes # 0.4 K/mcL (0.0-1.3); Monocytes % 6.8 %; Neutrophils # 4.9 K/mcL (1.6-8.9); Platelet Count 108 K/mcL (140-400); Red Blood Count 2.93 M/mcL (4.19-5.50); Red Cell Distribution Width 14.8 % (11.5-14.5); Segmented Neutrophils % 80.6 %
[2019-04-25 14:17] LABS: Calcium 8.7 mg/dL (8.6-10.3)
--- NOTE | 2019-04-25 14:18 | Emergency Department Note ---
Disposition Clinical Impression: ESRD (end stage renal disease) on dialysis, Elevated troponin Congestive heart failure (CHF) Qualifiers: Qualified Code(s): I50.9 - Heart failure, unspecified Disposition: Admitted As Inpatient Condition: Fair Referrals: NONE,PCP [Primary Care Provider] - Forms: ED Satisfaction Letter Time of Disposition: 15:28 General Adult HPI - General Chief complaint: ED Shortness of Breath/Dyspnea Stated complaint: LINWOOD,Fluid Retention Time Seen by Provider: 04/25/19 13:02 Source: patient, family Mode of arrival: ambulatory Limitations: no limitations Nursing Notes Reviewed: Yes Vital Signs Reviewed: Yes - History of Present Illness HPI Narrative: Patient is an 79-year-old male that presents emergency Department with reports of fluid overload and shortness of breath. Patient states that he is a dialysis patient and dialyzes on Saturday and Saturday with Dr. Rosario at [facility]. States that yesterday he was supposed to have dialysis however his blood pressure was low as they were unable to dialyze him. Patient states that he has significant swelling to bilateral lower extremities and increased shortness of breath. Family states that he does have a history of heart failure as well and he waxes and wanes with his fluid status and fluid overload and shortness of breath like symptoms. Patient states that he has a fullness or heaviness to his chest but no true chest pain. Patient states that this seems just like his usual fluid overload. Pain Scale: 0 - Related Data Home Medications Medication Instructions Recorded Confirmed Amlodipine Besylate 10 mg PO DAILY 10/07/16 12/19/18 Lisinopril [Zestril] 40 mg PO DAILY 10/07/16 11/23/17 Lovastatin [Mevacor] 20 mg PO HS 10/07/16 11/23/17 cloNIDine HCl [CloNIDine HCl] 0.1 mg PO TID 10/07/16 12/19/18 Metoprolol [Lopressor] 100 mg PO BID 10/08/16 12/19/18 Furosemide [Lasix] 80 mg PO TID 12/28/16 12/19/18 Temazepam [Restoril] 30 mg PO HS 11/23/17 12/19/18 Aspirin [Adult Aspirin] 81 mg PO DAILY 04/25/19 04/25/19 Insulin Glargine,Hum.rec.anlog 11 unit SQ BID 04/25/19 04/25/19 [Basaglmelissa Jericholorin U-100] Pregabalin [Lyrica] 150 mg PO DAILY 04/25/19 04/25/19 Renal Vitamin [Renal Caps Softgel] 1 mg PO DAILY 04/25/19 04/25/19 Tamsulosin HCl [Flomax] 0.4 mg PO DAILY 04/25/19 04/25/19 Allergies Allergy/AdvReac Type Severity Reaction Status Date / Time No Known Allergies Allergy Verified 07/30/18 09:37 All systems ED: reviewed and negative except as stated. Constitutional: Denies: fever Cardiovascular: Denies: chest pain Respiratory: Reports: dyspnea Gastrointestinal: Denies: abdominal pain, nausea, vomiting Musculoskeletal: Denies: back pain, neck pain Neurological: Denies: weakness, numbness, paresthesias Past Medical History - Past Medical History Medical history: Reports: CHF, coronary artery disease, diabetes, dialysis, hyperlipidemia, hypertension, myocardial infarction, renal disease Surgical history: Reports: coronary bypass (CABG), pacemaker/AICD Psychiatric history: Reports: no psych history - Social History Smoking Status: Current every day smoker Smokeless Tobacco Status: No Alcohol use: Reports: none Drug use: Reports: none Physical Exam - General Limitations: no limitations General appearance: alert, in no apparent distress - Head Head exam: atraumatic, normocephalic - Eye Eye exam: Present: normal appearance, EOMI - Neck Neck exam: Present: normal inspection, full ROM, trachea midline - Respiratory Respiratory exam: Present: wheezes - Cardiovascular Cardiovascular exam: Present: regular rate, normal rhythm, normal heart sounds, +S1, +S2 - Abdominal Exam Abdominal exam: Present: soft, Non-Tender, normal bowel sounds - Neurological Exam Neurological exam: Present: alert, oriented X3 - Psychiatric Psychiatric exam: Present: normal affect, normal mood - Skin Skin exam: Present: warm, dry, intact Course Vital Signs Temperature 97.7 F 04/25/19 12:56 Pulse Rate 68 04/25/19 12:56 Respiratory Rate 04/25/19 12:56 Blood Pressure 109/57 04/25/19 12:56 O2 Sat by Pulse Oximetry 93 04/25/19 12:56 Temperature 97.7 F 04/25/19 13:26 Pulse Rate 68 04/25/19 13:26 Respiratory Rate 18 04/25/19 14:44 Blood Pressure 109/57 04/25/19 14:44 O2 Sat by Pulse Oximetry 91 04/25/19 14:44 Oxygen Delivery Oxygen Delivery Room Air Medical Decision Making - MDM Narrative Medical decision making narrative: Due the patient's into the emergency department with reports of fluid retention we will obtain basic laboratory testing chest x-ray and EKG. Anticipate the patient will need admission to the hospital for acute fluid overload. Patient has significant elevation in his creatinine. He has an elevated BNP of greater than 1300. Troponin 0.06. Patient does not have any active chest pain at this time but does have shortness of breath and acute fluid overload. Patient's last dialysis session was Saturday which was 6 days ago. Due to the patient's symptoms and findings on exam as well as the laboratory findings and feel it is most appropriate for him to be admitted to the hospital for further evaluation and management. Patient checks x-ray did show concern for pulmonary edema. Patient will be admitted to the hospital for further evaluation and management. I called and spoke with the admitting hospitalist Dr. De La Fuente and he has accepted the patient to their service. I also spoke with the on-call charter and tour bus driver Dr. Camilo and he has been notified that the patient will be admitted to the medical service. He will also help facilitate the patient being dialyzed today. - Medical Records Medical records reviewed: Yes I reviewed the patient's medical records. - Lab Data Lab results reviewed: Yes I reviewed the patient's lab results. Result diagrams: 04/25/19 13:30 04/25/19 13:30 Lab Results 04/25/19 04/25/19 04/25/19 Range/Units 13:30 13:30 13:30 WBC 6.0 (4.3-11.1) K/mcL RBC 2.93 L (4.19-5.50) M/mcL Hgb 9.5 L (12.9-16.9) g/dL Hct 29.3 L (37.5-50.1) % MCV 100.0 (83.0-100.0) fL MCH 32.4 (28.0-33.3) pg MCHC 32.4 (31.6-35.5) g/dL RDW 14.8 H (11.5-14.5) % Plt Count 108 L (140-400) K/mcL MPV 11.9 (9.4-12.4) fL Immature Gran % 0.5 (0-4) % Seg Neutrophils % 80.6 % Lymphocytes % 10.9 % Monocytes % 6.8 % Eosinophils % 0.7 % Basophils % 0.5 % Neutrophils # 4.9 (1.6-8.9) K/mcL Lymphocytes # 0.7 (0.6-4.6) K/mcL Monocytes # 0.4 (0.0-1.3) K/mcL Eosinophils # 0.0 (0.0-0.6) K/mcL Basophils # 0.0 (0.0-0.2) K/mcL Sodium 131 L (136-145) mEq/L Potassium 5.0 (3.5-5.1) mEq/L Chloride 93 L (98-107) mEq/L Carbon Dioxide 21 L (23-29) mEq/L BUN 96 H (8-23) mg/dL Creatinine 7.07 H (0.70-1.30) mg/dL Est GFR ( Amer) 9 L (> 60) Est GFR (Non-Af Amer) 8 L (> 60) BUN/Creatinine Ratio 14 (6-26) Glucose 187 H (70-105) mg/dL Calculated Osmolality 307 H (280-300) Calcium 8.7 (8.6-10.3) mg/dL Troponin I 0.06 H* (< 0.04) ng/mL B-Natriuretic Peptide 1318 H (Less than 100) pg/mL - Radiology Data Radiology results reviewed: Yes I reviewed the patient's radiology results. Chest X-Ray 04/25/19 13:19 IMPRESSION: Cardiomegaly with bilateral nvpv-[id number]-fusj-right pleural effusions and interstitial pulmonary edema suggesting CHF. D/ / 04/25/2019 13:32:49 Mp Campos MD / linda Interpreting Provider: Mp Campos MD - EKG Data EKG #1 EKG attestation: Yes I reviewed and interpreted this EKG. EKG results narrative: EKG shows age fibrillation at a rate of 67 bpm, QRS duration 101, QTC of 440. No evidence of STEMI and EKG. This compared to previous EKG on 12/18/18 which showed atrial fibrillation however
--- NOTE | 2019-04-25 14:21 | Emergency Department Note ---
Disposition Clinical Impression: ESRD (end stage renal disease) on dialysis Congestive heart failure (CHF) Qualifiers: Heart failure type: combined systolic and diastolic Heart failure chronicity: acute on chronic Qualified Code(s): I50.43 - Acute on chronic combined systolic (congestive) and diastolic (congestive) heart failure Disposition: Still a Patient Forms: ED Satisfaction Letter Time of Disposition: 14:21 General Adult HPI - General Chief complaint: ED Shortness of Breath/Dyspnea Stated complaint: LINWOOD,Fluid Retention Time Seen by Provider: 04/25/19 13:02 Source: patient, family Mode of arrival: ambulatory Limitations: no limitations Nursing Notes Reviewed: Yes Vital Signs Reviewed: Yes - History of Present Illness HPI Narrative: Attestation note: Patient was seen with the emergency medicine resident/nurse practitioner/physician medical assistant prn/transitional resident/medical student: Dr. ROSIE DALEY. This includes well any procedures performed for this significant portion thereof which are to include EKG and bedside ultrasound I have personally performed a face to face evaluation on this patient. I have reviewed and agree with history and physical examination patient management and disposition. Briefly the salient points of the case are as follows: 79-year-old male history of end-stage renal disease on dialysis is normally cared for at [facility] presents with family for increasing shortness of breath. Patient last for dialysis session was Saturday last session on Saturday they stopped this his blood pressure was low and the patient here for further evaluation. Patient has some mild wheezing and shortness of breath no chest pain dyspnea little tired no fever or vomiting has some bibasilar rales bibasilar wheezing patient getting DuoNeb screening labs chest x-ray shows increase fluid markings and cardiomegaly consistent with CHF. We will obtain ED lab work and we will admit we will consult with nephrology patient will likely need to be admitted for urgent dialysis. Admission disposition pending. Pain Scale: 0 - Related Data Home Medications Medication Instructions Recorded Confirmed Amlodipine Besylate 10 mg PO DAILY 10/07/16 12/19/18 Glimepiride [Amaryl] 4 mg PO BID 10/07/16 11/23/17 Insulin Glargine,Hum.rec.anlog 10 unit SQ HS 10/07/16 11/23/17 [Lantus Solostar] Lisinopril [Zestril] 40 mg PO DAILY 10/07/16 11/23/17 Lovastatin [Mevacor] 20 mg PO HS 10/07/16 11/23/17 cloNIDine HCl [CloNIDine HCl] 0.1 mg PO TID 10/07/16 12/19/18 Metoprolol [Lopressor] 100 mg PO BID 10/08/16 12/19/18 Albuterol Sulfate [Proventil 2 puff IH Q4HR PRN 12/28/16 11/23/17 Inhaler] Furosemide [Lasix] 80 mg PO TID 12/28/16 12/19/18 Omeprazole [PriLOSEC] 20 mg PO DAILY 12/28/16 11/23/17 hydrALAZINE [HydrALAZINE] 25 mg PO BID 12/28/16 11/23/17 Mirtazapine [Remeron] 15 mg PO HS 07/16/17 11/23/17 Cilostazol 50 mg PO BID 11/23/17 11/23/17 Insulin Glargine,Hum.rec.anlog 12 unit SQ QAM 11/23/17 11/23/17 [Lantus Solostar] Sevelamer [Renvela] 1,600 mg PO TIDWM 11/23/17 11/23/17 Temazepam [Restoril] 30 mg PO HS 11/23/17 12/19/18 Zolpidem Tartrate 5 mg PO HS PRN 11/23/17 12/19/18 Pregabalin [Lyrica] 100 mg PO DAILY 12/19/18 12/19/18 Previous Rx's Medication Instructions Recorded Acetaminophen [Tylenol] 650 mg PO Q6HR PRN #60 tablet 10/08/16 Nitroglycerin 0.4 mg SL Q5MIN PRN #30 tab.subl 10/08/16 levoFLOXacin [Levaquin] 750 mg PO DAILY #2 tablet 07/30/18 Allergies Allergy/AdvReac Type Severity Reaction Status Date / Time No Known Allergies Allergy Verified 07/30/18 09:37 Constitutional: Denies: fever Cardiovascular: Denies: chest pain Respiratory: Reports: dyspnea Gastrointestinal: Denies: abdominal pain, nausea, vomiting Musculoskeletal: Denies: back pain, neck pain Neurological: Denies: weakness, numbness, paresthesias Past Medical History - Past Medical History Medical history: Reports: CHF, coronary artery disease, diabetes, dialysis, hyperlipidemia, hypertension, myocardial infarction, renal disease Surgical history: Reports: coronary bypass (CABG), pacemaker/AICD Psychiatric history: Reports: no psych history - Social History Smoking Status: Current every day smoker Smokeless Tobacco Status: No Alcohol use: Reports: none Drug use: Reports: none Physical Exam - General Limitations: no limitations General appearance: alert, in no apparent distress Course Vital Signs Temperature 97.7 F 04/25/19 12:56 Pulse Rate 68 04/25/19 12:56 Respiratory Rate 04/25/19 12:56 Blood Pressure 109/57 04/25/19 12:56 O2 Sat by Pulse Oximetry 93 04/25/19 12:56 Temperature 97.7 F 04/25/19 13:26 Pulse Rate 68 04/25/19 13:26 Respiratory Rate 04/25/19 13:26 Blood Pressure 109/57 04/25/19 13:26 O2 Sat by Pulse Oximetry 93 04/25/19 13:26 Oxygen Delivery Oxygen Delivery Room Air Medical Decision Making - Lab Data Result diagrams: 04/25/19 13:30 04/25/19 13:30 Lab Results 04/25/19 04/25/19 Range/Units 13:30 13:30 WBC 6.0 (4.3-11.1) K/mcL RBC 2.93 L (4.19-5.50) M/mcL Hgb 9.5 L (12.9-16.9) g/dL Hct 29.3 L (37.5-50.1) % MCV 100.0 (83.0-100.0) fL MCH 32.4 (28.0-33.3) pg MCHC 32.4 (31.6-35.5) g/dL RDW 14.8 H (11.5-14.5) % Plt Count 108 L (140-400) K/mcL MPV 11.9 (9.4-12.4) fL Immature Gran % 0.5 (0-4) % Seg Neutrophils % 80.6 % Lymphocytes % 10.9 % Monocytes % 6.8 % Eosinophils % 0.7 % Basophils % 0.5 % Neutrophils # 4.9 (1.6-8.9) K/mcL Lymphocytes # 0.7 (0.6-4.6) K/mcL Monocytes # 0.4 (0.0-1.3) K/mcL Eosinophils # 0.0 (0.0-0.6) K/mcL Basophils # 0.0 (0.0-0.2) K/mcL Sodium 131 L (136-145) mEq/L Potassium 5.0 (3.5-5.1) mEq/L Chloride 93 L (98-107) mEq/L Carbon Dioxide 21 L (23-29) mEq/L BUN 96 H (8-23) mg/dL Creatinine 7.07 H (0.70-1.30) mg/dL Est GFR ( Amer) 9 L (> 60) Est GFR (Non-Af Amer) 8 L (> 60) BUN/Creatinine Ratio 14 (6-26) Glucose 187 H (70-105) mg/dL Calculated Osmolality 307 H (280-300) Calcium 8.7 (8.6-10.3) mg/dL
[2019-04-25 14:22] LABS: Troponin I 0.06 ng/mL (< 0.04)
[2019-04-25] MEDS ORDERED: Naloxone 0.4 MG/ML INJ IVP PRN (15:18)
[2019-04-25] MEDS ORDERED: 0.9 % Sodium Chloride 250 ML IVC PRN (15:31)
[2019-04-25] MEDS ORDERED: Albumin 25% 25gram/100mL 25 GM/100 ML IV.SOLN IVPB PRN (15:31)
[2019-04-25] MEDS ORDERED: 0.9 % Sodium Chloride 1,000 ML PRIME SCH (15:45)
--- NOTE | 2019-04-25 16:12 | Internal Med History&Physical ---
Date of Encounter: 04/25/19 Time of Encounter: 15:00 Internal Medicine - H&P: HPI Chief complaint: Shortness of breath for about 3 days History of present illness: Mr. Bassett is a 79 year old male with omh of ESRD-DD, chronic combined systolic and diastolic CHF, hypertension, tobacco abuse presenting with complaints of worsened shortness of breath and leg swelling of about 3 days duration. Patient says he does twice weekly dialysis on mondays and fridays and still makes urine. He went for dialysis yesterday and says heis dialysis couldn't be completed because his blood pressure was too low. Since he's been home, he has been more short of breath and has had worsening swelling in lower extremities. Complains of an occasional cough and difficulty lying flat. Denies any fevers, chills, nausea, vomiting or chest pain In the ER, a chest xray was done showing bilateral pleural effusion and he is being admitted for further management. Nephrology was consulted from the ER. 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 fistula rfa - Social History Smoking Status: Current every day smoker Smokeless Tobacco Status: No Alcohol use: none Drug use: none - Family History Mother Adopted: No Family Member Ethnicity: Non- Living Status: Hx Family Cardiac Disorders: Yes (HTN) Hx Family Respiratory Disorders: No Hx Family Cancer: Yes (Lung) Hx Family Endocrine Disorder: Yes (DM) Hx Family Neuromuscular Disorders: No Hx Family Neurologic Disorders: No Hx Family HEENT Disorders: No Hx Family Autoimmune Disorders: No Father Family Member Ethnicity: Non- Living Status: Brother Family Member Ethnicity: Non- Living Status: Hx Family Cancer: Yes (Basal cell carcinoma) Sister Family Member Ethnicity: Non- Living Status: Still Living Internal Medicine - H&P: Meds Amlodipine Besylate 10 mg PO DAILY 10/07/16 [History] Lisinopril [Zestril] 40 mg PO DAILY 10/07/16 [History] Lovastatin [Mevacor] 20 mg PO HS 10/07/16 [History] cloNIDine HCl [CloNIDine HCl] 0.1 mg PO TID 10/07/16 [History] Metoprolol [Lopressor] 100 mg PO BID 10/08/16 [History] Temazepam [Restoril] 30 mg PO HS 11/23/17 [History] Aspirin [Adult Aspirin] 81 mg PO DAILY 04/25/19 [History] Insulin ASPART [NovoLOG] 5 unit SQ DAILY@1700 04/25/19 [History] Insulin Glargine,Hum.rec.anlog [Basaglar Kwikpen U-100] 11 unit SQ BID 04/25/19 [History] Pregabalin [Lyrica] 150 mg PO DAILY 04/25/19 [History] Renal Vitamin [Renal Caps Softgel] 1 mg PO DAILY 04/25/19 [History] Tamsulosin HCl [Flomax] 0.4 mg PO DAILY 04/25/19 [History] Torsemide 100 mg PO BID 04/25/19 [History] Allergy/AdvReac Type Severity Reaction Status Date / Time No Known Allergies Allergy Verified 07/30/18 09:37 All Systems PM: A 10-system review of systems was performed and is negative for pertinent findings except as documented above in the HPI. - Constitutional Constitutional: no chills, no fever(s), no night sweats - EENT Eyes: no change in vision, no discharge, no pain, no photophobia Ears: no ear discharge, no ear pain, no tinnitus Nose, mouth and throat: no dysphagia, no nasal discharge, no neck pain, no sore throat - Cardiovascular Cardiovascular ROS IM: dyspnea, no chest pain, no diaphoresis, no lightheadedness, no palpitations, no syncope - Respiratory Respiratory: cough, dyspnea, no wheezing, no excessive phlegm production - Gastrointestinal Gastrointestinal: no abdominal pain, no diarrhea, no hematemesis, no hematochezia, no melena, no nausea, no vomiting - Musculoskeletal Musculoskeletal ROS IM: no numbness, no tingling - Integumentary Integumentary IM: no rash, no unusual bruising - Neurological Neurological ROS: no confusion, no convulsions, no focal weakness, no numbness, no tingling, no tremor(s) - Hematologic/Lymphatic Hematologic/Lymphatic: no easy bruising - Constitutional Vitals: Temp Pulse Resp BP Pulse Ox 97.7 F 68 17 103/51 91 04/25/19 13:26 04/25/19 13:26 04/25/19 15:57 04/25/19 15:57 04/25/19 14:44 Exam: gen. Mild respiratory distress CVs. Bilateral crackles on lungs Ext. 3+ pitting edema bilaterally - Head Head exam: Present: atraumatic, normocephalic - Eye Eye exam: Present: PERRL, conjuntiva pink, sclera anicteric Pupils: Present: PERRL - Neck Neck exam general surgery: Present: supple, trachea midline. Absent: lymphadenopathy - Respiratory Respiratory exam: Present: decreased breath sounds, rales. Absent: accessory muscle use, rhonchi, wheezes - Cardiovascular Cardiovascular exam: Present: RRR, +S1, +S2. Absent: diastolic murmur, gallop, rubs, systolic murmur - GI/Abdominal GI/Abdominal exam: Present: normal bowel sounds, soft, no peritoneal signs. Absent: distended, tenderness - Extremities Exam Extremities exam: Present: warm, radial pulses palpable and symmetrical. Absent: calf tenderness, cyanotic, pedal edema - Neurological Exam Neurological exam: Present: CN II-XII intact, oriented X3, no focal deficits. Absent: pronater drift, facial droop, speech deficit - Skin Skin exam: Present: dry, intact Internal Med - H&P Results - Labs CBC & Chem 7: 04/25/19 13:30 04/25/19 13:30 Labs: Short CBC 04/25/19 Range/Units 13:30 WBC 6.0 (4.3-11.1) K/mcL Hgb 9.5 L (12.9-16.9) g/dL Hct 29.3 L (37.5-50.1) % Plt Count 108 L (140-400) K/mcL Neutrophils # 4.9 (1.6-8.9) K/mcL BMP 04/25/19 13:30 Sodium 131 L Potassium 5.0 Chloride 93 L Carbon Dioxide 21 L BUN 96 H Creatinine 7.07 H Glucose 187 H Calcium 8.7 Cardiac Enzymes 04/25/19 Range/Units 13:30 Troponin I 0.06 H* (< 0.04) ng/mL - Impressions ITS Impressions Chest X-Ray 07/20/19 13:19 IMPRESSION: Cardiomegaly with bilateral [id number]-right pleural effusions and interstitial pulmonary edema suggesting CHF. D/ / 04/25/2019 13:32:49 Mp Campos MD / linda Interpreting Provider: Mp Campos MD - Assessment and Plan (1) ESRD (end stage renal disease) on dialysis Current Visit: Yes Status: Chronic Assessment and plan: Pt comes in with volume overload secondary to missed dialysis CXR showed bilateral pleural effusions. Nephrology consulted and plan for dialysis today Will repeat cxr in am and assess for need for thoracentesis (2) Acute exacerbation of CHF (congestive heart failure) Current Visit: Yes Status: Acute Assessment and plan: Pt has acute worsening of chronic systolic and diastolic CHF Still makes urine and is on Bumex at home Will start on Lasix IV BID Qualifiers: Heart failure type: combined systolic and diastolic Qualified Code(s): I50.43 - Acute on chronic combined systolic (congestive) and diastolic (congestive) heart failure (3) Hypertension Current Visit: Yes Status: Acute Assessment and plan: Hold BP meds due to borderline hypotension Qualifiers: Qualified Code(s): I10 - Essential (primary) hypertension (4) Diabetes mellitus Current Visit: Yes Status: Chronic Assessment and plan: Continue insulin and monitor fingersticks Qualifiers: Diabetes mellitus type: type 2 Diabetes mellitus salvage determiner insulin use: without salvage determiner use Diabetes mellitus complication status: with kidney complications Diabetes mellitus complication detail: with chronic kidney disease Chronic kidney disease stage: on chronic dialysis Qualified Code(s): E11.22 - Type 2 diabetes mellitus with diabetic chronic kidney disease; N18.6 - End stage renal disease; Z99.2 - Dependence on renal dialysis (5) DVT prophylaxis Current Visit: Yes Status: Acute Assessment and plan: On heparin sc - Time Spent With Patient Total time spent is greater than 50% in coordination of care (as documented) at patient's floor/unit and/or counseling patient:
[2019-04-25] MEDS: *HR* Heparin 5,000 UNIT/ML VIAL SQ SCH (18:02)
[2019-04-25] MEDS: Temazepam 15 MG CAPSULE PO SCH (21:21)
[2019-04-25] MEDS: Insulin DETEMIR 100 UNIT/ML X5UNITS SQ SCH (21:21)
[2019-04-25] MEDS: Furosemide 40 MG/4 ML VIAL IVP SCH (21:21)
[2019-04-25] MEDS ORDERED: D5% in Water 1,000 ML IVC PRN (23:57)
[2019-04-25] MEDS ORDERED: *HR* Dextrose 50 % in Water (Syg) 50 ML SYRINGE IVP PRN (23:57)
[2019-04-25] MEDS ORDERED: Dextrose Gel 15 GM/37.5 ML TUBE PO PRN ×2 (23:57)
--- NOTE | 2019-04-26 00:51 | Electrocardiograph Report ---
[employer] 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
[2019-04-26] MEDS: *HR* Heparin 5,000 UNIT/ML VIAL SQ SCH ×2 (04:09→17:10)
[2019-04-26] MEDS ORDERED: Ipratropium/Albuterol Neb 3 ML IH PRN (04:28)
[2019-04-26 07:15] LABS: Basophils % 0.5 %; Eosinophils % 0.3 %; Hematocrit 30.8 % (37.5-50.1); Immature Granulocytes % 0.8 % (0-4); Lymphocytes # 0.4 K/mcL (0.6-4.6); Lymphocytes % 7.1 %; Mean Corpuscular HGB Conc 32.5 g/dL (31.6-35.5); Mean Corpuscular Hemoglobin 32.5 pg (28.0-33.3); Mean Platelet Volume 11.6 fL (9.4-12.4); Monocytes # 0.6 K/mcL (0.0-1.3); Monocytes % 9.2 %; Neutrophils # 5.1 K/mcL (1.6-8.9); Platelet Count 112 K/mcL (140-400); Red Blood Count 3.08 M/mcL (4.19-5.50); Red Cell Distribution Width 14.7 % (11.5-14.5); Segmented Neutrophils % 82.1 %; White Blood Count 6.2 K/mcL (4.3-11.1)
[2019-04-26 07:31] LABS: Potassium 4.3 mEq/L (3.5-5.1)
[2019-04-26 07:36] LABS: Calcium 8.9 mg/dL (8.6-10.3); Magnesium 2.2 mg/dL (1.6-2.6); Phosphorous 6.2 mg/dL (2.7-4.5)
--- NOTE | 2019-04-26 07:46 | Internal Med Progress Note ---
Hospitalist Progress Note - Encounter Date of Encounter: 04/26/19 Time of Encounter: 07:40 - Subjective Interval History: Had dialysis overnight - Exam Vitals: Temp Pulse Resp BP Pulse Ox 98.4 F 86 18 124/56 95 04/26/19 06:49 04/26/19 06:49 04/26/19 06:49 04/26/19 06:49 04/26/19 06:49 Exam: gen. Mild respiratory distress HEENT. PERRLA CVs. S1 s2 WNL Resp. Bilateral crackles on lungs GI. SOft, NT, ND, +BS Ext. 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 Echo came back showing worsening cardiomyopathy with EF 25% Cardiology consulted and recs appreciated for possible ischemic workup (2) ESRD (end stage renal disease) on dialysis Current Visit: Yes Status: Chronic Assessment and Plan: Pt comes in with volume overload secondary to missed dialysis CXR showed bilateral pleural effusions. Nephrology consulted and plan for dialysis today Will repeat cxr in am and assess for need for thoracentesis (3) Hypertension Current Visit: Yes Status: Acute Assessment and Plan: Hold BP meds due to borderline hypotension (4) Diabetes mellitus Current Visit: Yes Status: Chronic Assessment and Plan: Continue insulin and monitor fingersticks (5) DVT prophylaxis Current Visit: Yes Status: Acute Assessment and Plan: On heparin sc - Time Spent with Patient Total time spent is greater than 50% in coordination of care (as documented) at patient's floor/unit and/or counseling patient: Internal Medicine: Result - Labs CBC & Chem 7: 04/26/19 06:56 04/26/19 06:56 Labs: Short CBC 04/25/19 04/26/19 Range/Units 13:30 06:56 WBC 6.0 6.2 (4.3-11.1) K/mcL Hgb 9.5 L 10.0 L (12.9-16.9) g/dL Hct 29.3 L 30.8 L (37.5-50.1) % Plt Count 108 L 112 L (140-400) K/mcL Neutrophils # 4.9 5.1 (1.6-8.9) K/mcL BMP 04/25/19 04/26/19 13:30 06:56 Sodium 131 L 136 Potassium 5.0 4.3 Chloride 93 L 96 L Carbon Dioxide 21 L 28 BUN 96 H 48 H Creatinine 7.07 H 4.71 H Glucose 187 H 168 H Calcium 8.7 8.9 Cardiac Enzymes 04/25/19 Range/Units 13:30 Troponin I 0.06 H* (< 0.04) ng/mL - Impressions Impressions Chest X-Ray 04/25/19 13:19 IMPRESSION: Cardiomegaly with bilateral hntt-jaduszo-itoe-right pleural effusions and interstitial pulmonary edema suggesting CHF. 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
[2019-04-26] MEDS ORDERED: Ipratropium/Albuterol Neb 3 ML IH SCH (08:00)
[2019-04-26] MEDS: Aspirin Enteric Coated 81 MG Tablet PO SCH (08:21)
[2019-04-26] MEDS: Renal Vitamin 1 CAP CAPSULE PO SCH (08:21)
[2019-04-26] MEDS: Insulin DETEMIR 100 UNIT/ML X5UNITS SQ SCH ×2 (08:32→20:34)
[2019-04-26] MEDS: Furosemide 40 MG/4 ML VIAL IVP SCH ×2 (08:32→17:10)
--- NOTE | 2019-04-26 09:45 | Nephrology Consult Note ---
Date of Encounter: 04/26/19 Time of Encounter: 09:15 Assessment and Plan (1) ESRD (end stage renal disease) on dialysis Current Visit: Yes Status: Chronic ESRD, Missed Dialysis and Concern for Fluid Overload s/p HD yesterday for make up. Next HD tentatively planned for Saturday. (2) Acute exacerbation of CHF (congestive heart failure) Current Visit: Yes Status: Acute Qualifiers: Heart failure type: combined systolic and diastolic Qualified Code(s): I50.43 - Acute on chronic combined systolic (congestive) and diastolic (conge stive) heart failure (3) Elevated troponin Current Visit: Yes Status: Acute (4) Hypertension Current Visit: Yes Status: Acute Qualifiers: Qualified Code(s): I10 - Essential (primary) hypertension History of Present Illness - Reason for Consult Consult date: 04/25/19 end stage renal disease Requesting physician: Julio Cesar Richard - Chief Complaint ESRD, Missed Dialysis and Concern for Fluid Overload - History of Present Illness The patient is a very pleasant 79-year-old male with a past medical history of end-stage renal disease on thrice weekly hemodialysis who presented with worsening shortness of breath. Nephrology was consulted to assist with his dialysis. He affirmed feeling short of breath, but reported that he is very hard of hearing, which somewhat limited the ability to obtain a complete history. He did not affirm taking [id number] NSAIDs. He did not affirm missing any dialysis. He says he gets his dialysis with the former [facility] nephrology group in [place], [place]; and their records are not immediately available to me, so will request medical records. He says he only dialyzes for 3 hours he said, but that he makes only little urine per day. He complained of worsening cough and congestion, but he could not find for how long or any pa lliative or provocative factors. He says his right AV fistula has been working well without any problems. 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 fistula rfa - Social History Smoking Status: Current every day smoker Smokeless Tobacco Status: No Alcohol use: none Drug use: none - Family History Mother Adopted: No Family Member Ethnicity: Non- Living Status: Hx Family Cardiac Disorders: Yes (HTN) Hx Family Respiratory Disorders: No Hx Family Cancer: Yes (Lung) Hx Family Endocrine Disorder: Yes (DM) Hx Family Neuromuscular Disorders: No Hx Family Neurologic Disorders: No Hx Family HEENT Disorders: No Hx Family Autoimmune Disorders: No Father Family Member Ethnicity: Non- Living Status: Brother Family Member Ethnicity: Non- Living Status: Hx Family Cancer: Yes (Basal cell carcinoma) Sister Family Member Ethnicity: Non- Living Status: Still Living Medications and Allergies Amlodipine Besylate 10 mg PO DAILY 10/07/16 [History] Lisinopril [Zestril] 40 mg PO DAILY 10/07/16 [History] Lovastatin [Mevacor] 20 mg PO HS 10/07/16 [History] cloNIDine HCl [CloNIDine HCl] 0.1 mg PO TID 10/07/16 [History] Metoprolol [Lopressor] 100 mg PO BID 10/08/16 [History] Temazepam [Restoril] 30 mg PO HS 11/23/17 [History] Aspirin [Adult Aspirin] 81 mg PO DAILY 04/25/19 [History] Insulin ASPART [NovoLOG] 5 unit SQ DAILY@1700 04/25/19 [History] Insulin Glargine,Hum.rec.anlog [Basaglar Kwikpen U-100] 11 unit SQ BID 04/25/19 [History] Pregabalin [Lyrica] 150 mg PO DAILY 04/25/19 [History] Renal Vitamin [Renal Caps Softgel] 1 mg PO DAILY 04/25/19 [History] Tamsulosin HCl [Flomax] 0.4 mg PO DAILY 04/25/19 [History] Torsemide 100 mg PO BID 04/25/19 [History] Allergy/AdvReac Type Severity Reaction Status Date / Time No Known Allergies Allergy Verified 07/30/18 09:37 Review of Systems All Systems: reviewed and no additional remarkable complaints except as stated Exam - Vital Signs Vital signs: Initial Vital Signs Temp Pulse Resp BP Pulse Ox 97.7 F 68 20 109/57 93 04/25/19 12:56 04/25/19 12:56 04/25/19 12:56 04/25/19 12:56 04/25/19 12:56 Vital Signs - Last 8 Hours Temp Pulse Resp BP Pulse Ox 04/26/19 06:49 98.4 F 86 18 124/56 95 04/26/19 05:09 20 93 04/26/19 03:31 98.8 F 89 22 130/68 90 Intake and Output 04/25/19 04/26/19 04/26/19 23:59 07:59 15:59 Intake Total 720 / 720 0 / 360 360 / 360 Output Total 4600 / 4600 0 / 0 Balance -3880 / -3880 0 / 360 360 / 360 Intake: Oral 120 / 120 0 / 360 360 / 360 Intake, Rinseback and Flushes 600 / 600 Output: Urine 0 / 0 0 / 0 Total Dialysis (HD) Output 4600 / 4600 Other: Meal Breakfast Percent of Meal Consumed 50% Blood Glucose* 151 148 Hemodialysis Net Fluid Removed 4000 (mL) - General Appearance General appearance: well-developed, chronically ill, fatigue, frail EENT: ATNC, PERRL, mucous membranes moist Neck: no JVD, supple Respiratory: no kyphosis, course breath sounds Cardiology: edema, regular rate, regular rhythm, normal S1, normal S2 - Dialysis Access Dialysis Vascular Access: Arteriovenous Fistula (Right forearm AVF) thrill: Yes bruit: Yes Gastrointestinal: normoactive bowel sounds, no tenderness, no guarding Integumentary: warm and dry, ecchymotic Neurologic: no focal deficit, no asterixis, alert and oriented x3 Additional Comments: Hard of hearing Musculoskeletal: no cyanosis, no clubbing Psychiatric: mood/affect appropriate, cooperative Results - Lab Results 04/27/19 05:03 04/27/19 05:03 Most recent lab results 04/26/19 06:56 Calcium 8.9 Phosphorus 6.2 H Magnesium 2.2 Consult Discharge Plan - Plan Referrals: NONE,PCP [Non-Partnered Physician] -
[2019-04-26] MEDS: Albuterol 2.5 MG/3 ML NEBULIZER IH SCH ×5 (10:37→23:03)
[2019-04-26] MEDS: Acetylcysteine 10% 2 ML INHSOL IH SCH ×2 (15:40→23:03)
[2019-04-26] MEDS ORDERED: GuaiFENesin Liq 200 MG/10 ML UDC PO PRN (17:21)
[2019-04-26] MEDS ORDERED: Pregabalin 75 MG CAPSULE PO SCH (19:01)
[2019-04-26] MEDS: Temazepam 15 MG CAPSULE PO SCH (20:34)
[2019-04-27] MEDS: Albuterol 2.5 MG/3 ML NEBULIZER IH SCH ×2 (03:46→07:27)
[2019-04-27] MEDS: *HR* Heparin 5,000 UNIT/ML VIAL SQ SCH (05:10)
[2019-04-27 05:22] LABS: Basophils % 0.2 %; Hematocrit 29.4 % (37.5-50.1); Hemoglobin 9.7 g/dL (12.9-16.9); Immature Granulocytes % 0.6 % (0-4); Lymphocytes # 0.5 K/mcL (0.6-4.6); Mean Corpuscular Hemoglobin 32.9 pg (28.0-33.3); Mean Corpuscular Volume 99.7 fL (83.0-100.0); Mean Platelet Volume 11.4 fL (9.4-12.4); Monocytes # 0.8 K/mcL (0.0-1.3); Monocytes % 8.8 %; Neutrophils # 7.2 K/mcL (1.6-8.9); Platelet Count 111 K/mcL (140-400); Red Blood Count 2.95 M/mcL (4.19-5.50); Red Cell Distribution Width 14.9 % (11.5-14.5); Segmented Neutrophils % 84.4 %; White Blood Count 8.5 K/mcL (4.3-11.1)
[2019-04-27 05:36] LABS: Lactate Dehydrogenase 125 Units/L (140-271)
[2019-04-27 05:39] LABS: Calcium 8.8 mg/dL (8.6-10.3); Phosphorous 5.8 mg/dL (2.7-4.5); Potassium 4.5 mEq/L (3.5-5.1)
--- NOTE | 2019-04-27 07:14 | Event Note ---
Date of Encounter: 04/27/19 Time of Encounter: 06:56 Alerted by pts. nurse CASIE Fairbanks that the patient was found on the floor of his room. Fall was unwitnessed. Patient is ESRD on dialysis. Went to see the patient immediately who was resting in bed. I asked the patient what happened and he stated he fell on the floor. Stated he did not hit his head but was unclear of the circumstances. Pt. refused his a.m. heparin SQ. Patient has a skin tear to the right elbow. STAT CT of the head/brain w/o contrast ordered and STAT XR of the right arm ordered. Falls precautions and up with assist ordered. Patient informed he was being sent for XR of the right arm and CT of the head. Pt. instructed to not get out of bed w/o assistance from this point on. Pt. expressed resistance to this. Patient told again he is not to get out of bed WITHOUT ASSISTANCE D/T FALL. Nurse instructed to file an incident report and continue monitoring the pt. very closely for any neurological or behavioral changes.
[2019-04-27] MEDS ORDERED: 0.9 % Sodium Chloride 250 ML IVC PRN (07:22)
[2019-04-27] MEDS: Acetylcysteine 10% 2 ML INHSOL IH SCH (07:27)
[2019-04-27] MEDS ORDERED: Ipratropium/Albuterol Neb 3 ML IH PRN (07:35)
[2019-04-27] MEDS: Furosemide 40 MG/4 ML VIAL IVP SCH (07:49)
[2019-04-27] MEDS: Renal Vitamin 1 CAP CAPSULE PO SCH (07:49)
[2019-04-27] MEDS: Aspirin Enteric Coated 81 MG Tablet PO SCH (07:49)
[2019-04-27] MEDS: Insulin DETEMIR 100 UNIT/ML X5UNITS SQ SCH (07:56)
[2019-04-27 08:19] LABS: INR 1.3; Prothrombin Time 15.2 Seconds (9.4-12.1)
--- NOTE | 2019-04-27 08:55 | Cardiology Consult Note ---
Date of Encounter: 04/27/19 Time of Encounter: 08:54 Assessment and Plan (1) Acute exacerbation of CHF (congestive heart failure) Current Visit: Yes Status: Acute - Patient has a known history of congestive heart failure - CXR on 04/25: Cardiomegaly with b/l with L>R effusions, interstitial pulmonary edema suggestive of CHF - TTE 04/26: EF 25-30%, severe global LV systolic dysfunction, normal RV size with severe global hypokinesis - These findings are new compared to previous TTE on 12/29/16, which demonstrated EF of 45% - Etiology for worsening ejection fraction unknown at this time - Normally takes Bumex at home Plan: - Continue diuresis with Lasix - Strict I/Os, daily weights - Due to patient's worsening systolic function, a left heart catheterization was offered to patient to rule out ischemic cause. Patient declined this, as he says that he already sees a diaper folder and does not require our services. We recommend optimizing medical therapy and diuresis at this time. He should adhere to a low-sodium, fluid restricted diet. He may also require dialysis 3 times a week instead of 2 times per week. He should follow-up with his cardi ologist in the outpatient setting 2-4 weeks after discharge. 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: without oil heaterman use Diabetes mellitus complication status: with kidney complications Diabetes mellitus complication detail: with chronic kidney disease Chronic kidney disease stage: on chronic dialysis Qualified Code(s): E11.22 - Type 2 diabetes mellitus with diabetic chronic kidney disease; N18.6 - End stage renal disease; Z99.2 - Dependence on renal dialysis (4) DVT prophylaxis Current Visit: Yes Status: Acute - SQ heparin Discussion w patient/family: The assessment and plan as outlined above was discussed with the patient and/or family members who expressed understanding and agreement. All questions were answered. Thank you for involving us in the care of your patient. Please call with any questions. History of Present Illness Consult date: 04/27/19 Consult reason: Worsening systolic function Chief complaint: Shortness of breath History of present illness: Mr. Bassett is a 79-year-old male with a PMH of ESRD on dialysis, CHF, CAD s/p CABG, pacemaker/AICD, DM, HLD, and HTN who presented to [facility] on 04/25 with shortness of breath and lower extremity edema x3 days. Patient undergoes dialysis once per week. He was unable to complete his dialysis session on Saturday due to hypotension. Also reported worsening orthopnea. On arrival, vitals showed a BP of 109/57 and a respiratory rate of 20. CXR showed cardiomegaly with b/l with L>R effusions, interstitial pulmonary edema suggestive of CHF. BNP was 1318, and troponin was elevated at 0.06. He was st arted on Lasix 40 IV BID. TTE showed EF 25-30%, severe global LV systolic dysfunction, normal RV size with severe global hypokinesis. These findings are new compared to previous TTE on 12/29/16, which demonstrated EF of 45%. The cardiology service is consulted for worsening cardiomyopathy and possible ischemic workup. Of note, patient fell this morning from his bed. A CT was ordered of the head to rule out intracranial hemorrhage, but patient declined. During interview this morning, patient states he feels fine. He states that he sees a diaper folder in the outpatient setting, and "does not require our services." He denied chest pain and shortness of breath, but otherwise was non-cooperative with interview. He stated that he wanted to go home and that "he did not need to speak to us." Given the patient's worsening systolic function, a left heart catheterization was offered to patient, which he declined. Recommend continued diuresis and close follow-up with his diaper folder in the outpatient setting. Patient should adhere to a low-sodium, fluid restricted diet. 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 fistula rfa - Social History Smoking Status: Current every day smoker Smokeless Tobacco Status: No Alcohol use: none Drug use: none - Family History Mother Adopted: No Family Member Ethnicity: Non- Living Status: Hx Family Cardiac Disorders: Yes (HTN) Hx Family Respiratory Disorders: No Hx Family Cancer: Yes (Lung) Hx Family Endocrine Disorder: Yes (DM) Hx Family Neuromuscular Disorders: No Hx Family Neurologic Disorders: No Hx Family HEENT Disorders: No Hx Family Autoimmune Disorders: No Father Family Member Ethnicity: Non- Living Status: Brother Family Member Ethnicity: Non- Living Status: Hx Family Cancer: Yes (Basal cell carcinoma) Sister Family Member Ethnicity: Non- Living Status: Still Living Medications and Allergies Amlodipine Besylate 10 mg PO DAILY 10/07/16 [History] Lisinopril [Zestril] 40 mg PO DAILY 10/07/16 [History] Lovastatin [Mevacor] 20 mg PO HS 10/07/16 [History] cloNIDine HCl [CloNIDine HCl] 0.1 mg PO TID 10/07/16 [History] Metoprolol [Lopressor] 100 mg PO BID 10/08/16 [History] Temazepam [Restoril] 30 mg PO HS 11/23/17 [History] Aspirin [Adult Aspirin] 81 mg PO DAILY 04/25/19 [History] Insulin ASPART [NovoLOG] 5 unit SQ DAILY@1700 04/25/19 [History] Insulin Glargine,Hum.rec.anlog [Basaglar Kwikpen U-100] 11 unit SQ BID 04/25/19 [History] Pregabalin [Lyrica] 150 mg PO DAILY 04/25/19 [History] Renal Vitamin [Renal Caps Softgel] 1 mg PO DAILY 04/25/19 [History] Tamsulosin HCl [Flomax] 0.4 mg PO DAILY 04/25/19 [History] Torsemide 100 mg PO BID 04/25/19 [History] Allergy/AdvReac Type Severity Reaction Status Date / Time No Known Allergies Allergy Verified 07/30/18 09:37 ROS unobtainable: other (Due to patient noncooperation) All Systems Review: The remainder of the systems were reviewed and are negative - Cardiovascular Cardiovascular: no chest pain at rest, no dyspnea at rest Physical Examination Vital Signs, Last 4 Hours Temp Pulse Resp BP Pulse Ox 04/27/19 07:28 18 95 04/27/19 06:57 97.6 F 106 18 108/62 96 General: Conversant HEENT: Atraumatic, Normocephaly Cardiac: Reg Rate and Rhythm, Normal S1 and S2, No Murmur Lungs: Other (Diminished breath sounds bilaterally, bibasilar crackles) Neuro: Alert and responsive Abdomen: Soft, Non-Tender Skin: Other (Bruising present on arms bilaterally) Extremities: Other (+2 pitting edema in bilateral lower extremities) Results 04/27/19 05:03 04/27/19 05:03 Lab Results 04/27/19 04/27/19 04/27/19 05:03 05:03 07:39 WBC 8.5 Hgb 9.7 L Hct 29.4 L Plt Count 111 L INR 1.3 Sodium 136 Potassium 4.5 Chloride 95 L Carbon Dioxide 24 BUN 59 H Creatinine 5.54 H Glucose 109 H Calcium 8.8 Magnesium 2.0 Consult Discharge Plan - Plan Referrals: [facility] [Outside] NONE,PCP [Non-Partnered Physician] -
--- NOTE | 2019-04-27 09:29 | Nephrology Progress Note ---
Date of Encounter: 04/27/19 Time of Encounter: 09:00 - Assessment and Plan (1) ESRD (end stage renal disease) on dialysis Current Visit: Yes Status: Chronic End-stage renal disease on thrice weekly hemodialysis: I reviewed the patient's labs, vital signs, progress notes, imaging and medication lists, which required complex evaluation and management and medical decision making to compose the patient's dialysis orders. HD today for Saturday and then his next tentative dialysis would be planned for Saturday. For patients with end-stage renal disease, as always, I recommend following strict I's and O's, daily weights, renal diet, avoidance of nephrotoxic agents, renal dosing. (2) Acute exacerbation of CHF (congestive heart failure) Current Visit: Yes Status: Acute Qualifiers: Heart failure type: combined systolic and diastolic Qualified Code(s): I50.43 - Acute on chronic combined systolic (congestive) and diastolic ( congestive) heart failure (3) Elevated troponin Current Visit: Yes Status: Acute (4) Hypertension Current Visit: Yes Status: Acute Qualifiers: Qualified Code(s): I10 - Essential (primary) hypertension Subjective Principal diagnosis: ESRD and shortness of breath Interval history: The patient was seen and examined earlier today, and he is being prepared to hav e a thoracentesis today, according to his nurse. He did not affirm nausea, vomiting, or diarrhea, but he did not affirm having shortness of breath. Objective - Vital Signs Vital signs: Vital Signs Temp Pulse Resp BP Pulse Ox 04/27/19 07:28 18 95 04/27/19 06:57 97.6 F 106 18 108/62 96 04/27/19 04:11 98 F 105 17 120/69 96 04/27/19 03:50 18 82 04/27/19 00:27 98.4 F 103 17 136/72 94 04/26/19 23:10 18 97 04/26/19 20:25 99.5 F 115 17 143/79 95 04/26/19 19:47 16 98 04/26/19 15:40 17 95 04/26/19 15:39 99.0 F 99 18 134/69 95 04/26/19 11:03 97.9 F 87 19 136/66 97 04/26/19 10:53 20 95 Intake and Output 04/26/19 04/27/19 04/27/19 23:59 07:59 15:59 Output Total 450 / 700 0 / 0 Balance -450 / -220 0 / 0 Output: Urine 450 / 700 0 / 0 Other: Weight 70 kg Blood Glucose* 128 96 Patient Weight 04/27/19 23:59 Weight 70 kg - General Appearance Exam: General appearance: well-developed, chronically ill, fatigue, frail EENT: ATNC, PERRL, mucous membranes moist Neck: no JVD, supple Respiratory: no kyphosis, course breath sounds and diminished in the bases Cardiology: edema, regular rate, regular rhythm, normal S1, normal S2 - Dialysis Access Dialysis Vascular Access: Arteriovenous Fistula (Right forearm AVF) thrill: Yes bruit: Yes Gastrointestinal: normoactive bowel sounds, no tenderness, no guarding Integumentary: warm and dry, ecchymotic Neurologic: no focal deficit, no asterixis, alert and oriented x3 Additional Comments: Hard of hearing Musculoskeletal: no cyanosis, no clubbing Psychiatric: mood/affect appropriate, cooperative - Lab 04/27/19 05:03 04/27/19 05:03 Most recent lab results 04/27/19 05:03 Calcium 8.8 Phosphorus 5.8 H Magnesium 2.0 Consult Discharge Plan - Plan Referrals: NONE,PCP [Non-Partnered Physician] -
[2019-04-27 09:53] LABS: Total Protein 5.8 g/dL (6.4-8.9)
[2019-04-27 10:08] LABS: Glucose,Pleural Fluid 122 mg/dL (No Ref Range); LDH,Pleural Fluid 79 Units/L (No Ref Range); Total Protein,Pleural Fluid < 3.0 g/dL
[2019-04-27 11:36] LABS: RBC,Pleural Fluid < 0.002 M/mcL
[2019-04-27 11:37] LABS: Appearance of Pleural Fl Clear (Clear)
--- NOTE | 2019-04-27 13:26 | Procedure Note ---
<Lien Breen - Last Filed: 04/27/19 13:11> Date of procedure: 04/27/19 Pre-op diagnosis: pleural effusion Procedure: A time-out was completed verifying correct patient, procedure, site, positioning, and special equipment if applicable. Ultrasound was used to locate the left sided pleural effusion, the area was marked. The area was cleaned with chlorhexadine and area was draped. Sterile gloves were used and sterile technique was utalized during the procedure. 7 ml of 1% lidocaine was used to anesthetize the surrounding skin. A finder needle was then used to locate fluid and clear yellow fluid was obtained. A 10-blade scalpel used to make the incision. The thoracentesis catheter was then threaded without difficulty. The patient had 1365 ml of clear yellow fluid removed. Dr. Peralta and Dr. Pate was present for the entire procedure. A post-procedure chest x-ray was ordered and the fluid will be sent for several studies. Anesthesia: local Surgeon: Lien Breen Was there an student assistant present: Yes Tax Examining Technician: Dre Bales Estimated blood loss (cc): 1 Specimen: Pleural fluid Condition: stable Disposition: no change <Dre Bales - Last Filed: 04/27/19 18:23> Procedure: I was present during the entire procedure to supervise and support. No complications. CXR without evidence of pneumothorax. Fransisco Bales MD
--- NOTE | 2019-04-27 13:40 | Internal Med Progress Note ---
Hospitalist Progress Note - Encounter Date of Encounter: 04/27/19 Time of Encounter: 14:03 - Subjective Interval History: Mr. Bassett was seen at bedside this morning. Overnight he fell off from his bed CT of the head was ordered but patient declined imaging. He was resting comfortably in bed and reporting continued shortness of breath. He denied any chest pain, fever, chills, nausea or emesis. - Exam Vitals: Temp Pulse Resp BP Pulse Ox 97.7 F 93 22 125/62 95 04/27/19 11:20 04/27/19 11:20 04/27/19 11:20 04/27/19 11:20 04/27/19 11:20 Exam: Gen: Mild respiratory distress. Appears comfortable. Eyes: anicteric sclerae, moist conjunctivae; no lid-lag HENT: Atraumatic; oropharynx clear with moist mucous membranes and no mucosal ulcerations; normal hard and soft palate Neck: Trachea midline; supple, no thyromegaly or lymphadenopathy Cardiac: RRR, no murmur, +S1/S2. No JVD noted. Pulmonary: Crackles bilaterally lower lobes, no wheezes, equal chest expansion Abdomen: soft, nontender, no guarding. No masses or hepatosplenomegaly MSK: ROM intact, no joint swelling noted Extremities: +3 pitting edema bilaterally Skin: Normal temperature, turgor; no rash, ulcers or subcutaneous nodules Neuro: moves all extremities, no focal deficits. Psych: Appropriate mood and behavior. A&Ox3 - Assessment and Plan (1) Pleural effusion Current Visit: Yes Status: Acute Assessment and Plan: Mr. Bassett has history of ESRD echo showed EF of 25-30% worsened than his last echo on 12/29/16. Chest x-ray on 04/27/19 showed (2) Acute exacerbation of CHF (congestive heart failure) Current Visit: Yes Status: Acute (3) HTN (hypertension) Current Visit: No Status: Chronic (4) Diabetes mellitus Current Visit: Yes Status: Chronic (5) DVT prophylaxis Current Visit: Yes Status: Acute (6) ESRD (end stage renal disease) on dialysis Current Visit: Yes Status: Chronic - Time Spent with Patient Total time spent is greater than 50% in coordination of care (as documented) at patient's floor/unit and/or counseling patient: Internal Medicine: Result - Labs CBC & Chem 7: 04/27/19 05:03 04/27/19 05:03 Labs: Short CBC 04/27/19 Range/Units 05:03 WBC 8.5 (4.3-11.1) K/mcL Hgb 9.7 L (12.9-16.9) g/dL Hct 29.4 L (37.5-50.1) % Plt Count 111 L (140-400) K/mcL Neutrophils # 7.2 (1.6-8.9) K/mcL BMP 04/27/19 05:03 Sodium 136 Potassium 4.5 Chloride 95 L Carbon Dioxide 24 BUN 59 H Creatinine 5.54 H Glucose 109 H Calcium 8.8 - ABG Interpretation ABG results: PT/INR, D-dimer PT 15.2 Seconds (9.4-12.1) H 04/27/19 07:39 - Impressions Impressions Chest X-Ray 04/27/19 09:30 IMPRESSION: No definite pneumothorax. Probable right pleural effusion. Bilateral vascular congestion. Serpiginous sclerotic right metaphyseal bony lesion. This may represent an enchondroma in the appropriate setting, however if there is pain MR imaging is recommended. D/ / Hugo Parra MD / Hugo Parra MD Interpreting Provider: Hugo Parra MD Consult Discharge Plan - Plan Referrals: NONE,PCP [Non-Partnered Physician] - (2) Acute exacerbation of CHF (congestive heart failure) Qualifiers: Heart failure type: combined systolic and diastolic Qualified Code(s): I50.43 - Acute on chronic combined systolic (congestive) and diastolic (congestive) heart failure (3) HTN (hypertension) Qualifiers: Hypertension type: essential hypertension Qualified Code(s): I10 - Essential (primary) hypertension (4) Diabetes mellitus Qualifiers: Diabetes mellitus type: type 2 Diabetes mellitus usp insulin use: without intermodal customer service use Diabetes mellitus complication status: with kidney complications Diabetes mellitus complication detail: with chronic kidney disease Chronic kidney disease stage: on chronic dialysis Qualified Code(s): E11.22 - Type 2 diabetes mellitus with diabetic chronic kidney disease; N18.6 - End stage renal disease; Z99.2 - Dependence on renal dialysis
--- NOTE | 2019-04-27 15:08 | Discharge Summary ---
<Lien Breen - Last Filed: 04/27/19 15:53> - NOTES TO OUTPATIENT PROVIDER Notes to Outpatient Provider: Presented to the ED complaining of worsening shortness of breath with underlying ESRD. He underwent echo which showed new EF of 25%. Cardiology was consulted and they recommended further ischemic workup but patient declined. He needs to follow outpatient with his tumbler plater. Additionally recommending CHF diet. Orders not resulted at time of discharge: Pending orders 04/26/19 12:37 Cell Count w Diff, Pleural Fld [BF] Routine pH,Pleural Fluid [BF] Routine Date of Encounter: 04/27/19 Time of Encounter: 15:06 - Discharge Diagnosis (1) ESRD (end stage renal disease) on dialysis Priority: Primary Status: Chronic (2) Acute exacerbation of CHF (congestive heart failure) Priority: Secondary Status: Acute Qualifiers: Heart failure type: combined systolic and diastolic Qualified Code(s): I50.43 - Acute on chronic combined systolic (congestive) and diastolic (congestive) heart failure (3) Pleural effusion Priority: Secondary Status: Acute (4) HTN (hypertension) Priority: Secondary Status: Chronic Qualifiers: Hypertension type: essential hypertension Qualified Code(s): I10 - Essential (primary) hypertension (5) Diabetes mellitus Priority: Secondary Status: Chronic Qualifiers: Diabetes mellitus type: type 2 Diabetes mellitus [place] insulin use: without senior living use Diabetes mellitus complication status: with kidney complications Diabetes mellitus complication detail: with chronic kidney disease Chronic kidney disease stage: on chronic dialysis Qualified Code(s): E11.22 - Type 2 diabetes mellitus with diabetic chronic kidney disease; N18.6 - End stage renal disease; Z99.2 - Dependence on renal dialysis (6) DVT prophylaxis Priority: Secondary Status: Acute Hospital course: Mr. Bassett is a 79 year old male who presented to the ED on 03/26/19 complaining of worsening shortness of breath with bilateral extremity edema. He is on dialysis twice a week and was unable to complete his outpatient dialysis appointment due to low blood pressure. At presentation he had significant 3+ pitting edema bilateral lower extremities. Nephrology was consulted and they recommended continuing dialysis. He underwent dialysis on 04/25/19 additionally had dialysis this morning, 04/27/19. At admission he had a TTE which showed ejection fraction of 25% to 30% with severe global left ventricle systolic dysfunction. Cardiology was consulted and they had considered further workup but Mr. Bassett declined and reported that he has an outpatient tumbler plater and "does not require our services." He had a chest x-ray which showed left-sided pleural effusion and underwent thoracentesis today with 1365 fluid drained. Gram stain and culture of fluid analysis pending. Chest x-ray this morning after thoracentesis completion showed Serpiginous sclerotic right metaphyseal bony lesion. Can consider outpatient workup with an MRI if patient desires. This morning he fell from his bed was unsure as to why he fell, CT image of the head was ordered but patient declined. Recommend continuing dialysis and may need to increase his regimen depending on his sales stock associate's recommendations. Should continue Bumex and CHF diet with restriction of 1.5 L of fluid daily with less than 2 g of salt. Spoke with his over the phone about his treatment plans. She reports that he does frequently fall at home but does not want any workup for the falls. And states "he is extremely stubborn," if he chooses not to do something he will not go forth with it. I did inform her of his poor ejection fraction and she is understanding and reports that he does have an outpatient tumbler plater appointment at [facility]. Discharge discussed with: patient, family - Time Spent with Patient Total time spent providing and/or coordinating discharge services: - Discharge Medications Prescriptions: Continued Amlodipine Besylate 10 mg PO DAILY Lovastatin [Mevacor] 20 mg PO HS Lisinopril [Zestril] 40 mg PO DAILY Metoprolol [Lopressor] 100 mg PO BID Temazepam [Restoril] 30 mg PO HS Tamsulosin HCl [Flomax] 0.4 mg PO DAILY Aspirin [Adult Aspirin] 81 mg PO DAILY Renal Vitamin [Renal Caps Softgel] 1 mg PO DAILY Pregabalin [Lyrica] 150 mg PO DAILY Insulin Glargine,Hum.rec.anlog [Basaglar Kwikpen U-100] 11 unit SQ BID Insulin ASPART [NovoLOG] 5 unit SQ DAILY@1700 Torsemide 100 mg PO BID Discontinued cloNIDine HCl [CloNIDine HCl] 0.1 mg PO TID Home Medications: Amlodipine Besylate 10 mg PO DAILY 10/07/16 [History] Lisinopril [Zestril] 40 mg PO DAILY 10/07/16 [History] Lovastatin [Mevacor] 20 mg PO HS 10/07/16 [History] Metoprolol [Lopressor] 100 mg PO BID 10/08/16 [History] Temazepam [Restoril] 30 mg PO HS 11/23/17 [History] Aspirin [Adult Aspirin] 81 mg PO DAILY 04/25/19 [History] Insulin ASPART [NovoLOG] 5 unit SQ DAILY@1700 04/25/19 [History] Insulin Glargine,Hum.rec.anlog [Basaglar Kwikpen U-100] 11 unit SQ BID 04/25/19 [History] Pregabalin [Lyrica] 150 mg PO DAILY 04/25/19 [History] Renal Vitamin [Renal Caps Softgel] 1 mg PO DAILY 04/25/19 [History] Tamsulosin HCl [Flomax] 0.4 mg PO DAILY 04/25/19 [History] Torsemide 100 mg PO BID 04/25/19 [History] Allergies/Adverse Reactions: Allergy/AdvReac Type Severity Reaction Status Date / Time No Known Allergies Allergy Verified 07/30/18 09:37 Date of admission: 04/27/19 12:37 Primary care physician: Malik Roberts Consults: 04/25/19 15:17 Consult to Nephrology [CONS] Stat Consulting Provider: Kidney Tonya/RONALDO/ESTEFANI/MIKKI Reason for Consult: fluid overload. Missed dialysis Call Completed: Yes 04/25/19 15:31 Consult to Dialysis [CONS] Stat 04/25/19 18:08 Consult to Mortar Mixer [CONS] Routine Reason for SW Consult: HD patient, possible need for further services upon discharge 04/26/19 11:24 Consult to Cardiology [CONS] Routine Comment: Consulting Provider: Cardiology Tonya Reason for Consult: worsening cardiomyopathy with volume overload EF 25% Call Completed: No 04/27/19 07:30 Consult to Dialysis [CONS] ONCE 04/27/19 07:51 Consult to Nurse Navigator [CONS] Routine Comment: Discharging clinician: Lien Breen Anticipated date of discharge: 04/27/19 - Constitutional Vitals: Temp Pulse Resp BP Pulse Ox 97.7 F 93 18 125/62 98 04/27/19 11:20 04/27/19 11:20 04/27/19 14:05 04/27/19 11:20 04/27/19 14:05 Exam: Gen: Vitals noted. No acute distress. Appears comfortable. Eyes: anicteric sclerae, moist conjunctivae; no lid-lag; Pupils equal and reactive to light HENT: Atraumatic; oropharynx clear with moist mucous membranes and no mucosal ulcerations; normal hard and soft palate Neck: Trachea midline; supple, no thyromegaly or lymphadenopathy Cardiac: RRR, no murmur, +S1/S2. No JVD noted. Pulmonary: Crackles bilateral lower lung lobes, equal chest expansion Abdomen: soft, nontender, no guarding. No masses or hepatosplenomegaly MSK: ROM intact, no joint swelling noted Extremities: No calf tenderness, + 2 pitting edema bilateral lower extremities Neuro: moves all extremities, no focal deficits. Psych: Appropriate mood and behavior. A&Ox3 - Patient Status Disposition: Home, Self-Care Condition: Fair Overall status at discharge: patient is progressing back to baseline - Discharge Instructions Follow Up With: Malik Roberts DO [Primary Care Provider] - 05/04/19 8:45 am (Please follow up as schedule...) NONE,PCP [Non-Partnered Physician] - - Diet and Activity Activity: increase activity as tolerated Diet: low salt diet, other (fluid restriction of 1.5 liter) <Jorden Harvey - Last Filed: 04/27/19 16:23> Orders not resulted at time of discharge: Pending orders 04/27/19 06:58 CT head/brain wo con [CT] Stat 04/27/19 07:07 XR humerus RT [XR] Stat 04/27/19 09:30 Culture,Body Fluid [RM] Routine Gram Stain [RM] Routine 04/28/19 04:00 Basic Metabolic Panel AM 0400 CBC [Complete Blood Count] [HEME] AM 0400 Magnesium AM 0400 Phosphorous AM 0400 04/29/19 04:00 Basic Metabolic Panel AM 0400 CBC [Complete Blood Count] [HEME] AM 0400 Magnesium AM 0400 Phosphorous AM 0400 04/30/19 04:00 Basic Metabolic Panel AM 0400 CBC [Complete Blood Count] [HEME] AM 0400 Magnesium AM 0400 Phosphorous AM 0400 05/01/19 04:00 Basic Metabolic Panel AM 0400 CBC [Complete Blood Count] [HEME] AM 0400 Magnesium AM 0400 Phosphorous AM 0400 05/02/19 04:00 Basic Metabolic Panel AM 0400 CBC [Complete Blood Count] [HEME] AM 0400 Magnesium AM 0400 Phosphorous AM 0400 Date of Encounter: 04/27/19 - Discharge Diagnosis (1) Acute exacerbation of CHF (congestive heart failure) Status: Acute Qualifiers: Heart failure type: combined systolic and diastolic Qualified Code(s): I50.43 - Acute on chronic combined systolic (congestive) and diastolic (congestive) heart failure (2) ESRD (end stage renal disease) on dialysis Status: Chronic (3) Hypertension Status: Acute Qualifiers: Qualified Code(s): I10 - Essential (primary) hypertension (4) Diabetes mellitus Status: Chronic Qualifiers: Diabetes mellitus type: type 2 Diabetes mellitus [place] insulin use: without senior living use Diabetes mellitus complication status: with kidney complications Diabetes mellitus complication detail: with chronic kidney disease Chronic kidney disease stage: on chronic dialysis Qualified Code(s): E11.22 - Type 2 diabetes mellitus with diabetic chronic kidney disease; N18.6 - End stage renal disease; Z99.2 - Dependence on renal dialysis (5) DVT prophylaxis Status: Acute Hospital course: Mr. Bassett is a 79 year old male - Time Spent with Patient Total time spent providing and/or coordinating discharge services: Date of admission: 04/27/19 12:37 Primary care physician: Malik Roberts Consults: 04/25/19 15:17 Consult to Nephrology [CONS] Stat Consulting Provider: Kidney Tonya/RONALDO/ESTEFANI/MIKKI Reason for Consult: fluid overload. Missed dialysis Call Completed: Yes 04/25/19 15:31 Consult to Dialysis [CONS] Stat 04/25/19 18:08 Consult to Mortar Mixer [CONS] Routine Reason for SW Consult: HD patient, possible need for further services upon discharge 04/26/19 11:24 Consult to Cardiology [CONS] Routine Comment: Consulting Provider: Cardiology Tonya Reason for Consult: worsening cardiomyopathy with volume overload EF 25% Call Completed: No 04/27/19 07:30 Consult to Dialysis [CONS] ONCE 04/27/19 07:51 Consult to Nurse Navigator [CONS] Routine Comment: - Constitutional Vitals: Temp Pulse Resp BP Pulse Ox 97.5 F L 93 18 109/62 98 04/27/19 14:15 04/27/19 11:20 04/27/19 14:15 04/27/19 14:30 04/27/19 14:05 - Attending Attestation I have seen and independently assessed this patient and I agree with plan per resident EXam Gen. NAD. AAOx 3 CVS. S1 S2 WNL Resp. Coarse breath sounds and crackles Ext. 2+ pitting edema Plan Volume overload 2/2 to cute on chronic systolic CHF and ERSD-DD with missed dialysis. Improved s/p diuresis with lasix, thoracentesis and 2 dialysis sessions. Patient has new EF 25% and was seen by cardiology and offered ischemic workup but declined. He also had a fall this am but refused CT head and xray of the shoulder. He insisted on being discharged today and says he will follow up with his outpatient tumbler plater
[2019-04-27 15:43] LABS: Basophils,Pleural Fluid 0 %; Eosinophils,Pleural Fluid 0 %
[2019-04-27 17:40] VITALS: BP 129/67
[2019-04-27] MEDS ORDERED: Pregabalin 75 MG CAPSULE PO SCH (18:00)
== END 2019-04-27 18:25 | disposition home or self-care (01) | DRG 291 ==
LOC: 2ANU 12:55 → EMEROOARM 12:55 → 2ANU 16:18
PROVIDERS: ADMIT Student in an Organized Health Care Education/Training Program; ATTEND Student in an Organized Health Care Education/Training Program